=== PATIENT | male | born 1965 | race Caucasian/White ===

== ENCOUNTER → 2022-10-01 11:33 | Outpatient (CLI) | payer MEDICARE, MEDICAID, SELFPAY ==
[2022-10-01 19:18] LABS: Add Manual Diff / Slide Review NO; Basophils Absolute Auto 100 /uL (0-100); Basophils Percent Auto 0.7 % (0-2); Eosinophils Absolute Auto 400 /uL (0-450); Eosinophils Percent Auto 3.6 % (2-4); Hematocrit 48.3 % (41-53); Hemoglobin 16.7 g/dL (13.5-17.5); Lymphocytes Absolute Auto 1800 /uL (1100-4500); Lymphocytes Percent Auto 18.1 % (25-40); Mean Corpuscular HGB Conc 34.6 % (30-36); Mean Corpuscular Volume 86.5 fL (80-100); Monocytes Absolute Auto 600 /uL (0-900); Monocytes Percent Auto 6.5 % (3-14); Neutrophils Absolute Auto 6900 /uL (1500-7000); Neutrophils Percent Auto 71.1 % (50-75); Platelet Count 334 X10^3/uL (150-400); Red Blood Cell Count 5.58 X10^6/uL (4.5-5.9); Red Cell Distribution Width 14.3 % (11.6-14.8); White Blood Cell Count 9.7 X10^3/uL (4.5-11.0)
[2022-10-01 19:40] LABS: Alanine Aminotransferase 31 IU/L (<50); Albumin 4.5 g/dL (3.5-5.0); Albumin Globulin Ratio 1.5 (1.0-2.8); Alkaline Phosphatase 99 U/L (38-126); Aspartate Aminotransferase 31 IU/L (17-59); Bilirubin Total 0.8 mg/dL (0.2-1.3); Blood Urea Nitrogen 17 mg/dL (9-20); C-Reactive Protein Quant 0.6 mg/dL (<1.0); Calcium 9.3 mg/dL (8.4-10.2); Carbon Dioxide 30 mmol/L (22-32); Chloride 101 mmol/L (98-107); Cholesterol 180 mg/dL (140-199); Estimated Glomerular Filt Rate > 60 mL/min (>60); Globulin 3.1 g/dL (1.7-4.1); Glucose 106 mg/dL (70-100); HDL Cholesterol 34 mg/dL (40-60); HEMOLYSIS 16 (0-50); LDL Cholesterol Calculated 120 mg/dL (<100); Potassium 4.5 mmol/L (3.4-5.1); Sodium 138 mmol/L (137-145); Total Protein 7.6 g/dL (6.3-8.2); Triglycerides 130 mg/dL (35-150)
[2022-10-01 19:45] LABS: NT-proBNP (BNP-Adult 18+) 511 pg/mL (<125)
[2022-10-01 20:02] LABS: Erythrocyte Sedimentation Rate 4 MM/HR (0-15)
[2022-10-01 20:06] LABS: TSH w/ Reflex to FT4 1.66 uIU/mL (0.47-4.68)
[2022-10-02 23:36] LABS: x Labcorp Estim. Avg Glu (eAG) 123 mg/dL (.); x Labcorp Hemoglobin A1c 5.9 % (4.8-5.6)
== END ==
PROVIDERS: PCP Family Medicine; Visit Provider Family Medicine
DX: L03.90 Cellulitis, unspecified (principal); I10 Essential (primary) hypertension; R06.00 Dyspnea, unspecified; I89.0 Lymphedema, not elsewhere classified; M17.9 Osteoarthritis of knee, unspecified
CPT/HCPCS: 80053; 80061; 83036; 83880; 84443; 85025; 85651; 86140

== ENCOUNTER 2023-12-02 18:51 | Inpatient (IN) | payer MEDICARE, MEDICAID, SELFPAY ==
[2023-12-02] VITALS (11 sets, daily range): BP systolic 170–216; BP diastolic 97–119; PULSE 89–119; RESP 18–37; TEMP 37.2; O2SAT 92–96; BMI 53.4
--- NOTE | 2023-12-02 19:31 | DI.RAD.S_ITS ---
PROCEDURE: XR CHEST 1V INDICATIONS: suspected sepsis TECHNIQUE: One view of the chest was acquired. COMPARISON: None. FINDINGS: Surgical changes and devices: None. Lungs and pleura: Questionable mildly prominent interstitial markings. No pleural effusions or pneumothorax. Mediastinum: Mediastinal contours appear normal. Heart size is significantly enlarged. Bones and chest wall: No suspicious bony lesions. Overlying soft tissues appear unremarkable. IMPRESSION: The heart is significantly enlarged. Questionable mild prominence of the interstitial markings, correlate for signs of pulmonary edema. Dictated by: Prakash Alexander M.D. on 12/02/2023 at 20:01 Approved by: Prakash Alexander M.D. on 12/02/2023 at 20:02
--- NOTE | 2023-12-02 19:52 | PC.NURSE ---
TROUBLE CLERK note: Gave patient a complete bed bath, changed linens under him, cleaned panus folds and placed barrier cream with folded pillow cases to prevent skin breakdown. Elevated legs at knees.
[2023-12-02 20:07] LABS: Add Manual Diff / Slide Review NO; Basophils Absolute Auto 0 /uL (0-100); Basophils Percent Auto 0.4 % (0-2); Eosinophils Absolute Auto 200 /uL (0-450); Eosinophils Percent Auto 2.5 % (2-4); Hemoglobin 14.4 g/dL (13.5-17.5); Lymphocytes Absolute Auto 1100 /uL (1100-4500); Lymphocytes Percent Auto 11.1 % (25-40); Mean Corpuscular HGB Conc 32.8 % (30-36); Mean Corpuscular Hemoglobin 27.3 PG (26-34); Mean Corpuscular Volume 83.4 fL (80-100); Monocytes Absolute Auto 500 /uL (0-900); Monocytes Percent Auto 5.5 % (3-14); Neutrophils Absolute Auto 7700 /uL (1500-7000); Neutrophils Percent Auto 80.5 % (50-75); Platelet Count 455 X10^3/uL (150-400); Red Blood Cell Count 5.28 X10^6/uL (4.5-5.9); Red Cell Distribution Width 15.7 % (11.6-14.8); White Blood Cell Count 9.5 X10^3/uL (4.5-11.0)
--- NOTE | 2023-12-02 20:07 | PC.NURSE ---
Pt reports that he fell and hit his head. Pt denies C spine pain. Dr Shankar notified and asked if he wanted C collar placed. did not want C collar placed.
[2023-12-02 20:22] LABS: INR 1.1 (0.9-1.3); Prothrombin Time 12.9 SECONDS (9.4-12.5)
[2023-12-02 20:25] LABS: PTT Partial Thromboplastin Tim 38 SECONDS (25.1-36.5)
[2023-12-02 20:31] LABS: Alanine Aminotransferase 17 IU/L (<50); Albumin 3.6 g/dL (3.5-5.0); Alkaline Phosphatase 104 U/L (38-126); Aspartate Aminotransferase 18 IU/L (17-59); Bilirubin Total 0.4 mg/dL (0.2-1.3); Blood Urea Nitrogen 16 mg/dL (9-20); Calcium 8.5 mg/dL (8.4-10.2); Carbon Dioxide 31 mmol/L (22-32); Chloride 99 mmol/L (98-107); Estimated Glomerular Filt Rate > 60 mL/min (>60); Globulin 3.5 g/dL (1.7-4.1); Glucose 97 mg/dL (70-100); HEMOLYSIS < 15 (0-50); Lipase 62 U/L (23-300); Potassium 4.1 mmol/L (3.4-5.1); Sodium 137 mmol/L (137-145); Total Protein 7.1 g/dL (6.3-8.2)
[2023-12-02 20:33] LABS: Lactate (Lactic Acid) 1.3 mmol/L (0.7-2.1)
[2023-12-02] MEDS: SODIUM CHLORIDE 0.9% 1,000 ML 1000 ML IV (20:39)
[2023-12-02 20:59] LABS: Bacteria Urine None Seen; Culture Indicated Urine Cult Not Indicated; RBC Urine None Seen (0-5/HPF); Squamous Epithelial Cell Urine None Seen (0-5/HPF); Urine Volume 10mL (spun); WBC Urine None Seen (0-5/HPF)
--- NOTE | 2023-12-02 21:34 | ED_ITS ---
HPI - Fall General Chief Complaint: Fall Stated Complaint: Found Down x4 Days Time Seen by Provider: 12/02/23 19:26 Source: patient and EMS Mode of arrival: EMS History of Present Illness HPI Narrative: Patient is a 58-year-old male who arrives in the emergency department by EMS after they were called by the patient's family member who found him on the floor of his house. Patient states he has had quite a bit of mobility issues secondary to back pain and knee discomfort. He also has lower extremity swelling. He states he was difficulty with mobility at baseline. Several days ago he was sitting on a chair in his house. He states the chair broke and he fell backwards. He did hit his head. No loss of consciousness. He states he was unable to get up off of the floor secondary to weakness. He has been lying on the floor for the past 4 days. Has not had much to eat or drink at this time. He stated that he was near the refrigerator and was able to get some small things out of the refrigerator but has been unable to stand and get up. He was a family member who came over to check on him found him sitting on the floor. He reports no chest pain or shortness of breath. No extremity injuries. He does have some bruising to his right shoulder but is able to move 4 extremities. Related Data Home Medications Medication Instructions Recorded Confirmed furosemide 20 mg tablet 20 mg PO DAILY 12/03/23 12/03/23 spironolactone 25 mg tablet 25 mg PO DAILY 12/03/23 12/03/23 Previous Rx's Medication Instructions Recorded citalopram 20 mg tablet 20 mg PO DAILY #30 tabs 09/18/22 gabapentin 100 mg capsule 100 mg PO TID #60 caps 09/18/22 furosemide 20 mg tablet 20 mg PO QAM to decrease swelling. 07/20/23 take every morning #30 tabs spironolactone 25 mg tablet 25 mg PO DAILY #30 tabs 07/20/23 Allergies Allergy/AdvReac Type Severity Reaction Status Date / Time No Known Drug Allergies Allergy Verified 07/20/23 15:40 Review of Systems Review of Systems ROS Unobtainable: All systems reviewed & are unremarkable except as noted in HPI and below Patient History Medical History Opioid dependence in remission Morbid obesity with BMI of 45.0-49.9, adult Hypertension Lymphedema Cellulitis Social History household members: none Smoking Status: Current every day smoker alcohol intake: former additional social history: On disability No current insurance divorce, loss of dog, deaths, depressed tobacco: wants to quit food: tries to eat healthy -- but likes burgers -- eats veggies, quit etoh -- a long time ago -- recently increased- 2-3 /week HISTORY OF OPIOID addiction for PAIN -- off now sig trouble with mobility and car is not working pt has had sig problems with blood pressure in the past -- stops medication 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 [facility] 09/2022 Smoking Status: Current every day smoker Exam Initial Vital Signs Initial Vital Signs: Vital Signs Pulse Rate 103 H 12/02/23 19:06 Blood Pressure 216/116 H 12/02/23 19:06 Pulse Oximetry 93 12/02/23 19:06 Const General: disheveled and No ill appearing Nutritional Appearance: overweight HENVT Head: normal to inspection and normocephalic Mouth: moist mucous membranes (Dry mucous membranes) Resp Effort & Inspection: normal respiratory effort Auscultation: clear to auscultation bilaterally Cardio Rate: regular rate Rhythm: regular rhythm Back/Spine/Pelvis Cervical Spine: No cervical spinal tenderness Skin Other: Contusion to right shoulder Neuro General: patient alert, patient awake, patient oriented x3 and moves all extremities Extrem General: edema Course Orders Ordered: ED Orders 12/02/23 19:19 CK [Creatine Kinase] Stat Comprehensive Metabolic Panel Stat Lactate (Lactic Acid) Stat Lipase Stat Procalcitonin Stat 12/02/23 19:30 Consult to [employer] - Property Technician Stat 12/02/23 19:31 XR chest 1V Stat EKG-12 Lead Stat RT Consult Eval and Treat NOW 12/02/23 19:55 Complete Blood Count AUTO DIFF Stat PTT Partial Thromboplastin [place] Stat Prothrombin Time INR Stat 12/02/23 20:14 Blood Culture Stat 12/02/23 20:39 Urine Microscopic Stat 12/02/23 22:43 Education, smoking cessation ONGOING 12/02/23 22:46 Consult to Occupational Therapy Evaluate & Treat 12/02/23 22:47 Consult to Physical Therapy Evaluate & Treat Acetaminophen (Acetaminophen 325 Mg Tablet) 650 mg PO Q6H PRN PRN Reason: Fever/Mild Pain (1-3) Hydrocodone Bitart/Acetaminophen (Hydrocodone/Acet 5/325 Tablet) 1 tab PO Q4H PRN PRN Reason: Pain, Moderate (4-6) Last Admin: 12/03/23 01:38 Dose: 1 tab Documented By: Heparin Sodium (Porcine) (Heparin 5,000 Unit/Ml Vial) 5,000 unit SUBCUT BID [facility] Last Admin: 12/03/23 01:38 Dose: 5,000 unit Documented By: Sodium Chloride (Normal Saline 0.9%) 1,000 mls @ 100 mls/hr IV CONT [facility] Last Admin: 12/03/23 01:10 Dose: 100 mls/hr Documented By: Naloxone HCl (Naloxone 0.4 Mg/Ml Vial) 0.2 mg IV Q2MIN PRN PRN Reason: Opiate Reversal Ondansetron HCl (Ondansetron 4 Mg/2 Ml Inj) 4 mg IV NOW PRN PRN Reason: Nausea And Vomiting Ondansetron HCl (Ondansetron 4 Mg Odt) 4 mg SL NOW PRN PRN Reason: Nausea And Vomiting Ondansetron HCl (Ondansetron 4 Mg/2 Ml Inj) 4 mg IV Q8HR PRN PRN Reason: Nausea And Vomiting Oxycodone/Acetaminophen (Oxycodone/Acetaminophen 5/325 Tablet) 1 tab PO Q6HR PRN PRN Reason: Pain, Moderate (4-6) Sodium Chloride (Sodium Chloride 0.9% Flush) 10 ml IV PRN PRN PRN Reason: Flush Sodium Chloride (Sodium Chloride 0.9% Flush) 10 ml IV BID [facility] Zolpidem Tartrate (Zolpidem 5 Mg Tablet) 5 mg PO BEDTIME PRN PRN Reason: Sleep Last Admin: 12/03/23 01:38 Dose: 5 mg Documented By: Discontinued Medications Sodium Chloride (Normal Saline 0.9%) 1,000 mls @ 1,000 mls/hr IV BOLUS ONE Stop: 12/02/23 20:30 Last Infusion: 12/02/23 22:14 Dose: Infused Documented By: Admin: 12/02/23 20:39 Dose: 1,000 mls/hr Documented By: Vital Signs Vital signs: Vital Signs - 8 hr 12/02/23 19:06 12/02/23 19:06 12/02/23 19:18 Temperature 98.9 F Pulse Rate 103 H 119 H Pulse Rate [Bilateral Dorsalis Pedis] Respiratory Rate 24 Blood Pressure 216/116 H 216/116 H Pulse Oximetry 93 92 Oxygen Delivery Method Room Air 12/02/23 19:37 12/02/23 19:41 12/02/23 19:59 Temperature Pulse Rate 95 H Pulse Rate [Bilateral Dorsalis Pedis] 100 H Respiratory Rate Blood Pressure 208/119 H Pulse Oximetry Oxygen Delivery Method 12/02/23 19:59 12/02/23 20:00 12/02/23 20:30 Temperature Pulse Rate 92 H 89 93 H Pulse Rate [Bilateral Dorsalis Pedis] Respiratory Rate 24 30 H 37 H Blood Pressure Pulse Oximetry 96 Oxygen Delivery Method 12/02/23 20:34 12/02/23 20:34 12/02/23 21:00 Temperature Pulse Rate 93 H Pulse Rate [Bilateral Dorsalis Pedis] Respiratory Rate 25 H Blood Pressure 193/108 H 197/98 H Pulse Oximetry 93 Oxygen Delivery Method 12/02/23 21:00 12/02/23 21:30 12/02/23 21:30 Temperature Pulse Rate 91 H 93 H Pulse Rate [Bilateral Dorsalis Pedis] Respiratory Rate 20 18 Blood Pressure 170/97 H Pulse Oximetry 95 95 Oxygen Delivery Method MDM - Fall Lab Data Attestation: I reviewed the patient's lab results. 12/02/23 19:55 12/02/23 19:19 Labs: Lab Results 12/02/23 12/02/23 12/02/23 Range/Units 19:19 19:55 20:39 WBC 9.5 (4.5-11.0) X10^3/uL RBC 5.28 (4.5-5.9) X10^6/uL Hgb 14.4 (13.5-17.5) g/dL Hct 44.0 (41-53) % MCV 83.4 (80-100) fL MCH 27.3 (26-34) PG MCHC 32.8 (30-36) % RDW 15.7 H (11.6-14.8) % Plt Count 455 H (150-400) X10^3/uL Neut % (Auto) 80.5 H (50-75) % Lymph % (Auto) 11.1 L (25-40) % Rich % (Auto) 5.5 (3-14) % Eos % (Auto) 2.5 (2-4) % Baso % (Auto) 0.4 (0-2) % Neut # (Auto) 7700 H (9611-5659) /uL Lymph # (Auto) 1100 (3414-1088) /uL Rich # (Auto) 500 (0-900) /uL Eos # (Auto) 200 (0-450) /uL Baso # (Auto) 0 (0-100) /uL PT 12.9 H (9.4-12.5) SECONDS INR 1.1 (0.9-1.3) APTT 38 H (25.1-36.5) SECONDS Sodium 137 (137-145) mmol/L Potassium 4.1 (3.4-5.1) mmol/L Chloride 99 (98-107) mmol/L Carbon Dioxide 31 (22-32) mmol/L BUN 16 (9-20) mg/dL Creatinine 1.14 (0.66-1.25) mg/dL Estimated GFR > 60 (>60) mL/min BUN/Creatinine Ratio 14.0 (6-22) Glucose 97 (70-100) mg/dL Lactate 1.3 (0.7-2.1) mmol/L Calcium 8.5 (8.4-10.2) mg/dL Total Bilirubin 0.4 (0.2-1.3) mg/dL AST 18 (17-59) IU/L ALT 17 (<50) IU/L Alkaline Phosphatase 104 (38-126) U/L Total Creatine Kinase 34 L (55-170) U/L Total Protein 7.1 (6.3-8.2) g/dL Albumin 3.6 (3.5-5.0) g/dL Globulin 3.5 (1.7-4.1) g/dL Albumin/Globulin Ratio 1.0 (1.0-2.8) Lipase 62 (23-300) U/L Procalcitonin 0.050 (<0.5) ng/mL Urine RBC None seen (0-5/HPF) Urine WBC None seen (0-5/HPF) Ur Squamous Epith Cells None seen (0-5/HPF) Urine Bacteria None seen (None) Ur Culture Indicated? Cult not indicated Vol Urine Centrifuged 10ml (spun) Point of Care Testing Glucose POC 88 Urine Dip Bedside Urine Glucose Negative Bedside Urine Bilirubin - Negative Bedside Urine Ketone - Negative Urine Specific [place] 1.010 Bedside Urine Occult Blood - Negative Bedside Urine pH 7.0 Bedside Urine Protein +/- 15 Bedside Urine Urobilinogen - Negative Bedside Urine Nitrite - Negative Bedside Urine Leukocytes - Negative Esterase Imaging Data Chest x-ray: Radiologist's Impression: PROCEDURE: XR CHEST 1V INDICATIONS: suspected sepsis TECHNIQUE: One view of the chest was acquired. COMPARISON: None. FINDINGS: Surgical changes and devices: None. Lungs and pleura: Questionable mildly prominent interstitial markings. No pleural effusions or pneumothorax. Mediastinum: Mediastinal contours appear normal. Heart size is significantly enlarged. Bones and chest wall: No suspicious bony lesions. Overlying soft tissues appear unremarkable. IMPRESSION: The heart is significantly enlarged. Questionable mild prominence of the interstitial markings, correlate for signs of pulmonary edema. MDM Narrative Medical decision making narrative: Patient was clinically dehydrated as he does have dry mucous membranes poor skin turgor. I suspect that this is because he has had little to drink over the past couple days because of lying on the ground. He does have contusion to his right shoulder but has full range of motion of the right shoulder. No lower extremity tenderness. Neck is cleared by nexus criteria. He did hit his head but that was 4 days ago and he was alert and oriented with a GCS of 15 in his not on anticoagulation. He was not in rhabdo. Given his presentation today in his dehydration in his lack of mobility recommended admission to the hospital. Discussed the case with Dr. Hooks hospitalist on-call who will admit. Discussed the need for admission with the patient who expressed understanding and agreement as well. Discharge Plan Departure Patient Disposition: Admitted as Observation Clinical Impression: Dehydration, Contusion of right shoulder Admit Date/Time: 12/02/23 23:18 Admit Provider: Jorge Hooks
[2023-12-02 21:53] LABS: Creatine Kinase 34 U/L (55-170)
[2023-12-03] VITALS (7 sets, daily range): BP systolic 160–182; BP diastolic 78–118; PULSE 85–94; RESP 16–18; TEMP 36.8–37.5; O2SAT 94–98
[2023-12-03] MEDS: SODIUM CHLORIDE 0.9% 1,000 ML 100 ML IV (01:10)
[2023-12-03] MEDS: ZOLPIDEM 5 MG TABLET PO (01:38)
[2023-12-03] MEDS: HYDROCODONE/ACET 5/325 TABLET 1 TAB PO ×2 (01:38→06:06)
[2023-12-03] MEDS: HEPARIN 5,000 UNIT/ML VIAL 5000 UNIT SUBCUT ×3 (01:38→22:34)
[2023-12-03 06:00] LABS: Add Manual Diff / Slide Review NO; Basophils Absolute Auto 200 /uL (0-100); Basophils Percent Auto 3.2 % (0-2); Eosinophils Absolute Auto 200 /uL (0-450); Eosinophils Percent Auto 3.6 % (2-4); Hematocrit 38.8 % (41-53); Hemoglobin 12.9 g/dL (13.5-17.5); Lymphocytes Absolute Auto 1200 /uL (1100-4500); Lymphocytes Percent Auto 18.9 % (25-40); Mean Corpuscular HGB Conc 33.3 % (30-36); Mean Corpuscular Hemoglobin 27.5 PG (26-34); Mean Corpuscular Volume 82.6 fL (80-100); Monocytes Absolute Auto 500 /uL (0-900); Monocytes Percent Auto 7.1 % (3-14); Neutrophils Absolute Auto 4300 /uL (1500-7000); Neutrophils Percent Auto 67.2 % (50-75); Platelet Count 457 X10^3/uL (150-400); Red Blood Cell Count 4.69 X10^6/uL (4.5-5.9); White Blood Cell Count 6.5 X10^3/uL (4.5-11.0)
--- NOTE | 2023-12-03 06:07 | PM.HP.1 ---
History of Present Illness History of Present Illness Chief complaint: Found Down x4 Days Narrative: 58-year-old with past medical history of hypertension, morbid obesity, chronic lower extremities lymphedema, opioid dependence in remission, presents with a fall and was found down for four days. Per the patient report, the patient was sitting in his recliner when it collapsed and he fell to the floor. The patient had contusion of his right shoulder. The patient was too weak to get up and was down on the ground for three almost 4 days. Patient denies any lost of consciousness, but admit to hit his head lightly. Patient denies any headache. In our ER, the patient was hemodynamically stable without any signs of infection. Chest x-ray shows now clear sign of pneumonia. The patient, however, saturating well. Due to , patient shoulder pain as well as difficulty functioning at home, our ER physician would like to admit the patient for IV fluid hydration as well as for physical therapy. [facility] Medical History Opioid dependence in remission Morbid obesity with BMI of 45.0-49.9, adult Hypertension Lymphedema Cellulitis Social History household members: none Smoking Status: Current every day smoker alcohol intake: former additional social history: On disability No current insurance divorce, loss of dog, deaths, depressed tobacco: wants to quit food: tries to eat healthy -- but likes burgers -- eats veggies, quit etoh -- a long time ago -- recently increased- 2-3 /week HISTORY OF OPIOID addiction for PAIN -- off now sig trouble with mobility and car is not working pt has had sig problems with blood pressure in the past -- stops medication 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 [facility] 09/2022 Meds Home Medications and Allergies Home Medications Medication Instructions Recorded Confirmed Type citalopram 20 mg tablet 20 mg PO DAILY #30 tabs 09/18/22 07/20/23 Rx gabapentin 100 mg capsule 100 mg PO TID #60 caps 09/18/22 07/20/23 Rx furosemide 20 mg tablet 20 mg PO QAM to decrease swelling. 07/20/23 07/20/23 Rx take every morning #30 tabs spironolactone 25 mg tablet 25 mg PO DAILY #30 tabs 07/20/23 07/20/23 Rx furosemide 20 mg tablet 20 mg PO DAILY 12/03/23 12/03/23 History spironolactone 25 mg tablet 25 mg PO DAILY 12/03/23 12/03/23 History Allergies Allergy/AdvReac Type Severity Reaction Status Date / Time No Known Drug Allergies Allergy Verified 07/20/23 15:40 Review of Systems Review of Systems ROS: Yes All systems reviewed with the patient and are negative except as otherwise documented Exam Vital Signs (past 8 hours): - 12/03/23 00:10 12/03/23 00:27 12/03/23 05:00 Temperature 98.9 F 98.4 F 98.8 F Pulse Rate 93 H 85 86 Respiratory Rate 18 16 18 Blood Pressure 176/118 H 165/78 H 160/102 H Pulse Oximetry 94 94 96 Oxygen Delivery Method Room Air Oxygen Flow Rate 0 0 Oxygen Delivery Method Room Air Oxygen Flow Rate 0 Narrative Exam Narrative: GENERAL: Morbid obese male. The patient is not in any acute distressed. Awake and alert. HEENT: Nonicteric sclerae, PERRLA, EOMI. Oropharynx clear. Moist mucous membranes. Conjunctivae appear well perfused. HEART: Regular rate and rhythm without murmurs. No lower extremities edema. LUNGS: Clear to auscultation bilaterally. No wheezing, crackles or rhonchi ABDOMEN: Soft, positive bowel sounds, nontender. SKIN: Bilateral LEs lymphadema with R>L No rash, no excessive bruising, petechiae, or purpura. NEUROLOGIC: AxO x 3. Cranial nerves II-XII intact without motor/sensory deficit. Objective Labs 12/03/23 05:30 12/02/23 19:19 Labs: Laboratory Results - last 24 hr 12/02/23 12/02/23 12/02/23 19:19 19:55 20:39 WBC 9.5 RBC 5.28 Hgb 14.4 Hct 44.0 MCV 83.4 MCH 27.3 MCHC 32.8 RDW 15.7 H Plt Count 455 H Neut % (Auto) 80.5 H Lymph % (Auto) 11.1 L [place] % (Auto) 5.5 Eos % (Auto) 2.5 Baso % (Auto) 0.4 Neut # (Auto) 7700 H Lymph # (Auto) 1100 [place] # (Auto) 500 Eos # (Auto) 200 Baso # (Auto) 0 PT 12.9 H INR 1.1 APTT 38 H Sodium 137 Potassium 4.1 Chloride 99 Carbon Dioxide 31 BUN 16 Creatinine 1.14 Estimated GFR > 60 BUN/Creatinine Ratio 14.0 Glucose 97 Lactate 1.3 Calcium 8.5 Total Bilirubin 0.4 AST 18 ALT 17 Alkaline Phosphatase 104 Total Creatine Kinase 34 L Total Protein 7.1 Albumin 3.6 Globulin 3.5 Albumin/Globulin Ratio 1.0 Lipase 62 Procalcitonin 0.050 Urine RBC None seen Urine WBC None seen Ur Squamous Epith Cells None seen Urine Bacteria None seen Ur Culture Indicated? Cult not indicated Vol Urine Centrifuged 10ml (spun) 12/03/23 05:30 WBC 6.5 RBC 4.69 Hgb 12.9 L Hct 38.8 L MCV 82.6 MCH 27.5 MCHC 33.3 RDW 16.0 H Plt Count 457 H Neut % (Auto) 67.2 Lymph % (Auto) 18.9 L [place] % (Auto) 7.1 Eos % (Auto) 3.6 Baso % (Auto) 3.2 H Neut # (Auto) 4300 Lymph # (Auto) 1200 [place] # (Auto) 500 Eos # (Auto) 200 Baso # (Auto) 200 H PT INR APTT Sodium Potassium Chloride Carbon Dioxide BUN Creatinine Estimated GFR BUN/Creatinine Ratio Glucose Lactate Calcium Total Bilirubin AST ALT Alkaline Phosphatase Total Creatine Kinase Total Protein Albumin Globulin Albumin/Globulin Ratio Lipase Procalcitonin Urine RBC Urine WBC Ur Squamous Epith Cells Urine Bacteria Ur Culture Indicated? Vol Urine Centrifuged Assessment & Plan Assessment & Plan narrative: Mechanical Fall with right shoulder contusion. Admit the patient to medical floor under observation. Note CK levels is not elevated. Patient is morbidly obese with chronic lowwer extremities lymphedema. Will need PTOT in the morning. We need reassessment for any home Health need at home. Dehydration. Patient states that he was down for at least three days. IV fluid and monitor renal function and electrolyte. Hypertension. Monitor blood pressure medication accordingly. DVT prophylaxis heparin Q. Code status full code. Disposition likely to home with home health in 1 to 2 days. Time-Based Coding :: [TOTAL MINUTES] spent with patient and on the chart (including review of chart, obtaining history, exam, reviewing outside data, placing orders, documenting exam and treatment plan, and counseling patient) on [DATE].
[2023-12-03 06:16] LABS: Alanine Aminotransferase 14 IU/L (<50); Albumin 3.4 g/dL (3.5-5.0); Alkaline Phosphatase 91 U/L (38-126); Aspartate Aminotransferase 17 IU/L (17-59); BUN Creatinine Ratio 13.7 (6-22); Bilirubin Total 0.5 mg/dL (0.2-1.3); Blood Urea Nitrogen 13 mg/dL (9-20); Calcium 8.3 mg/dL (8.4-10.2); Carbon Dioxide 30 mmol/L (22-32); Chloride 100 mmol/L (98-107); Estimated Glomerular Filt Rate > 60 mL/min (>60); Globulin 3.3 g/dL (1.7-4.1); Glucose 99 mg/dL (70-100); HEMOLYSIS < 15 (0-50); Potassium 3.9 mmol/L (3.4-5.1); Sodium 136 mmol/L (137-145); Total Protein 6.7 g/dL (6.3-8.2)
[2023-12-03] MEDS: SPIRONOLACTONE 25 MG TABLET PO (08:53)
[2023-12-03] MEDS: OXYCODONE/ACETAMINOPHEN 5/325 TABLET 1 TAB PO (08:53)
[2023-12-03] MEDS: GABAPENTIN 100 MG CAPSULE PO ×3 (08:53→22:34)
[2023-12-03] MEDS: SODIUM CHLORIDE 0.9% FLUSH 10 ML IV ×2 (08:54→22:34)
[2023-12-03 11:09] LABS: C-Reactive Protein Quant 5.6 mg/dL (<1.0)
[2023-12-03 11:23] LABS: Procalcitonin 0.059 ng/mL (<0.5)
[2023-12-03 11:33] LABS: Erythrocyte Sedimentation Rate 1 MM/HR (0-15)
[2023-12-03] MEDS: cefTRIAXone 1,000 MG in SODIUM CHLORIDE 0.9% 100 ML 200 MG IV (11:35)
--- NOTE | 2023-12-03 12:21 | PT-IP ANOTE ---
PT consult received. PT reviewed chart and checked in on pt. Pt states that he has just started eating lunch. Will con't PT efforts at a later time.
[2023-12-03] MEDS: VANCOMYCIN 2,500 MG in SODIUM CHLORIDE 0.9% 500 ML 250 MG IV (12:22)
--- NOTE | 2023-12-03 14:24 | PC.NURSE ---
Panfilo from: [employer] called in to inform us that the patient has no safe environment to go back to. He made a statement to the medics that he was just going to wait on the floor to . Child Welfare Assistant will be consulted.
--- NOTE | 2023-12-03 14:26 | P.PN_ITS ---
Subjective Subjective Date Patient Seen: 12/03/23 Time Patient Seen: 09:40 Interval history: 58-year-old with past medical history of hypertension, morbid obesity, chronic lower extremities lymphedema, opioid dependence in remission, presents with a fall and was found down for four days. Per the patient report, the patient was sitting in his recliner when it collapsed and he fell to the floor. The patient had contusion of his right shoulder. The patient was too weak to get up and was down on the ground for three almost 4 days. Patient denies any lost of consciousness, but admit to hit his head lightly. Patient denies any headache. In our ER, the patient was hemodynamically stable without any signs of infection. Chest x-ray shows now clear sign of pneumonia. The patient, however, saturating well. Due to , patient shoulder pain as well as difficulty functioning at home, our ER physician would like to admit the patient for IV fluid hydration as well as for physical therapy. Interval history: Patient notes that he has been weak due to chronic right lower extremity cellulitis, recurrent over the past few days, with foul-smelling discharge. Exam Vital Signs (past 8 hours): - 12/03/23 09:00 12/03/23 12:00 Temperature 98.3 F Pulse Rate 94 H Respiratory Rate 16 Blood Pressure 182/103 H 174/115 H Pulse Oximetry 98 Oxygen Flow Rate 0 Oxygen Delivery Method Room Air Oxygen Flow Rate 0 Narrative Exam Narrative: GENERAL: This is a well-nourished, well-developed patient, in no apparent distress. EYES: Pupils equal round and reactive. Extraocular motions intact. No scleral icterus. No injection or drainage. ENT: Mucous membranes pink and moist. NECK: Supple, nontender, no meningeal signs. CARDIOVASCULAR: Regular rate and rhythm without murmurs, gallops, or rubs. RESPIRATORY: Clear to auscultation. GASTROINTESTINAL: Abdomen soft, non-tender, nondistended. EXTREMITIES: 1+ right ankle edema. NEUROLOGIC: Alert, oriented, speech fluent, full upper and lower motor strength, no focal deficits evident. DERMATOLOGIC: Extensive cellulitic change from right posterior ankle ankle to proximal posterior and lateral calf just behind the knee, with purulent foul- smelling discharge. Objective Labs 12/03/23 05:30 12/03/23 05:30 Labs: Laboratory Results - last 24 hr 12/02/23 12/02/23 12/02/23 19:19 19:55 20:39 WBC 9.5 RBC 5.28 Hgb 14.4 Hct 44.0 MCV 83.4 MCH 27.3 MCHC 32.8 RDW 15.7 H Plt Count 455 H Neut % (Auto) 80.5 H Lymph % (Auto) 11.1 L [place] % (Auto) 5.5 Eos % (Auto) 2.5 Baso % (Auto) 0.4 Neut # (Auto) 7700 H Lymph # (Auto) 1100 [place] # (Auto) 500 Eos # (Auto) 200 Baso # (Auto) 0 ESR PT 12.9 H INR 1.1 APTT 38 H Sodium 137 Potassium 4.1 Chloride 99 Carbon Dioxide 31 BUN 16 Creatinine 1.14 Estimated GFR > 60 BUN/Creatinine Ratio 14.0 Glucose 97 Lactate 1.3 Calcium 8.5 Total Bilirubin 0.4 AST 18 ALT 17 Alkaline Phosphatase 104 Total Creatine Kinase 34 L C-Reactive Protein Total Protein 7.1 Albumin 3.6 Globulin 3.5 Albumin/Globulin Ratio 1.0 Lipase 62 Procalcitonin 0.050 Urine RBC None seen Urine WBC None seen Ur Squamous Epith Cells None seen Urine Bacteria None seen Ur Culture Indicated? Cult not indicated Vol Urine Centrifuged 10ml (spun) 12/03/23 05:30 WBC 6.5 RBC 4.69 Hgb 12.9 L Hct 38.8 L MCV 82.6 MCH 27.5 MCHC 33.3 RDW 16.0 H Plt Count 457 H Neut % (Auto) 67.2 Lymph % (Auto) 18.9 L [place] % (Auto) 7.1 Eos % (Auto) 3.6 Baso % (Auto) 3.2 H Neut # (Auto) 4300 Lymph # (Auto) 1200 [place] # (Auto) 500 Eos # (Auto) 200 Baso # (Auto) 200 H ESR 1 PT INR APTT Sodium 136 L Potassium 3.9 Chloride 100 Carbon Dioxide 30 BUN 13 Creatinine 0.95 Estimated GFR > 60 BUN/Creatinine Ratio 13.7 Glucose 99 Lactate Calcium 8.3 L Total Bilirubin 0.5 AST 17 ALT 14 Alkaline Phosphatase 91 Total Creatine Kinase C-Reactive Protein 5.6 H Total Protein 6.7 Albumin 3.4 L Globulin 3.3 Albumin/Globulin Ratio 1.0 Lipase Procalcitonin 0.059 Urine RBC Urine WBC Ur Squamous Epith Cells Urine Bacteria Ur Culture Indicated? Vol Urine Centrifuged [facility] Medical History Opioid dependence in remission Morbid obesity with BMI of 45.0-49.9, adult Hypertension Lymphedema Cellulitis Social History household members: none Smoking Status: Current every day smoker alcohol intake: former additional social history: On disability No current insurance divorce, loss of dog, deaths, depressed tobacco: wants to quit food: tries to eat healthy -- but likes burgers -- eats veggies, quit etoh -- a long time ago -- recently increased- 2-3 /week HISTORY OF OPIOID addiction for PAIN -- off now sig trouble with mobility and car is not working pt has had sig problems with blood pressure in the past -- stops medication 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 [facility] 09/2022 Assessment & Plan Assessment & Plan narrative: 1. Right lower extremity cellulitis, severe. Start ceftriaxone and vancomycin. Obtain blood and wound cultures. Admit to inpatient status. 2. Dehydration. Improved with overnight IV hydration. Stop and encourage oral intake. 3. Weakness and ground level fall due to 1. 4. Hypertension. Monitor blood pressure medication accordingly. 5. Severe obesity. 6. DVT prophylaxis: Subcutaneous heparin Code status full code. The patient is admitted inpatient status as he will require at least 2 midnights of inpatient level care. Plan: -inpatient status -IV antibiotics -follow cultures -PT/OT consultation Time-Based Coding :: [TOTAL MINUTES] spent with patient and on the chart (including review of chart, obtaining history, exam, reviewing outside data, placing orders, documenting exam and treatment plan, and counseling patient) on [DATE]. PROFEE Charge codes Subsequent inpatient/observation care: 32659
--- NOTE | 2023-12-03 14:26 | PC.NURSE ---
ELECTRICAL LINESWORKER consult ordered.
--- NOTE | 2023-12-03 14:47 | PC.NURSE ---
A call was made to the RN in care of Mr. Sparrow. Jorge WILEY room 209, was made aware of what Britney rice stated @ time of note.
--- NOTE | 2023-12-03 16:07 | PT-IP ANOTE ---
PT checks on pt a second time today and he is getting a bed bath. Will con't PT efforts next date.
--- NOTE | 2023-12-03 16:10 | OT.IPNOTE ---
Getting a bed bath to check on pt tomorrow for OT eval.
--- NOTE | 2023-12-03 16:29 | DIET.CONS ---
Dietary Consultation Note Admission Date: 12/02/2023 23:18 Assessment: 58 y M admitted after being found down on floor for 4 days and with lower extremity cellulitis . RD screened for low MNA score. Met w/ pt at bedside. Reports was able to eat items such as a sandwich the first day, a few various leftover items, veggie chips, and fluids during the 4 days he was down from his fridge. Before had normal intakes, but pt does note he's been trying to lose weight and will go 2-3 days without eating and has been trying to choose healthy foods - wraps and more fruits. Discouraged him from fasting for 2-3 days and provided educ on importance of multiple meals daily. Discussed importance of getting adequate energy-protein while recovering in hospital. He notes his appetite is lower than normal. Encouraged intake as tolerate. Open to try Vj to support healing. Ht: 175.26 cm Wt: 164.2 kg BMI: 53.4 UBW: 187.901 kg on 07/20/23 (-12.6% loss in 4 months, severe) Last BM: 12/02/23 (12/02/23 23:19) MNA: 8 Ranulfo Score: 16 Diet: 12/02/23 Breakfast Heart Healthy Diet Diet Modifications: 12/02/23 19:31 NPO Diet Diet Modifications: NPO Type: NPO except for Meds Labs: RBC 4.69 X10^6/uL (4.5-5.9) 12/03/23 05:30 Hgb 12.9 g/dL (13.5-17.5) L 12/03/23 05:30 Hct 38.8 % (41-53) L 12/03/23 05:30 Creatinine 0.95 mg/dL (0.66-1.25) 12/03/23 05:30 Lactate 1.3 mmol/L (0.7-2.1) 12/02/23 19:19 Nutrition Diagnosis: Inadequate oral intake r/t reduced access to food after fall on ground aeb <75% of estimated energy needs for 4 days Increased nutrient needs (protein) r/t healing aeb severe lower extremity cellulitis Interventions: 1. Vj trial 2. Monitor po intakes and supplement if intakes are less than 75% Monitoring/Evaluations: po intakes, vj tolerance Electronically Signed by: Ayaka Conti 12/03/23 16:29 Clinical Dietitian [address] [address]
[2023-12-04] VITALS (7 sets, daily range): BP systolic 130–211; BP diastolic 49–141; PULSE 74–92; RESP 16–18; TEMP 37–37.6; O2SAT 91–98
[2023-12-04] MEDS: VANCOMYCIN 1,250 MG/250 ML PIGGYBACK 250 MG IV ×3 (00:55→18:43)
--- NOTE | 2023-12-04 07:39 | PM.PN.1 ---
Subjective Subjective Date Patient Seen: 12/04/23 Time Patient Seen: 13:30 Interval history: 58-year-old with past medical history of hypertension, morbid obesity, chronic lower extremities lymphedema, opioid dependence in remission, presents with a fall and was found down for four days. Per the patient report, the patient was sitting in his recliner when it collapsed and he fell to the floor. The patient had contusion of his right shoulder. The patient was too weak to get up and was down on the ground for three almost 4 days. Patient denies any lost of consciousness, but admit to hit his head lightly. Patient denies any headache. In our ER, the patient was hemodynamically stable without any signs of infection. Chest x-ray shows now clear sign of pneumonia. The patient, however, saturating well. Due to , patient shoulder pain as well as difficulty functioning at home, our ER physician would like to admit the patient for IV fluid hydration as well as for physical therapy. Interval history: Patient reports that his right leg is less tender and swollen. He notes a longstanding history of hypertension. Exam Vital Signs (past 8 hours): - 12/04/23 00:00 Temperature 98.6 F Pulse Rate 74 Respiratory Rate 18 Blood Pressure 155/86 H Pulse Oximetry 96 Oxygen Flow Rate 0 Oxygen Delivery Method Room Air Oxygen Flow Rate 0 Narrative Exam Narrative: GENERAL: This is a well-nourished, well-developed patient, in no apparent distress. EYES: Pupils equal round and reactive. Extraocular motions intact. No scleral icterus. No injection or drainage. ENT: Mucous membranes pink and moist. NECK: Supple, nontender, no meningeal signs. CARDIOVASCULAR: Regular rate and rhythm without murmurs, gallops, or rubs. RESPIRATORY: Clear to auscultation. GASTROINTESTINAL: Abdomen soft, non-tender, nondistended. EXTREMITIES: 1+ right ankle edema. NEUROLOGIC: Alert, oriented, speech fluent, full upper and lower motor strength, no focal deficits evident. DERMATOLOGIC: Extensive but improved cellulitic change from right posterior ankle ankle to proximal posterior and lateral calf just behind the knee. Objective Labs 12/03/23 05:30 12/03/23 05:30 Labs: Laboratory Results - last 24 hr 12/03/23 05:30 ESR 1 C-Reactive Protein 5.6 H Procalcitonin 0.059 PFSH Medical History Opioid dependence in remission Morbid obesity with BMI of 45.0-49.9, adult Hypertension Lymphedema Cellulitis Social History household members: none Smoking Status: Current every day smoker alcohol intake: former additional social history: On disability No current insurance divorce, loss of dog, deaths, depressed tobacco: wants to quit food: tries to eat healthy -- but likes burgers -- eats veggies, quit etoh -- a long time ago -- recently increased- 2-3 /week HISTORY OF OPIOID addiction for PAIN -- off now sig trouble with mobility and car is not working pt has had sig problems with blood pressure in the past -- stops medication 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 [facility] 09/2022 Assessment & Plan Assessment & Plan narrative: 1. Right lower extremity cellulitis, severe. Continue ceftriaxone and vancomycin. Follow blood and wound cultures. Continue inpatient status. 2. Dehydration. Improved with overnight IV hydration. Stop and encourage oral intake. 3. Weakness and ground level fall due to 1. 4. Venous insufficiency. Start furosemide 40 mg IV every 8 hours. 5. Hypertension. Start amlodipine 5 mg daily on 12/04/2023. 6. Severe obesity. 7. DVT prophylaxis: Subcutaneous heparin Code status full code. The patient is admitted inpatient status as he will require at least 2 midnights of inpatient level care. Plan: -inpatient status -IV antibiotics -follow cultures -PT/OT consultation [facility] PROFEE Charge codes Subsequent inpatient/observation care: 82622 Lab Results Common Lab Results- Last: White Blood Count 6.5 X10^3/uL (4.5-11.0) 12/03/23 Red Blood Count 4.69 X10^6/uL (4.5-5.9) 12/03/23 Hemoglobin 12.9 g/dL (13.5-17.5) L 12/03/23 Hematocrit 38.8 % (41-53) L 12/03/23 Mean Corpuscular Volume 82.6 fL (80-100) 12/03/23 Mean Corpuscular Hemoglobin 27.5 PG (26-34) 12/03/23 Mean Corpuscular Hemoglobin Concent 33.3 % (30-36) 12/03/23 Red Cell Distribution Width 16.0 % (11.6-14.8) H 12/03/23 Platelet Count 457 X10^3/uL (150-400) H 12/03/23 Neutrophils (%) (Auto) 67.2 % (50-75) 12/03/23 Lymphocytes (%) (Auto) 18.9 % (25-40) L 12/03/23 Monocytes (%) (Auto) 7.1 % (3-14) 12/03/23 Eosinophils (%) (Auto) 3.6 % (2-4) 12/03/23 Basophils (%) (Auto) 3.2 % (0-2) H 12/03/23 Neutrophils # (Auto) 4300 /uL (8106-4473) 12/03/23 Sodium Level 136 mmol/L (137-145) L 12/03/23 Potassium Level 3.9 mmol/L (3.4-5.1) 12/03/23 Chloride Level 100 mmol/L (98-107) 12/03/23 Carbon Dioxide Level 30 mmol/L (22-32) 12/03/23 Blood Urea Nitrogen 13 mg/dL (9-20) 12/03/23 Creatinine 0.95 mg/dL (0.66-1.25) 12/03/23 Estimat Glomerular Filtration Rate > 60 mL/min (>60) 12/03/23 BUN/Creatinine Ratio 13.7 (6-22) 12/03/23 Glucose Level 99 mg/dL (70-100) 12/03/23 Calcium Level 8.3 mg/dL (8.4-10.2) L 12/03/23 Total Bilirubin 0.5 mg/dL (0.2-1.3) 12/03/23 Aspartate Amino Transf (AST/SGOT) 17 IU/L (17-59) 12/03/23 Alanine Aminotransferase (ALT/SGPT) 14 IU/L (<50) 12/03/23 Alkaline Phosphatase 91 U/L (38-126) 12/03/23 Total Protein 6.7 g/dL (6.3-8.2) 12/03/23 Albumin 3.4 g/dL (3.5-5.0) L 12/03/23 Globulin 3.3 g/dL (1.7-4.1) 12/03/23 Albumin/Globulin Ratio 1.0 (1.0-2.8) 12/03/23 Triglycerides Level 130 mg/dL (35-150) 10/01/22 Cholesterol Level 180 mg/dL (140-199) 10/01/22 HDL Cholesterol 34 mg/dL (40-60) L 10/01/22 LDL Cholesterol, Calculated 120 mg/dL (<100) H 10/01/22 Thyroid Stimulating Hormone (TSH) 1.66 uIU/mL (0.47-4.68) 10/01/22 Alanine Aminotransferase (ALT/SGPT) 14 IU/L (<50) 12/03/23 C-Reactive Protein 5.6 mg/dL (<1.0) H 12/03/23 Erythrocyte Sedimentation Rate 1 MM/HR (0-15) 12/03/23 Aspartate Amino Transf (AST/SGOT) 17 IU/L (17-59) 12/03/23 Blood Urea Nitrogen 13 mg/dL (9-20) 12/03/23 Creatinine 0.95 mg/dL (0.66-1.25) 12/03/23 Estimat Glomerular Filtration Rate > 60 mL/min (>60) 12/03/23 BUN/Creatinine Ratio 13.7 (6-22) 12/03/23 Cholesterol Level 180 mg/dL (140-199) 10/01/22 Hemoglobin 12.9 g/dL (13.5-17.5) L 12/03/23 Red Blood Count 4.69 X10^6/uL (4.5-5.9) 12/03/23 Hematocrit 38.8 % (41-53) L 12/03/23 Lipase 62 U/L (23-300) 12/02/23 Platelet Count 457 X10^3/uL (150-400) H 12/03/23 Prothrombin Time 12.9 SECONDS (9.4-12.5) H 12/02/23 Prothromb Time International Ratio 1.1 (0.9-1.3) 12/02/23
--- NOTE | 2023-12-04 09:30 | PT.IPTN ---
Current Diagnoses Contusion of right shoulder, initial encounter (12/02/23) Physical Therapy Treatment Note M3 PT-IP Subjective Start: 12/03/23 12:07 Freq: NEEDED Status: Active Protocol: Document 12/04/23 09:30 AB (Rec: 12/04/23 12:25 AB [id number]) Subjective Physical Therapy Visit Type Type Administrative Note Visit Start Time 09:30 Visit Stop Time 09:45 Notes checked on pt and obtained PLOF. Checked pt's BP prior to mobility: 211/141. nurse in room. will hold PT eval at this time due to high BP. will f/u.
[2023-12-04] MEDS: ACETAMINOPHEN 325 MG TABLET 650 MG PO (09:47)
[2023-12-04] MEDS: HEPARIN 5,000 UNIT/ML VIAL 5000 UNIT SUBCUT (09:47)
[2023-12-04] MEDS: SPIRONOLACTONE 25 MG TABLET PO (09:48)
[2023-12-04] MEDS: GABAPENTIN 100 MG CAPSULE PO ×3 (09:48→20:32)
[2023-12-04] MEDS: OXYCODONE/ACETAMINOPHEN 5/325 TABLET 1 TAB PO ×2 (09:48→20:32)
[2023-12-04] MEDS: SODIUM CHLORIDE 0.9% FLUSH 10 ML IV ×3 (09:49→23:13)
[2023-12-04] MEDS: NICOTINE 21 MG PATCH TOP (10:24)
--- NOTE | 2023-12-04 11:05 | OT.IPNOTE ---
HOLD tonia as pt having high bp 211/141.
[2023-12-04] MEDS: cefTRIAXone 1,000 MG in SODIUM CHLORIDE 0.9% 100 ML 200 MG IV (11:37)
[2023-12-04] MEDS: AMLODIPINE 5 MG TABLET PO (11:46)
[2023-12-04] MEDS: FUROSEMIDE 40 MG/4 ML VIAL IV ×2 (15:13→23:12)
--- NOTE | 2023-12-04 15:34 | CM.DANOTE ---
Initial DCP Assessment Visit Note Late Entry for 12/03/23 Reviewed EMR and team rounds for status updates. Met with pt at bedside to introduce self and role, pt was found to be alert/oriented, resting in bed, and able to briefly meet with this STUCCO PLASTERER to discuss d/c needs, which are still not quite clarified at this time. Pt resides in a trailor on his brother's property on [address]. He had been living independently, although it's not clear how much assistance he was receiving from his brother. Transport will depend on whether he returns home initially or is eligible for SNF rehab. More assessment needed. Payor: Medicare, Medicaid PCP: Neelam Doss Pt is a 58 year-old M who presented to the ED via EMS from [place] after his brother found him in his house on the floor. Pt has mobility issues at baseline, presents with significant, chronic appearing wounds on his lower extremities, and significant lower extremity lyphadema. He shared that he was sitting in his recliner when it broke, causing him to fall to the floor, and hit his head. He was reportedly on the floor for 4-days before his brother found him, although he did not have rhabdo, and was able to scoot around on the floor and get things out of the refrigerator. In the ED, he was found to be clinically dehydrated, and had cellulitis of his lower extremities. He was started on IV fluids and antibiotics, and admitted to the floor for continued tx and evaluation. Pt would benefit from a referral/consultation from the wound care clinic prior to d/c home for recommendations on further OP tx. Pt would be able to access free [employer] passes for this through his Medicaid Transportation, however he is already very limited in resources and likely would not be able to have the transportation to the [employer] from his home. Second possible option is to do a Home Health referral for wound care. DCP will continue to monitor and assist with final recs and assistance needs.
--- NOTE | 2023-12-04 16:38 | PT-IP ANOTE ---
checked on pt this afternoon and pt continues to have high BP: 176/118. will hold PT eval. will f/u tomorrow.
[2023-12-04] MEDS: VANCOMYCIN TROUGH 1 REQUEST MISC (18:00)
[2023-12-04 18:48] LABS: Vancomycin Trough 15.4 ug/mL (10-20)
[2023-12-04] MEDS: ENOXAPARIN 40 MG/0.4 ML SYRINGE SUBCUT (20:33)
[2023-12-05 01:00] VITALS: BP 160/78; PULSE 94; RESP 18; TEMP 36.6; O2SAT 99
[2023-12-05] MEDS: VANCOMYCIN 1,250 MG/250 ML PIGGYBACK 250 MG IV ×3 (02:02→18:21)
[2023-12-05] MEDS: SODIUM CHLORIDE 0.9% FLUSH 10 ML IV ×3 (02:02→08:31)
[2023-12-05] MEDS: ZOLPIDEM 5 MG TABLET PO ×2 (03:37→21:47)
[2023-12-05 05:00] VITALS: BP 156/88; PULSE 89; RESP 18; TEMP 37; O2SAT 96
[2023-12-05] MEDS: FUROSEMIDE 40 MG/4 ML VIAL IV ×2 (06:35→14:55)
[2023-12-05 06:45] LABS: BUN Creatinine Ratio 16.3 (6-22); Blood Urea Nitrogen 17 mg/dL (9-20); Calcium 8.9 mg/dL (8.4-10.2); Carbon Dioxide 35 mmol/L (22-32); Chloride 94 mmol/L (98-107); Estimated Glomerular Filt Rate > 60 mL/min (>60); Glucose 102 mg/dL (70-100); HEMOLYSIS < 15 (0-50); Magnesium 1.7 mg/dL (1.6-2.3); Potassium 3.8 mmol/L (3.4-5.1); Sodium 135 mmol/L (137-145)
[2023-12-05 08:00] VITALS: BP 156/102; PULSE 85; RESP 18; TEMP 36.5
--- NOTE | 2023-12-05 08:22 | PC.NURSE ---
Addendum entered by Neha Chauhan R.N. 12/05/23 11:08: Patient had a 6 beat run of [facility] labs at 1104. Notified. Original Note: Patient is sitting up in his chair eating his breakfast. He is pleasant and cooperative with care. He voided 600cc of light yellow urine in the urinal. Patient has cellulitis to his r.burch, area is wheepy and red. He also has flaky, dry skin to his shins and a macerated are on his bottom. He denies discomfort at this time, will ask him his pain level.
[2023-12-05] MEDS: GABAPENTIN 100 MG CAPSULE PO ×3 (08:30→21:33)
[2023-12-05] MEDS: AMLODIPINE 5 MG TABLET PO (08:30)
[2023-12-05] MEDS: NICOTINE 21 MG PATCH TOP (08:30)
[2023-12-05] MEDS: SPIRONOLACTONE 25 MG TABLET PO (08:30)
[2023-12-05] MEDS: ENOXAPARIN 40 MG/0.4 ML SYRINGE SUBCUT ×2 (08:31→21:33)
[2023-12-05] MEDS: OXYCODONE/ACETAMINOPHEN 5/325 TABLET 1 TAB PO ×2 (10:55→18:20)
[2023-12-05] MEDS: CITALOPRAM 10 MG TABLET 20 MG PO (10:55)
[2023-12-05 12:00] VITALS: BP 180/123; PULSE 83; RESP 18; TEMP 36.7; O2SAT 91
[2023-12-05] MEDS: cefTRIAXone 1,000 MG in SODIUM CHLORIDE 0.9% 100 ML 200 MG IV (12:04)
--- NOTE | 2023-12-05 12:39 | PT-IP ANOTE ---
checked on pt. pt with BP of 175/118. talked with nurse and informed regarding high BP. nurse stated that pt already got all his medications. will hold PT this morning and recheck this afternoon.
--- NOTE | 2023-12-05 13:47 | P.PN_ITS ---
Subjective Subjective Date Patient Seen: 12/05/23 Time Patient Seen: 10:50 Interval history: 58-year-old with past medical history of hypertension, morbid obesity, chronic lower extremities lymphedema, opioid dependence in remission, presents with a fall and was found down for four days. Per the patient report, the patient was sitting in his recliner when it collapsed and he fell to the floor. The patient had contusion of his right shoulder. The patient was too weak to get up and was down on the ground for three almost 4 days. Patient denies any lost of consciousness, but admit to hit his head lightly. Patient denies any headache. In our ER, the patient was hemodynamically stable without any signs of infection. Chest x-ray shows now clear sign of pneumonia. The patient, however, saturating well. Due to , patient shoulder pain as well as difficulty functioning at home, our ER physician would like to admit the patient for IV fluid hydration as well as for physical therapy. Interval history: The patient states his right leg is improving significantly with much improved edema. He has had a net 5 L diuresis since yesterday. He admits to progressive and recurrent depression and wishes to restart citalopram which she had been on in the past. Exam Vital Signs (past 8 hours): - 12/05/23 08:00 12/05/23 12:00 Temperature 97.7 F 98.1 F Pulse Rate 85 83 Respiratory Rate 18 18 Blood Pressure 156/102 H 180/123 H Pulse Oximetry 91 Oxygen Flow Rate 0 Oxygen Delivery Method Room Air Oxygen Flow Rate 0 Narrative Exam Narrative: GENERAL: This is a well-nourished, well-developed patient, in no apparent distress. EYES: Pupils equal round and reactive. Extraocular motions intact. No scleral icterus. No injection or drainage. ENT: Mucous membranes pink and moist. NECK: Supple, nontender, no meningeal signs. CARDIOVASCULAR: Regular rate and rhythm without murmurs, gallops, or rubs. RESPIRATORY: Clear to auscultation. GASTROINTESTINAL: Abdomen soft, non-tender, nondistended. EXTREMITIES: 1+ right ankle edema. NEUROLOGIC: Alert, oriented, speech fluent, full upper and lower motor strength, no focal deficits evident. DERMATOLOGIC: Extensive improved cellulitic change from right posterior ankle ankle to proximal posterior and lateral calf just behind the knee, with large area of denuded skin posterolaterally on the calf with granulation tissue around the borders. Objective Labs 12/03/23 05:30 12/05/23 06:08 Labs: Laboratory Results - last 24 hr 12/04/23 12/05/23 17:52 06:08 Sodium 135 L Potassium 3.8 Chloride 94 L Carbon Dioxide 35 H BUN 17 Creatinine 1.04 Estimated GFR > 60 BUN/Creatinine Ratio 16.3 Glucose 102 H Calcium 8.9 Magnesium 1.7 Vancomycin Trough 15.4 PFSH Medical History Opioid dependence in remission Morbid obesity with BMI of 45.0-49.9, adult Hypertension Lymphedema Cellulitis Social History household members: none Smoking Status: Current every day smoker alcohol intake: former additional social history: On disability No current insurance divorce, loss of dog, deaths, depressed tobacco: wants to quit food: tries to eat healthy -- but likes burgers -- eats veggies, quit etoh -- a long time ago -- recently increased- 2-3 /week HISTORY OF OPIOID addiction for PAIN -- off now sig trouble with mobility and car is not working pt has had sig problems with blood pressure in the past -- stops medication 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 [facility] 09/2022 Assessment & Plan Assessment & Plan narrative: 1. Right lower extremity cellulitis, severe. Continue ceftriaxone and vancomycin. Follow blood and wound cultures, currently showing gram-negative bacilli in the wound with negative blood cultures so far. Continue inpatient status. 2. Dehydration. Resolved. 3. Weakness and ground level fall due to 1. 4. Venous insufficiency. Continue furosemide 40 mg IV every 8 hours. 5. Hypertension. Continue amlodipine 5 mg daily started on 12/04/2023, home spironolactone 25 mg daily, along with IV diuresis. 6. Depression. Restart citalopram 20 mg daily on 12/05/2023. 7. Severe obesity. 8. DVT prophylaxis: Subcutaneous heparin Code status full code. The patient is admitted inpatient status as he will require at least 2 midnights of inpatient level care. Plan: -inpatient status -IV antibiotics -follow cultures -IV diuresis -restart citalopram -PT/OT consultation Time-Based Coding :: [TOTAL MINUTES] spent with patient and on the chart (including review of chart, obtaining history, exam, reviewing outside data, placing orders, documenting exam and treatment plan, and counseling patient) on [DATE]. PROFEE Charge codes Subsequent inpatient/observation care: 79942
--- NOTE | 2023-12-05 13:50 | PT.IIE ---
Current Diagnoses Contusion of right shoulder, initial encounter (12/02/23) Medical History (Last Reviewed 12/05/23 @ 13:49 by Ric Woodson MD) Cellulitis Hypertension Lymphedema Morbid obesity with BMI of 45.0-49.9, adult Opioid dependence in remission Physical Therapy Inpatient Evaluation/Re-Eval M1 PT/OT-IP Prior Functional Status Start: 12/03/23 12:07 Freq: NEEDED Status: Active Protocol: Document 12/05/23 13:50 AB (Rec: 12/05/23 15:52 AB [id number]) Medical Review Prior Functional Status Medical History Reviewed Yes Communication able to make needs known Mobility and Gait pt stated that he has not been up to walk for ~ 6 months and usually just sits on his recliner. stated that he uses a bedpan and urinal for toileting needs and uses wipes for sponge bathing. pt stated that he was not able to move much ever since he gained his weight back. prior to that, he was able to walk using a 4WW Social History Household Members none Living Arrangements Mobile home Number of Floors (Floors) One Floor Number of Stairs To Enter/Railing? 3 steps L handle bar on edge of door Home Environment Standard Height Toilet,Tub/ Shower Home Equipment Four Wheel Walker,Hand Held Shower,Grab Bars In Shower Additional Social History Comment stated that his family lives around the same property where he is pt sleeps on a recliner M2 PT-IP Current Condition Start: 12/03/23 12:07 Freq: NEEDED Status: Active Protocol: Document 12/05/23 13:50 AB (Rec: 12/05/23 15:52 AB [id number]) Physical Therapy Current Condition Current Condition Evaluation Date 12/05/23 Treatment Diagnosis dehydration; R shoulder contusion; difficulty in walking Onset Date 12/02/23 M3 PT-IP Subjective Start: 12/03/23 12:07 Freq: NEEDED Status: Active Protocol: Document 12/05/23 13:50 AB (Rec: 12/05/23 15:52 AB [id number]) Subjective Physical Therapy Visit Type Type Initial Evaluation Visit Start Time 13:50 Visit Stop Time 14:20 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 of 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 0 Physical Therapy Visit Comments Patient Comments agreeable to do PT Therapy Pain Assessment Pain When Pain Assessed During Mobility Pain Present Pain Present Pain Reported Location Bilateral Knee Scale Used pain scale not stated Pain Management Techniques Distraction,Modification of Treatment,Re-positioning M4 PT-IP Mobility and Gait Start: 12/03/23 12:07 Freq: NEEDED Status: Active Protocol: Document 12/05/23 13:50 AB (Rec: 12/05/23 15:52 AB [id number]) PT-Bed Mobility Assessment Sit to Supine Sit to Supine Standby Assistance PT-Transfer Assessment Sit to and From Stand Sit to and from Stand Moderate Assistance,1 Person Assistance,Use of Upper Extremities Equipment Transfer Assistive Device Gait Belt,Front Wheeled Walker Orthotic/Prosthetic Devices or Brace: No Transfers Transfer Destination Bed Transfer Technique ambulated Transfer Ability Level of Assist Moderate Assistance,1 Person Assistance,Use of Upper Extremities Comments Mobility Comments pt sitting on the chair. BP checked 150/94. agreed to do PT. completed sit to stand from the chair mod A and cues. ambulated ~ 4 ft using FWW mod A and cues and stated that he needs to sit down. pt sat on EOB. pt just wants to get up in bed. sit to stand from EOB mod A and pt took side steps using FWW mod A to position towards HOB. pt completed sit to supine SBA. positioned pt in bed. call light and table placed within reach. Gait Assessment Gait Gait Assistance Required: Moderate Assistance Distance (Feet) 4 Able to Maintain Weight Bearing Status Yes During Gait Assistive Devices Assistive Device Gait Belt,Front Wheeled Walker Orthotic/Prosthetic Devices or Brace: No Gait Deviations General Gait Pattern Decreased Stride Length, Decreased Feet Clearance,Step- to Gait,Wide Based Gait Factors Limiting Gait Function Factors Limiting Gait Function Decreased Activity Tolerance, Decreased Strength,Difficulty Following Directions,Limited Range of Motion,Pain,Poor Balance,Poor Safety Awareness PT-Balance Assessment Sitting Balance and Reactions Static Sitting Balance Ability Normal Dynamic Sitting Balance Ability Good Standing Balance and Reactions Static Standing Balance Ability Poor Dynamic Standing Balance Ability Poor Device Used FWW M5 PT-IP Objective Assessments Start: 12/03/23 12:07 Freq: NEEDED Status: Active Protocol: Document 12/05/23 13:50 AB (Rec: 12/05/23 15:52 AB [id number]) Orientation Orientation/Cognition Level of Alertness Alert Orientation Name,Place,Situation Language Function Ability No Deficits Noted Safety Awareness Decreased Safety Awareness Memory Description No Deficits Noted Strength Lower Extremity Strength Assessment Within Functional Limits Muscle Tone Muscle Tone WNL Yes M6 PT-IP Treatment Start: 12/03/23 12:07 Freq: NEEDED Status: Active Protocol: Document 12/05/23 13:50 AB (Rec: 12/05/23 15:52 AB [id number]) Physical Therapy Treatment Education Education Provided Safety M7 PT-IP Assessment and Plan Start: 12/03/23 12:07 Freq: NEEDED Status: Active Protocol: Document 12/05/23 13:50 AB (Rec: 12/05/23 15:52 AB [id number]) PT Summary Assessment and Plan Potential Rehabilitation Potential Fair Status of Condition at Evaluation Evolving Summary Impairments Pain,ROM,Strength,Balance, Coordination,Sensation,Tone, Cognition,Bed Mobility, Transfers,Gait,Activity Tolerance Assessment Summary pt is a 58 y/o M who is admitted for dehydration and R shoulder contusion. pt stated that he sleeps on his recliner at home and it broke and he fell backwards with the chair thus the shoulder contusion but stated that he had chronic rotator cuff issues. pt requiring mod A with mobility using FWW for transfers/ambulation but unable to tolerate much activity with c/o fatigue and B knee pain. stated that he knees surgery on B knee but unable due to his medical condition. pt will benefit from SNF rehab to improve overall strength and mobility independence. Goals Bed Mobility Goal Independent Transfer Goal Standby Assistance,Front Wheeled Walker Gait Goal Standby Assistance,Front Wheel Walker Gait Distance 50 Other Goals improve transfers and ambulation using FWW ~ 100 ft mod I up/down 3 steps L side bar SBA Days to Meet Goals 10 Frequency of Treatment Frequency Of Treatment Once a Day Treatment Plan Physical Therapy Treatment Plan Bed Mobility Training,Transfer Training,Gait Training, Therapeutic Exercise,Balance Retraining,Discharge Planning, Hot or Cold Pack,Neuromuscular Re-ed,Coordination Retraining ,Manual Therapy Precautions Other Precautions falls Recommendations To Nursing Amount of Assist Needed 2 Person Assist Discharge Recommendations PT Discharge Recommendations SNF Rehab Transportation Needs at Discharge Wheelchair/Cabulance
[2023-12-05 16:00] VITALS: BP 167/110; PULSE 83; RESP 19; TEMP 36.9; O2SAT 92
[2023-12-05 20:00] VITALS: BP 168/112; PULSE 110; RESP 22; TEMP 37; O2SAT 97
[2023-12-06] VITALS (8 sets, daily range): BP systolic 130–169; BP diastolic 90–124; PULSE 81–90; RESP 16–27; TEMP 36.4–37.3; O2SAT 90–94
[2023-12-06] MEDS: FUROSEMIDE 40 MG/4 ML VIAL IV ×4 (00:07→23:28)
[2023-12-06] MEDS: SODIUM CHLORIDE 0.9% FLUSH 10 ML IV ×3 (00:07→21:23)
[2023-12-06] MEDS: VANCOMYCIN 1,250 MG/250 ML PIGGYBACK 250 MG IV (02:41)
[2023-12-06] MEDS: OXYCODONE/ACETAMINOPHEN 5/325 TABLET 1 TAB PO ×3 (06:15→21:22)
[2023-12-06] MEDS: ENOXAPARIN 40 MG/0.4 ML SYRINGE SUBCUT ×2 (08:59→21:23)
[2023-12-06] MEDS: NICOTINE 21 MG PATCH TOP (09:00)
[2023-12-06] MEDS: AMLODIPINE 5 MG TABLET PO (09:01)
[2023-12-06] MEDS: CITALOPRAM 10 MG TABLET 20 MG PO (09:01)
[2023-12-06] MEDS: SPIRONOLACTONE 25 MG TABLET PO (09:01)
[2023-12-06] MEDS: GABAPENTIN 100 MG CAPSULE PO ×3 (09:01→21:23)
[2023-12-06] MEDS: cefTRIAXone 1,000 MG in SODIUM CHLORIDE 0.9% 100 ML 100 MG IV (09:02)
--- NOTE | 2023-12-06 11:18 | PT.IPTN ---
Current Diagnoses Contusion of right shoulder, initial encounter (12/02/23) Physical Therapy Treatment Note M2 PT-IP Current Condition Start: 12/03/23 12:07 Freq: NEEDED Status: Active Protocol: Document 12/05/23 13:50 AB (Rec: 12/05/23 15:52 AB [id number]) Physical Therapy Current Condition Current Condition Evaluation Date 12/05/23 Treatment Diagnosis dehydration; R shoulder contusion; difficulty in walking Onset Date 12/02/23 M3 PT-IP Subjective Start: 12/03/23 12:07 Freq: NEEDED Status: Active Protocol: Document 12/06/23 10:45 MB (Rec: 12/06/23 11:18 MB [id number]) Subjective Physical Therapy Visit Type Type Treatment Note Visit Start Time 10:45 Visit Stop Time 11:00 Number of DISPATCHER TUGBOAT Visits 0 Physical Therapy Visit Comments Patient Comments Pt reports concern about going home and not having help, recalls the experience with his right leg, pain, previous infection with maggots and relief when he got care. He reports history of B LE pain. Therapy Pain Assessment Pain When Pain Assessed During Mobility Pain Present Pain Present Pain Reported Location Right knee Intensity 10 M4 PT-IP Mobility and Gait Start: 12/03/23 12:07 Freq: NEEDED Status: Active Protocol: Document 12/06/23 10:45 MB (Rec: 12/06/23 11:18 MB [id number]) PT-Bed Mobility Assessment Rolling Type of Rolling Roll to Right,Roll to Left Level of Assist Standby Assistance,1 Person Assistance Supine to Sit Supine to Sit Standby Assistance,1 Person Assistance,Head of Bed Elevated,Bedrails Sit to Supine Sit to Supine Standby Assistance,1 Person Assistance,Head of Bed Elevated,Bedrails Scooting Scooting to Edge of Bed Standby Assistance PT-Transfer Assessment Sit to and From Stand Sit to and from Stand Minimal Assistance,1 Person Assistance,Use of Upper Extremities Equipment Transfer Assistive Device Gait Belt,Front Wheeled Walker Orthotic/Prosthetic Devices or Brace: No Transfer Ability Level of Assist Minimal Assistance,1 Person Assistance,Use of Upper Extremities Comments Mobility Comments Cues to push up from the bed and PT raises bottom of bed rail to help him reach back and push up from it for transfers Gait Assessment Gait Gait Assistance Required: Minimum Assistance,1 Person Assist Distance (Feet) 4 Able to Maintain Weight Bearing Status Yes During Gait Assistive Devices Assistive Device Gait Belt,Front Wheeled Walker Orthotic/Prosthetic Devices or Brace: No Gait Deviations General Gait Pattern Antalgic,Decreased Stride Length,Decreased Feet Clearance,Step-to Gait,Wide Based Gait Factors Limiting Gait Function Factors Limiting Gait Function Decreased Activity Tolerance, Decreased Strength,Difficulty Following Directions,Limited Range of Motion,Pain,Poor Balance,Poor Safety Awareness Comments Gait Comments Pt reports pain with every step and favors his right leg. Right leg becomes more purplish with the longer time it is in dependent position. Pt reports pain is in the knee and he has antalgic steps. PT-Balance Assessment Sitting Balance and Reactions Static Sitting Balance Ability Normal Dynamic Sitting Balance Ability Good Standing Balance and Reactions Static Standing Balance Ability Fair Dynamic Standing Balance Ability Fair Device Used FWW M5 PT-IP Objective Assessments Start: 12/03/23 12:07 Freq: NEEDED Status: Active Protocol: Document 12/05/23 13:50 AB (Rec: 12/05/23 15:52 AB [id number]) Orientation Orientation/Cognition Level of Alertness Alert Orientation Name,Place,Situation Language Function Ability No Deficits Noted Safety Awareness Decreased Safety Awareness Memory Description No Deficits Noted Strength Lower Extremity Strength Assessment Within Functional Limits Muscle Tone Muscle Tone WNL Yes M6 PT-IP Treatment Start: 12/03/23 12:07 Freq: NEEDED Status: Active Protocol: Document 12/05/23 13:50 AB (Rec: 12/05/23 15:52 AB [id number]) Physical Therapy Treatment Education Education Provided Safety M7 PT-IP Assessment and Plan Start: 12/03/23 12:07 Freq: NEEDED Status: Active Protocol: Document 12/06/23 10:45 MB (Rec: 12/06/23 11:18 MB [id number]) PT Summary Assessment and Plan Potential Rehabilitation Potential Fair Status of Condition at Evaluation Evolving Summary Impairments Pain,ROM,Strength,Balance, Coordination,Bed Mobility, Transfers,Gait,Activity Tolerance Progress Towards Goals Slow Progress due to Pain Assessment Summary Pt progresses with transfers today. Gait distance is limited by pain, right greater than left LE and mostly in his knee d/t arthritis/bone on bone per patient. Goals Bed Mobility Goal Independent Transfer Goal Standby Assistance,Front Wheeled Walker Gait Goal Standby Assistance,Front Wheel Walker Gait Distance 50 Other Goals improve transfers and ambulation using FWW ~ 100 ft mod I up/down 3 steps L side bar SBA Days to Meet Goals 10 Frequency of Treatment Frequency Of Treatment Once a Day Treatment Plan Physical Therapy Treatment Plan Bed Mobility Training,Transfer Training,Gait Training, Therapeutic Exercise,Balance Retraining,Discharge Planning, Hot or Cold Pack,Neuromuscular Re-ed,Coordination Retraining ,Manual Therapy Precautions Other Precautions falls Recommendations To Nursing Amount of Assist Needed 1 Person Assist Discharge Recommendations PT Discharge Recommendations SNF Rehab Transportation Needs at Discharge Wheelchair/Cabulance
--- NOTE | 2023-12-06 11:49 | P.PN_ITS ---
Subjective Subjective Date Patient Seen: 12/06/23 Time Patient Seen: 11:00 Interval history: 58-year-old with past medical history of hypertension, morbid obesity, chronic lower extremities lymphedema, opioid dependence in remission, presents with a fall and was found down for four days. Per the patient report, the patient was sitting in his recliner when it collapsed and he fell to the floor. The patient had contusion of his right shoulder. The patient was too weak to get up and was down on the ground for three almost 4 days. Patient denies any lost of consciousness, but admit to hit his head lightly. Patient denies any headache. In our ER, the patient was hemodynamically stable without any signs of infection. Chest x-ray shows now clear sign of pneumonia. The patient, however, saturating well. Due to , patient shoulder pain as well as difficulty functioning at home, our ER physician would like to admit the patient for IV fluid hydration as well as for physical therapy. Interval history: The patient states his right leg is improving significantly with much improved edema. He has had a net 9.5 L diuresis since admission with weight down 24 lb. He admits to progressive and recurrent depression and was restarted on citalopram yesterday. He feels very weak after working with physical therapy and feels he will need longterm facility placement. Exam Vital Signs (past 8 hours): - 12/06/23 04:00 12/06/23 06:00 12/06/23 06:51 Temperature 97.8 F Pulse Rate 82 Respiratory Rate 18 Blood Pressure 161/107 H 160/108 H 130/90 Pulse Oximetry 94 Oxygen Flow Rate 0 12/06/23 08:00 Temperature 97.6 F Pulse Rate 87 Respiratory Rate 18 Blood Pressure 161/104 H Pulse Oximetry 90 L Oxygen Flow Rate 0 Oxygen Delivery Method Room Air Oxygen Flow Rate 0 Narrative Exam Narrative: GENERAL: This is a well-nourished, well-developed patient, in no apparent distress. EYES: Pupils equal round and reactive. Extraocular motions intact. No scleral icterus. No injection or drainage. ENT: Mucous membranes pink and moist. NECK: Supple, nontender, no meningeal signs. CARDIOVASCULAR: Regular rate and rhythm without murmurs, gallops, or rubs. RESPIRATORY: Clear to auscultation. GASTROINTESTINAL: Abdomen soft, non-tender, nondistended. EXTREMITIES: 1+ right ankle edema. NEUROLOGIC: Alert, oriented, speech fluent, full upper and lower motor strength, no focal deficits evident. DERMATOLOGIC: Extensive improved cellulitic change from right posterior ankle ankle to proximal posterior and lateral calf just behind the knee, with large area of denuded skin posterolaterally on the calf with granulation tissue around the borders. Objective Labs 12/03/23 05:30 12/05/23 06:08 [facility] Medical History Opioid dependence in remission Morbid obesity with BMI of 45.0-49.9, adult Hypertension Lymphedema Cellulitis Social History household members: none Smoking Status: Current every day smoker alcohol intake: former additional social history: On disability No current insurance divorce, loss of dog, deaths, depressed tobacco: wants to quit food: tries to eat healthy -- but likes burgers -- eats veggies, quit etoh -- a long time ago -- recently increased- 2-3 /week HISTORY OF OPIOID addiction for PAIN -- off now sig trouble with mobility and car is not working pt has had sig problems with blood pressure in the past -- stops medication 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 [facility] 09/2022 Assessment & Plan Assessment & Plan narrative: 1. Right lower extremity cellulitis, severe, culture positive for Proteus vulgaris. Continue ceftriaxone which will treat Proteus and other polymicrobial organisms. Discontinue Vancomycin 12/06/2023. Follow blood and wound cultures, currently showing gram-negative bacilli in the wound with negative blood cultures so far. Continue inpatient status. 2. Dehydration. Resolved. 3. Weakness and ground level fall due to 1. 4. Venous insufficiency. Continue furosemide 40 mg IV every 8 hours. 5. Hypertension. Improving. Continue to monitor. Continue amlodipine 5 mg daily started on 12/04/2023, home spironolactone 25 mg daily, along with IV diuresis. Consider additional antihypertensive therapy if needed, noting longstanding history of severe hypertension. 6. Depression. Restarted citalopram 20 mg daily on 12/05/2023. 7. Severe obesity. 8. DVT prophylaxis: Subcutaneous heparin Code status full code. The patient is admitted inpatient status as he will require at least 2 midnights of inpatient level care. Plan: -inpatient status -continue IV ceftriaxone, stop vancomycin -follow cultures -IV diuresis -continue citalopram -PT/OT consultation -longterm facility placement planning [facility] Charge codes Subsequent inpatient/observation care: [id number]
--- NOTE | 2023-12-06 14:38 | CM.DPC ---
Discussed patient with PT and Hospitalist in rounds, PT rec. SNF, patient agreeable. Spoke with patient at the bedside and he states he is agreeable to any SNF in the area that is willing to accept and has a bed. Possibly ready for d/c Thursday, [facility] will not have a male bed until mid to late week, did not send referral for this reason. Emailed referral to [facility], will need f/u and signed PASSR.
[2023-12-06] MEDS: ZOLPIDEM 5 MG TABLET PO (21:22)
[2023-12-07] VITALS (7 sets, daily range): BP systolic 134–189; BP diastolic 82–123; PULSE 82–95; RESP 12–20; TEMP 36.6–37.4; O2SAT 91–96
[2023-12-07 05:39] LABS: Add Manual Diff / Slide Review NO; Basophils Absolute Auto 100 /uL (0-100); Basophils Percent Auto 1.3 % (0-2); Eosinophils Absolute Auto 400 /uL (0-450); Eosinophils Percent Auto 6.1 % (2-4); Hematocrit 43.9 % (41-53); Hemoglobin 14.9 g/dL (13.5-17.5); Lymphocytes Absolute Auto 1600 /uL (1100-4500); Lymphocytes Percent Auto 23.4 % (25-40); Mean Corpuscular HGB Conc 33.9 % (30-36); Mean Corpuscular Volume 82.5 fL (80-100); Monocytes Absolute Auto 500 /uL (0-900); Monocytes Percent Auto 7.4 % (3-14); Neutrophils Absolute Auto 4300 /uL (1500-7000); Neutrophils Percent Auto 61.8 % (50-75); Platelet Count 467 X10^3/uL (150-400); Red Blood Cell Count 5.32 X10^6/uL (4.5-5.9); Red Cell Distribution Width 16.2 % (11.6-14.8); White Blood Cell Count 6.9 X10^3/uL (4.5-11.0)
[2023-12-07 05:52] LABS: Blood Urea Nitrogen 25 mg/dL (9-20); Calcium 8.9 mg/dL (8.4-10.2); Carbon Dioxide 38 mmol/L (22-32); Chloride 92 mmol/L (98-107); Estimated Glomerular Filt Rate > 60 mL/min (>60); Glucose 101 mg/dL (70-100); HEMOLYSIS < 15 (0-50); Potassium 3.7 mmol/L (3.4-5.1); Sodium 137 mmol/L (137-145)
[2023-12-07] MEDS: FUROSEMIDE 40 MG/4 ML VIAL IV ×3 (06:07→21:53)
--- NOTE | 2023-12-07 06:36 | PC.NURSE ---
NOC: 2330: Alerted via cont SpO2 monitoring to desaturation down to 88%, difficulty rousing patient. Applied 2L NC, SpO2 improved to 92% while sleeping. Care continues. 0530: Pt states discomfort d/t wound covering. Removed Kerlix wrap (loosened and sliding off ankle). Moistened the applied crumpled gauze pads and removed, dried wound, and replaced gauze pads with non-adherent Curad and wrapped in fresh Kerlix. Pt would benefit from wound care consult. Care continues.
--- NOTE | 2023-12-07 07:54 | PM.PN.1 ---
Subjective Subjective Interval history: Summary: 58-year-old with past medical history of hypertension, morbid obesity, chronic lower extremities lymphedema, opioid dependence in remission, presents with a fall and was found down for four days. Per the patient report, the patient was sitting in his recliner when it collapsed and he fell to the floor. The patient had contusion of his right shoulder. The patient was too weak to get up and was down on the ground for three almost 4 days. Patient denies any lost of consciousness, but admit to hit his head lightly. Patient denies any headache. In our ER, the patient was hemodynamically stable without any signs of infection. Chest x-ray shows now clear sign of pneumonia. The patient, however, saturating well. Due to , patient shoulder pain as well as difficulty functioning at home, our ER physician would like to admit the patient for IV fluid hydration as well as for physical therapy. Interval history: The patient states his right leg is improving significantly with much improved edema. He has had a net 9.5 L diuresis since admission with weight down 24 lb. He admits to progressive and recurrent depression and was restarted on citalopram yesterday. He feels very weak after working with physical therapy and feels he will need fdc facility placement. S: He is doing well today. His right leg continues to improve. He was no redness. An minimal discomfort is noted. She denies any dyspnea. He was not had a BM in about 6 days. Exam Vital Signs (past 8 hours): - 12/07/23 00:00 12/07/23 04:00 Temperature 98.6 F 98.2 F Pulse Rate 85 82 Respiratory Rate 20 Blood Pressure 161/116 H 166/123 H Pulse Oximetry 94 96 Oxygen Flow Rate 1 1 Oxygen Delivery Method Room Air Oxygen Flow Rate 1 Narrative Exam Narrative: NAD, alert and oriented. Fluent speech. Obese Lungs are clear, normal rate and effort. Heart is regular, no murmur gallop or rub. Abdomen is soft, non distended. Extremities right leg is more edematous than the left, it is dark purple but not red. The leg is also not warm. Objective Labs 12/07/23 05:13 12/07/23 05:13 Labs: Laboratory Results - last 24 hr 12/07/23 05:13 WBC 6.9 RBC 5.32 Hgb 14.9 Hct 43.9 MCV 82.5 MCH 28.0 MCHC 33.9 RDW 16.2 H Plt Count 467 H Neut % (Auto) 61.8 Lymph % (Auto) 23.4 L Saline % (Auto) 7.4 Eos % (Auto) 6.1 H Baso % (Auto) 1.3 Neut # (Auto) 4300 Lymph # (Auto) 1600 Saline # (Auto) 500 Eos # (Auto) 400 Baso # (Auto) 100 Sodium 137 Potassium 3.7 Chloride 92 L Carbon Dioxide 38 H BUN 25 H Creatinine 1.19 Estimated GFR > 60 BUN/Creatinine Ratio 21.0 Glucose 101 H Calcium 8.9 PFSH Medical History Opioid dependence in remission Morbid obesity with BMI of 45.0-49.9, adult Hypertension Lymphedema Cellulitis Social History household members: none Smoking Status: Current every day smoker alcohol intake: former additional social history: On disability No current insurance divorce, loss of dog, deaths, depressed tobacco: wants to quit food: tries to eat healthy -- but likes burgers -- eats veggies, quit etoh -- a long time ago -- recently increased- 2-3 /week HISTORY OF OPIOID addiction for PAIN -- off now sig trouble with mobility and car is not working pt has had sig problems with blood pressure in the past -- stops medication 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 [facility] 09/2022 Assessment & Plan Assessment & Plan narrative: 1. Right lower extremity cellulitis, severe, culture positive for Proteus vulgaris. Continue ceftriaxone which will treat Proteus and other polymicrobial organisms. Discontinue Vancomycin 12/06/2023. Follow blood and wound cultures, currently showing gram-negative bacilli in the wound with negative blood cultures so far. Continue inpatient status. 2. Dehydration. Resolved. 3. Weakness and ground level fall due to 1. 4. Venous insufficiency. Continue furosemide 40 mg IV every 8 hours. 5. Hypertension. Improving. Continue to monitor. Continue amlodipine 5 mg daily started on 12/04/2023, home spironolactone 25 mg daily, along with IV diuresis. Consider additional antihypertensive therapy if needed, noting longstanding history of severe hypertension. 6. Depression. Restarted citalopram 20 mg daily on 12/05/2023. 7. Severe obesity. 8. DVT prophylaxis: Subcutaneous heparin Code status full code. The patient is admitted inpatient status as he will require at least 2 midnights of inpatient level care. Plan: -inpatient status -continue IV ceftriaxone, stopped vancomycin -leg elevation -follow cultures -continue IV diuresis -continue citalopram -PT/OT consultation -fdc facility placement planning Inpatient status [facility]AN[facility] is 12/07 to 12/08. [facility] facility is being sought. Time-Based Coding :: [TOTAL MINUTES] spent with patient and on the chart (including review of chart, obtaining history, exam, reviewing outside data, placing orders, documenting exam and treatment plan, and counseling patient) on [DATE].
[2023-12-07] MEDS: OXYCODONE/ACETAMINOPHEN 5/325 TABLET 1 TAB PO ×2 (09:55→21:53)
[2023-12-07] MEDS: GABAPENTIN 100 MG CAPSULE PO ×3 (09:55→21:53)
[2023-12-07] MEDS: AMLODIPINE 5 MG TABLET PO (09:55)
[2023-12-07] MEDS: CITALOPRAM 10 MG TABLET 20 MG PO (09:55)
[2023-12-07] MEDS: SPIRONOLACTONE 25 MG TABLET PO (09:55)
[2023-12-07] MEDS: NICOTINE 21 MG PATCH TOP (09:55)
[2023-12-07] MEDS: SODIUM CHLORIDE 0.9% FLUSH 10 ML IV ×2 (09:56→21:54)
[2023-12-07] MEDS: ENOXAPARIN 40 MG/0.4 ML SYRINGE SUBCUT ×2 (09:56→21:53)
--- NOTE | 2023-12-07 10:36 | PC.NURSE ---
Patient states that he is feeling better this morning. She has a dressing to his r.lower leg with non stick dressing and kurlex. Patient has an order for a wound consult and we have called their office. BS are clear this morning. Patient put on oxygen last night as sats went down into the 80s. He is working with occupational therapy now. Patient does have a small wound on his coccyx and bottom that is macerated. Old dressing taken off and patient cleaned up and barrier cream applied to bottom. Given one percocet for discomfort and patient seems to be feeling better.
--- NOTE | 2023-12-07 10:50 | OT.IP.EVAL ---
Current Diagnoses Contusion of right shoulder, initial encounter (12/02/23) Past Medical History (Last Reviewed 12/07/23 @ 07:55 by Stefan Montalvo MD) Cellulitis Hypertension Lymphedema Morbid obesity with BMI of 45.0-49.9, adult Opioid dependence in remission Occupational Therapy Inpatient Evaluation/Re-Eval M1 PT/OT-IP Prior Functional Status Start: 12/03/23 12:07 Freq: NEEDED Status: Active Protocol: Document 12/07/23 16:04 CGR (Rec: 12/07/23 16:19 CGR [id number]) Medical Review Prior Functional Status Medical History Reviewed Yes Communication able to make needs known Mobility and Gait Pt states that he has been minimally mobile in the last 6 months but was able to care for himself. He states this past summer he would walk down his drive with his 4ww. Activities of Daily Living and IADL's Pt was IND for ADLS but with difficulty. He lives alone in a ~30 travel trailer on his brothers land on [address]. He manages his own finances, medications, cooking, and has his sister in law machine operator hop picker anything he needs. He says that he has mostly been eating small wraps to try to stay healthy but has not been cooking anything recently. Social History Household Members none Living Arrangements Mobile home Number of Floors (Floors) One Floor Number of Stairs To Enter/Railing? 3 steps L handle bar on edge of door Home Environment Standard Height Toilet,Tub/ Shower Home Equipment Four Wheel Walker,Hand Held Shower,Grab Bars In Shower Additional Social History Comment pt sleeps on a recliner M2 OT-IP Current Condition Start: 12/07/23 16:04 Freq: Status: Active Protocol: Document 12/07/23 16:04 CGR (Rec: 12/07/23 16:19 CGR [id number]) Occupational Therapy Current Condition Current Condition Evaluation Date 12/07/23 Treatment Diagnosis dehydration, found down after 4 days Diagnosis Onset Date 12/02/23 M3 OT- IP Subjective and Pain Start: 12/07/23 16:04 Freq: Status: Active Protocol: Document 12/07/23 16:04 CGR (Rec: 12/07/23 16:19 CGR [id number]) OT- Subjective Occupational Therapy Visit Type Type Initial Evaluation Visit Start Time 10:14 Visit Stop Time 10:50 OT Pain Assessment Pain When Pain Assessed At Rest Pain Present Pain Present Pain Reported Location Bilateral Knee Intensity 7 Scale Used Numeric (0 - 10) Management Techniques Modification of Treatment,Re- positioning,Timing of Activity with Medications M4 OT- IP ADL's Start: 12/07/23 16:04 Freq: Status: Active Protocol: Document 12/07/23 16:04 CGR (Rec: 12/07/23 16:19 CGR [id number]) OT [id number] Comments OT Self-Feeding Comments not meal time OT ADL-Grooming General Evaluation Grooming Ability Independent Areas Needing Assistance Retrieving/Set-up of Grooming Items,Face Washing Comments OT Grooming Comments seated in chair OT ADL-Oral Care General Eval Oral Care Ability Independent Areas of Assistance Brushing Teeth,Retrieving/Set- Up of Items Comments Oral Care Comments seated in chair OT ADL-Dressing General Eval Lower Body Dressing Ability Total Assistance Areas Needing Assistance Socks Comments OT Dressing Comments Pt states he does not don socks at baseline as he is unable. OT ADL-Toileting Comments OT Toileting Comments not performed OT ADL-Bathing Comments OT Bathing Comments not performed M5 OT- IP IADL's Start: 12/07/23 16:04 Freq: Status: Active Protocol: Document 12/07/23 16:04 CGR (Rec: 12/07/23 16:19 CGR [id number]) OT-Instrumental Activities of Daily Living Deficits IADL Deficits Identified No Deficits Home Safety Awareness Awareness of Need for Assistance at Home Good Awareness Ability to Problem Solve Emergency Able to Problem Solve Situations Medication Management Medication Management No Deficits Identified Money Management Money Management No Deficits Identified Meal Preparation Meal Preparation No Deficits Identified 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 M6 OT- IP Functional Cognition Start: 12/07/23 16:04 Freq: Status: Active Protocol: Document 12/07/23 16:04 CGR (Rec: 12/07/23 16:19 CGR [id number]) Cognitive Factors Limiting Selfcare Function Cognitive Ability Level of Alertness Alert Patient Orientation Name,Age,Birthday,Month,Date, Year,Day of Week,Place, Situation Attention Span Ability Capable of Focused Attention, Capable of Sustained Attention OT- Vision and Hearing OT- Hearing Assessment OT- Hearing Assessment WFL OT- Vision Assessment Visual Acuity Glasses For Reading Visual Attentiveness WFL Occular Pursuits WFL Visual Convergence WFL M7 OT- IP Mobility and Balance Start: 12/07/23 16:04 Freq: Status: Active Protocol: Document 12/07/23 16:04 CGR (Rec: 12/07/23 16:19 CGR [id number]) OT- Bed Mobility Assessment Rolling Type of Rolling Roll to Right Level of Assistance Standby Assistance Supine to Sit Supine to Sit Assist Standby Assistance Scooting Scooting to Edge of Bed Standby Assistance OT-Transfer Assessment Sit to and From Stand Sit to and from Stand Minimal Assistance Transfers Transfer Ability Minimal Assistance Technique Transfer Destination Bed,Chair Transfer Technique Stand Step Pivot Devices Transfer Assistive Devices Gait Belt,Front Wheeled Walker Comments Mobility Comments Pt with limitations on distance based on knee pain. OT- Balance Assessment Sitting Balance and Reactions Static Sitting Balance Ability Normal Dynamic Sitting Balance Ability Normal M8 OT- IP Objective Assessments Start: 12/07/23 16:04 Freq: Status: Active Protocol: Document 12/07/23 16:04 CGR (Rec: 12/07/23 16:19 CGR [id number]) OT Gross Range of Motion Upper Extremity Range of Motion Assessment Within Functional Limits OT Strength Upper Extremity Strength Assessment Within Functional Limits Comments Strength Comments L hand 5/5 R hand 4+/5 B arms 5/5 B shlds 3/5 OT- Coordination Assessment Upper Extremity Finger to Nose Test Within Functional Limits Finger Tapping Test Within Functional Limits OT-Muscle Tone Assessment Muscle Tone WNL Yes OT Sensation Assessment Edema Edema Absent M9 OT- IP Assessment and Plan Start: 12/07/23 16:04 Freq: Status: Active Protocol: Document 12/07/23 16:04 CGR (Rec: 12/07/23 16:19 CGR [id number]) OT Summary Assessment and Plan Potential Rehabilitation Potential Good Analytic Complexity at Evaluation Moderate Summary OT Impairments Pain,Strength,Balance, Functional Mobility,Grooming, Dressing,Toileting,Bathing, Toilet Transfers,Shower Transfers,Activity Tolerance Progress Towards Goals Slow Progress due to Pain Assessment Summary Pt presents as a moderate complexity evaluation s/p admit for found down after 4 days after his recliner broke. Pt participates well with excellent effort but is limit by his knee pain. Pt will continue to benefit from therapies and recommend SNF at discharge. Goals Grooming Goal Independent Dressing Goal Independent Toileting Goal Independent Bathing Goal Independent Toilet Transfer Goal Independent Shower Transfer Goal Independent Days to Meet Goals 30 Frequency of Treatment Other frequency 5x week Treatment Plan OT Treatment Plan ADL Training,Functional Mobility,Patient/Family Education,Discharge Planning Other Treatment Recommendations and Next LB dressing with DME, ADLs Treatment Focus standing, shower Discharge Recommendations OT Discharge Recommendations SNF Rehab Transportation Needs at Discharge Wheelchair/Cabulance
--- NOTE | 2023-12-07 10:57 | DIET.PN1 ---
Dietary Progress Note Assessment: Pt w/ 100% po intakes. DFM reviewed for nutrition and protein composition. No further nutrition interventions needed. Ht: 175.26 cm Wt: 153 kg BMI: 53.4 UBW: Last BM: 12/02/23 (12/02/23 23:19) MNA: 8 Ranulfo Score: 15 Diet: 12/02/23 Breakfast Heart Healthy Diet Diet Modifications: Nutrition Percent Meal Consumed 100% 12/07/23 09:00 Percent Meal Consumed 100% 12/06/23 09:00 Labs: RBC 5.32 X10^6/uL (4.5-5.9) 12/07/23 05:13 Hgb 14.9 g/dL (13.5-17.5) 12/07/23 05:13 Hct 43.9 % (41-53) 12/07/23 05:13 Creatinine 1.19 mg/dL (0.66-1.25) 12/07/23 05:13 Lactate 1.3 mmol/L (0.7-2.1) 12/02/23 19:19 Electronically Signed by: Ayaka Conti 12/07/23 10:57 Clinical Dietitian [address] [address]
[2023-12-07] MEDS: cefTRIAXone 1,000 MG in SODIUM CHLORIDE 0.9% 100 ML 100 MG IV (11:20)
[2023-12-07] MEDS: polyethylene glycoL 3350 17 GM POWD.PACK PO ×2 (13:55→21:53)
--- NOTE | 2023-12-07 14:06 | PT.IPTN ---
Current Diagnoses Contusion of right shoulder, initial encounter (12/02/23) Physical Therapy Treatment Note M2 PT-IP Current Condition Start: 12/03/23 12:07 Freq: NEEDED Status: Active Protocol: Document 12/05/23 13:50 AB (Rec: 12/05/23 15:52 AB [id number]) Physical Therapy Current Condition Current Condition Evaluation Date 12/05/23 Treatment Diagnosis dehydration; R shoulder contusion; difficulty in walking Onset Date 12/02/23 M3 PT-IP Subjective Start: 12/03/23 12:07 Freq: NEEDED Status: Active Protocol: Document 12/07/23 13:45 MB (Rec: 12/07/23 14:05 MB [id number]) Subjective Physical Therapy Visit Type Type Treatment Note Visit Start Time 13:45 Visit Stop Time 13:55 Number of COUNTY CORONER Visits 0 Physical Therapy Visit Comments Patient Comments Pt reclined in chair upon arrival and agreeable to PT to stand up and take a few steps . Therapy Pain Assessment Pain When Pain Assessed During Mobility Pain Present Pain Present Pain Reported Location Bilateral Knee Intensity 10 M4 PT-IP Mobility and Gait Start: 12/03/23 12:07 Freq: NEEDED Status: Active Protocol: Document 12/07/23 13:45 MB (Rec: 12/07/23 14:05 MB [id number]) PT-Transfer Assessment Sit to and From Stand Sit to and from Stand Minimal Assistance,1 Person Assistance,Use of Upper Extremities Equipment Transfer Assistive Device Gait Belt,Front Wheeled Walker Orthotic/Prosthetic Devices or Brace: No Transfers Transfer Destination Chair Transfer Technique Stepping Transfer Ability Level of Assist Minimal Assistance,1 Person Assistance,Use of Upper Extremities Comments Mobility Comments Cues to push up from the bed and to reach back for the chair before sitting Gait Assessment Gait Gait Assistance Required: Minimum Assistance,1 Person Assist Distance (Feet) 4 Able to Maintain Weight Bearing Status Yes During Gait Assistive Devices Assistive Device Gait Belt,Front Wheeled Walker Orthotic/Prosthetic Devices or Brace: No Gait Deviations General Gait Pattern Antalgic,Decreased Stride Length,Decreased Feet Clearance,Step-to Gait,Wide Based Gait Factors Limiting Gait Function Factors Limiting Gait Function Decreased Activity Tolerance, Decreased Strength,Difficulty Following Directions,Limited Range of Motion,Pain,Poor Balance,Poor Safety Awareness Comments Gait Comments Severely antalgic steps and pt can only take a large step forward with each foot and a large step back with each leg today. Heavy UE support and severe pain in legs. PT-Balance Assessment Sitting Balance and Reactions Static Sitting Balance Ability Normal Dynamic Sitting Balance Ability Good Standing Balance and Reactions Static Standing Balance Ability Fair Dynamic Standing Balance Ability Fair Device Used FWW M5 PT-IP Objective Assessments Start: 12/03/23 12:07 Freq: NEEDED Status: Active Protocol: Document 12/05/23 13:50 AB (Rec: 12/05/23 15:52 AB [id number]) Orientation Orientation/Cognition Level of Alertness Alert Orientation Name,Place,Situation Language Function Ability No Deficits Noted Safety Awareness Decreased Safety Awareness Memory Description No Deficits Noted Strength Lower Extremity Strength Assessment Within Functional Limits Muscle Tone Muscle Tone WNL Yes M6 PT-IP Treatment Start: 12/03/23 12:07 Freq: NEEDED Status: Active Protocol: Document 12/05/23 13:50 AB (Rec: 12/05/23 15:52 AB [id number]) Physical Therapy Treatment Education Education Provided Safety M7 PT-IP Assessment and Plan Start: 12/03/23 12:07 Freq: NEEDED Status: Active Protocol: Document 12/07/23 13:45 MB (Rec: 12/07/23 14:05 MB [id number]) PT Summary Assessment and Plan Potential Rehabilitation Potential Fair Status of Condition at Evaluation Evolving Summary Impairments Pain,ROM,Strength,Balance, Coordination,Bed Mobility, Transfers,Gait,Activity Tolerance Progress Towards Goals Slow Progress due to Pain Assessment Summary Pt con't with severe pain that he reports is from severe degenerative changes in knees with WB and stepping today. This limits gait progression. Goals Bed Mobility Goal Independent Transfer Goal Standby Assistance,Front Wheeled Walker Gait Goal Standby Assistance,Front Wheel Walker Gait Distance 50 Other Goals up/down 3 steps L side bar SBA Days to Meet Goals 5 Frequency of Treatment Frequency Of Treatment Once a Day Treatment Plan Physical Therapy Treatment Plan Bed Mobility Training,Transfer Training,Gait Training, Therapeutic Exercise,Balance Retraining,Discharge Planning, Hot or Cold Pack,Neuromuscular Re-ed,Coordination Retraining ,Manual Therapy Precautions Other Precautions falls Recommendations To Nursing Amount of Assist Needed 1 Person Assist Discharge Recommendations PT Discharge Recommendations SNF Rehab Transportation Needs at Discharge Wheelchair/Cabulance
--- NOTE | 2023-12-07 14:47 | CM.DPC ---
DCP SNF Cont: Per MD, pt remains on IV-Abx and improving and likely stable for d/c to SNF by tomorrow . SW made following SNF referrals: [facility]- received referral but have not reviewed yet, unsure they will have a bed. [facility]- full on male beds but will review today. [facility]- faxed referral and left msg to review. [facility]- reviewing, considering as long as pt is in agreement not to smoke and they want to call pt's brother to confirm he has an ok discharge plan from their facility. [facility] completed but needs MD signature for exempted hospital discharge due to pt's depression at baseline. Plan: SW to follow closely with [facility] in the AM to confirm if they can accept pt vs maybe [facility]. Anabel Beth, HELPER TEACHER
--- NOTE | 2023-12-07 16:27 | PM.CN ---
History of Present Illness Consult details Date Patient Seen: 12/07/23 Time Patient Seen: 15:45 Chief complaint: Found Down x4 Days Narrative: The patient is a 58-year-old male with morbid obesity and lower extremity lymphedema who was admitted to the hospital December 02 after he fell and was reportedly on the ground for 4 days. Upon admission he was noted to have cellulitis of the right lower extremity with an open ulcer. Patient reports that the ulcer had been present for approximately 5 days prior to admission. The patient has a long history of severe lymphedema involving the right lower extremity with multiple recurrent ulcers that at times have profuse drainage. The current ulcer has had only minimal drainage. The wound was not cultured but blood cultures did grew Proteus vulgaris. The patient has been treated with bedrest, elevation, and IV antibiotic therapy and reports significant improvement. He reports that the ulcer is painful but it has been improving since admission. He has had significant diuresis and the lower extremity swelling is much improved. He has never been seen at the wound center in the past for his recurring ulcers. Meds Home Medications and Allergies Home Medications Medication Instructions Recorded Confirmed Type citalopram 20 mg tablet 20 mg PO DAILY #30 tabs 09/18/22 12/04/23 Rx gabapentin 100 mg capsule 100 mg PO TID #60 caps 09/18/22 12/04/23 Rx furosemide 20 mg tablet 20 mg PO DAILY 12/03/23 12/03/23 History spironolactone 25 mg tablet 25 mg PO DAILY 12/03/23 12/03/23 History Allergies Allergy/AdvReac Type Severity Reaction Status Date / Time No Known Drug Allergies Allergy Verified 07/20/23 15:40 Review of Systems Constitutional Comments: Generalized weakness Cardiovascular Comments: No chest pain Respiratory Comments: Shortness of breath Musculoskeletal Comments: Chronic lower extremity swelling, right greater than left Integumentary/Breasts Comments: Recurrent ulcers right lower extremity Exam Vital Signs (past 8 hours): - 12/07/23 12:00 12/07/23 16:00 Temperature 98.3 F 97.8 F Pulse Rate 87 93 H Respiratory Rate 12 16 Blood Pressure 167/116 H 134/82 Pulse Oximetry 95 93 Oxygen Flow Rate 2 1 Oxygen Delivery Method Room Air Oxygen Flow Rate 1 Const Other: Generally the patient is an obese male who is alert and oriented and in no apparent distress Resp Other: Unlabored respirations Skin Other: Ulcers lateral right lower extremity with good granulation tissue Extrem Other: Bilateral lower extremity lymphedema, right greater than left Objective Labs 12/07/23 05:13 12/07/23 05:13 Labs: Laboratory Results - last 24 hr 12/07/23 05:13 WBC 6.9 RBC 5.32 Hgb 14.9 Hct 43.9 MCV 82.5 MCH 28.0 MCHC 33.9 RDW 16.2 H Plt Count 467 H Neut % (Auto) 61.8 Lymph % (Auto) 23.4 L [place] % (Auto) 7.4 Eos % (Auto) 6.1 H Baso % (Auto) 1.3 Neut # (Auto) 4300 Lymph # (Auto) 1600 [place] # (Auto) 500 Eos # (Auto) 400 Baso # (Auto) 100 Sodium 137 Potassium 3.7 Chloride 92 L Carbon Dioxide 38 H BUN 25 H Creatinine 1.19 Estimated GFR > 60 BUN/Creatinine Ratio 21.0 Glucose 101 H Calcium 8.9 PFSH Medical History Opioid dependence in remission Morbid obesity with BMI of 45.0-49.9, adult Hypertension Lymphedema Cellulitis Social History household members: none Tobacco & Substance Use Smoking Status: Current every day smoker alcohol intake: former Additional Social History additional social history: On disability No current insurance divorce, loss of dog, deaths, depressed tobacco: wants to quit food: tries to eat healthy -- but likes burgers -- eats veggies, quit etoh -- a long time ago -- recently increased- 2-3 /week HISTORY OF OPIOID addiction for PAIN -- off now sig trouble with mobility and car is not working pt has had sig problems with blood pressure in the past -- stops medication 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 [facility] 09/2022 Assessment & Plan Assessment and plan (1) Lymphedema: Status: Acute (2) Non-pressure chronic ulcer of other part of right lower leg with fat layer exposed: Status: Acute Assessment & Plan narrative: The patient with recurring ulcers right lower extremity associated with severe lymphedema. Plan to start dressing changes with Xeroform gauze, leg elevation, compression with Tubigrip, follow up at wound center after discharge. We will need an arterial Doppler before more aggressive compression therapy can be initiated. We will make arrangements for referral for outpatient lymphedema therapy. Time-Based Coding :: [50 MINUTES] spent with patient and on the chart (including review of chart, obtaining history, exam, reviewing outside data, placing orders, documenting exam and treatment plan, and counseling patient) on [12/07/23].
[2023-12-08 01:00] VITALS: BP 155/101; PULSE 78; TEMP 36.9; O2SAT 94
[2023-12-08 04:00] VITALS: BP 150/102; PULSE 84; RESP 20; TEMP 36.9; O2SAT 94
[2023-12-08] MEDS: OXYCODONE/ACETAMINOPHEN 5/325 TABLET 1 TAB PO ×4 (04:05→21:08)
--- NOTE | 2023-12-08 06:00 | DI.US.S_ITS ---
PROCEDURE: US ARTERIAL DUPLEX LE BI INDICATIONS: Lymphedema, needs compression therapy TECHNIQUE: Color and pulse Doppler interrogation was performed of both lower extremity arterial systems, with image documentation. COMPARISON: None. FINDINGS: Right lower extremity: Common femoral artery: 91 cm/sec, with triphasic flow. Deep femoral artery: 45 cm/sec, with biphasic flow. Proximal superficial femoral artery: 110 cm/sec, with triphasic flow. Mid superficial femoral artery: 58 cm/sec, with triphasic flow. Distal superficial femoral artery: 48 cm/sec, with triphasic flow. Popliteal artery: 63 cm/sec, with triphasic flow. Posterior tibial artery: 79 cm/sec, with triphasic flow. Anterior tibial artery/dorsalis pedis: 34 cm/sec, with biphasic flow. Dalton-scale imaging description: Unremarkable Left lower extremity: Common femoral artery: 103 cm/sec, with atrophy is flow. Deep femoral artery: 34 cm/sec, with triphasic flow. Proximal superficial femoral artery: 73 cm/sec, with triphasic flow. Mid superficial femoral artery: 69 cm/sec, with triphasic flow. Distal superficial femoral artery: 57 cm/sec, with triphasic flow. Popliteal artery: 76 cm/sec, with triphasic flow. Posterior tibial artery: 79 cm/sec, with triphasic flow. Anterior tibial artery/dorsalis pedis: 43 cm/sec, with monophasic flow. Dalton-scale imaging description: Unremarkable IMPRESSION: Unremarkable duplex arterial ultrasound without evidence significant peripheral vascular disease Approved by: Sony Barrera M.D. on 12/08/2023 at 9:01
[2023-12-08] MEDS: FUROSEMIDE 40 MG/4 ML VIAL IV ×2 (06:07→15:29)
[2023-12-08 06:15] LABS: Hematocrit 44.6 % (41-53); Hemoglobin 14.9 g/dL (13.5-17.5); Mean Corpuscular HGB Conc 33.3 % (30-36); Mean Corpuscular Hemoglobin 27.8 PG (26-34); Mean Corpuscular Volume 83.5 fL (80-100); Platelet Count 430 X10^3/uL (150-400); Red Blood Cell Count 5.34 X10^6/uL (4.5-5.9); Red Cell Distribution Width 15.8 % (11.6-14.8); White Blood Cell Count 7.1 X10^3/uL (4.5-11.0)
[2023-12-08 06:44] LABS: BUN Creatinine Ratio 26.5 (6-22); Blood Urea Nitrogen 30 mg/dL (9-20); Calcium 8.9 mg/dL (8.4-10.2); Carbon Dioxide 38 mmol/L (22-32); Chloride 91 mmol/L (98-107); Estimated Glomerular Filt Rate > 60 mL/min (>60); Glucose 102 mg/dL (70-100); HEMOLYSIS < 15 (0-50); Potassium 3.5 mmol/L (3.4-5.1); Sodium 136 mmol/L (137-145)
[2023-12-08 08:00] VITALS: BP 127/92; PULSE 87; RESP 20; TEMP 36.8; O2SAT 93
[2023-12-08 09:03] VITALS: O2SAT 93
[2023-12-08] MEDS: GABAPENTIN 100 MG CAPSULE PO ×3 (09:35→21:08)
[2023-12-08] MEDS: CITALOPRAM 10 MG TABLET 20 MG PO (09:35)
[2023-12-08] MEDS: polyethylene glycoL 3350 17 GM POWD.PACK PO ×2 (09:36→21:08)
[2023-12-08] MEDS: AMLODIPINE 5 MG TABLET PO ×2 (09:36→19:03)
[2023-12-08] MEDS: ENOXAPARIN 40 MG/0.4 ML SYRINGE SUBCUT ×2 (09:36→21:08)
[2023-12-08] MEDS: SPIRONOLACTONE 25 MG TABLET PO (09:36)
[2023-12-08] MEDS: SODIUM CHLORIDE 0.9% FLUSH 10 ML IV (09:37)
[2023-12-08] MEDS: POTASSIUM CHLORIDE 20 MEQ TAB 40 MEQ PO (09:38)
[2023-12-08] MEDS: cefTRIAXone 1,000 MG in SODIUM CHLORIDE 0.9% 100 ML 100 MG IV (11:11)
--- NOTE | 2023-12-08 12:08 | OT.IP.TRT ---
Current Diagnoses Lymphedema, not elsewhere classified (12/02/23) Non-pressure chronic ulcer of other part of right lower leg with fat layer exposed (12/02/23) Contusion of right shoulder, initial encounter (12/02/23) Occupational Therapy Treatment Note M2 OT-IP Current Condition Start: 12/07/23 16:04 Freq: Status: Active Protocol: Document 12/07/23 16:04 CGR (Rec: 12/07/23 16:19 CGR [id number]) Occupational Therapy Current Condition Current Condition Evaluation Date 12/07/23 Treatment Diagnosis dehydration, found down after 4 days Diagnosis Onset Date 12/02/23 M3 OT- IP Subjective and Pain Start: 12/07/23 16:04 Freq: Status: Active Protocol: Document 12/08/23 12:09 [facility] (Rec: 12/08/23 12:20 CCC [id number]) OT- Subjective Occupational Therapy Visit Type Type Treatment Note Visit Start Time 11:30 Visit Stop Time 12:09 Occupational Therapy Visit Comments Patient Comments Pt agreed to get up to brush his teeth and go over LB dressing equipment. Patient/Caregiver Goals To get better. OT Pain Assessment Pain When Pain Assessed During Mobility Pain Present Pain Present Pain Reported Location Bilateral Knee Intensity 8 Scale Used Numeric (0 - 10) M4 OT- IP ADL's Start: 12/07/23 16:04 Freq: Status: Active Protocol: Document 12/08/23 12:09 CCC (Rec: 12/08/23 12:20 [facility] [id number]) OT [id number] Comments OT Self-Feeding Comments not meal time OT ADL-Grooming General Evaluation Grooming Ability Independent Comments OT Grooming Comments Able to do while standing at the sink with FWW. OT ADL-Oral Care General Eval Oral Care Ability Independent Areas of Assistance Brushing Teeth,Retrieving/Set- Up of Items Comments Oral Care Comments ABle to do while standing. OT ADL-Dressing General Eval Lower Body Dressing Ability Total Assistance Areas Needing Assistance Socks Comments OT Dressing Comments Pt states just wears Crocs. Able to use LB dressing equipment for LLE as pt's skin intact to able to tammy/doff his socks. Educated that pt to be careful when using LB dressing equipment not to scratch his skin as it is very fragile. Therefore use of logging truck driver to help tammy clothing for his RLE first and take out last. OT ADL-Toileting Comments OT Toileting Comments not performed OT ADL-Bathing Comments OT Bathing Comments Pt states able to shower earlier with nursing staff. M5 OT- IP IADL's Start: 12/07/23 16:04 Freq: Status: Active Protocol: Document 12/07/23 16:04 CGR (Rec: 12/07/23 16:19 CGR [id number]) OT-Instrumental Activities of Daily Living Deficits IADL Deficits Identified No Deficits Home Safety Awareness Awareness of Need for Assistance at Home Good Awareness Ability to Problem Solve Emergency Able to Problem Solve Situations Medication Management Medication Management No Deficits Identified Money Management Money Management No Deficits Identified Meal Preparation Meal Preparation No Deficits Identified [place]angel[place] Management Specialist Rangeland Management Specialist No Deficits Identified Driving Driving Comments Pt does not drive. M6 OT- IP Functional Cognition Start: 12/07/23 16:04 Freq: Status: Active Protocol: Document 12/08/23 12:09 [facility] (Rec: 12/08/23 12:20 [facility] [id number]) Cognitive Factors Limiting Selfcare Function Cognitive Comments Cognitive Assessment Comments Able to talked about stress management of setting smaller goals for himself to meet instead of larger goals which may deter and overwhelm him. M7 OT- IP Mobility and Balance Start: 12/07/23 16:04 Freq: Status: Active Protocol: Document 12/08/23 12:09 [facility] (Rec: 12/08/23 12:20 [facility] [id number]) OT-Transfer Assessment Sit to and From Stand Sit to and from Stand Minimal Assistance,Moderate Assistance Transfers Transfer Ability Minimal Assistance Technique Transfer Destination Chair Transfer Technique Stand Step Pivot Devices Transfer Assistive Devices Gait Belt,Front Wheeled Walker Comments Mobility Comments MIN/MODA to stand vc to scoot forwards to the edge of the recliner before standing to the bariatric FWW. Pt heavy use of his hands on the FWW. Educated to push the FWW forwards and then step with his RLE first. OT- Balance Assessment Sitting Balance and Reactions Static Sitting Balance Ability Normal Dynamic Sitting Balance Ability Normal Standing Balance and Reactions Static Standing Balance Ability Fair Dynamic Standing Balance Ability Fair M8 OT- IP Objective Assessments Start: 12/07/23 16:04 Freq: Status: Active Protocol: Document 12/07/23 16:04 CGR (Rec: 12/07/23 16:19 R [id number]) OT Gross Range of Motion Upper Extremity Range of Motion Assessment Within Functional Limits OT Strength Upper Extremity Strength Assessment Within Functional Limits Comments Strength Comments L hand 5/5 R hand 4+/5 B arms 5/5 B shlds 3/5 OT- Coordination Assessment Upper Extremity Finger to Nose Test Within Functional Limits Finger Tapping Test Within Functional Limits OT-Muscle Tone Assessment Muscle Tone WNL Yes OT Sensation Assessment Edema Edema Absent M9 OT- IP Assessment and Plan Start: 12/07/23 16:04 Freq: Status: Active Protocol: Document 12/08/23 12:09 [facility] (Rec: 12/08/23 12:20 [facility] [id number]) OT Summary Assessment and Plan Potential Rehabilitation Potential Good Analytic Complexity at Evaluation Moderate Summary OT Impairments Pain,Strength,Balance, Functional Mobility,Grooming, Dressing,Toileting,Bathing, Toilet Transfers,Shower Transfers,Activity Tolerance Progress Towards Goals Slow Progress due to Pain Assessment Summary Pt able to go over and try LB dressing equipment, talk about stress management and able to walk to the sink and back with the fww with LEE ANN to brush his teeth. Pt to go to skilled rehab when medically stable. Goals Grooming Goal Independent Dressing Goal Independent Toileting Goal Independent Bathing Goal Independent Toilet Transfer Goal Independent Shower Transfer Goal Independent Days to Meet Goals 29 Frequency of Treatment Other frequency 5x week Treatment Plan OT Treatment Plan ADL Training,Functional Mobility,Patient/Family Education,Discharge Planning Discharge Recommendations OT Discharge Recommendations SNF Rehab Transportation Needs at Discharge Wheelchair/Cabulance
--- NOTE | 2023-12-08 12:40 | PT.IPTN ---
Current Diagnoses Lymphedema, not elsewhere classified (12/02/23) Non-pressure chronic ulcer of other part of right lower leg with fat layer exposed (12/02/23) Contusion of right shoulder, initial encounter (12/02/23) Physical Therapy Treatment Note M2 PT-IP Current Condition Start: 12/03/23 12:07 Freq: NEEDED Status: Active Protocol: Document 12/05/23 13:50 AB (Rec: 12/05/23 15:52 AB [id number]) Physical Therapy Current Condition Current Condition Evaluation Date 12/05/23 Treatment Diagnosis dehydration; R shoulder contusion; difficulty in walking Onset Date 12/02/23 M3 PT-IP Subjective Start: 12/03/23 12:07 Freq: NEEDED Status: Active Protocol: Document 12/08/23 13:12 TS (Rec: 12/08/23 13:21 TS [id number]) Subjective Physical Therapy Visit Type Type Treatment Note Visit Start Time 12:40 Visit Stop Time 13:10 Number of ENTRY MANAGER Visits 1 Physical Therapy Visit Comments Patient Comments Pt found sitting in the chair, he is agreeable to PT. Therapy Pain Assessment Pain When Pain Assessed During Mobility Pain Present Pain Present Pain Reported M4 PT-IP Mobility and Gait Start: 12/03/23 12:07 Freq: NEEDED Status: Active Protocol: Document 12/08/23 13:12 TS (Rec: 12/08/23 13:21 TS [id number]) PT-Transfer Assessment Sit to and From Stand Sit to and from Stand Minimal Assistance,1 Person Assistance,Use of Upper Extremities Equipment Transfer Assistive Device Gait Belt,Front Wheeled Walker Orthotic/Prosthetic Devices or Brace: No Gait Assessment Gait Gait Assistance Required: Minimum Assistance,1 Person Assist Distance (Feet) 8 Able to Maintain Weight Bearing Status Yes During Gait Assistive Devices Assistive Device Gait Belt,Front Wheeled Walker Orthotic/Prosthetic Devices or Brace: No Gait Deviations General Gait Pattern Antalgic,Decreased Stride Length,Decreased Feet Clearance,Step-to Gait,Wide Based Gait Factors Limiting Gait Function Factors Limiting Gait Function Decreased Activity Tolerance, Decreased Strength,Difficulty Following Directions,Limited Range of Motion,Pain,Poor Balance,Poor Safety Awareness Comments Gait Comments Pt performs knee ext/flex sitting in the chair with BUE support. STS with FWW x4 Mau, pt provided cues for pushing form arms of chair. He ambulates ~8'Mau with FWW. Pt uses heavy UE support on FWW and has diffiuclty taking steps. Pt was left back in the chair, all needs met. PT-Balance Assessment Sitting Balance and Reactions Static Sitting Balance Ability Normal Dynamic Sitting Balance Ability Normal Standing Balance and Reactions Static Standing Balance Ability Fair Dynamic Standing Balance Ability Fair Device Used FWW M5 PT-IP Objective Assessments Start: 12/03/23 12:07 Freq: NEEDED Status: Active Protocol: Document 12/05/23 13:50 AB (Rec: 12/05/23 15:52 AB [id number]) Orientation Orientation/Cognition Level of Alertness Alert Orientation Name,Place,Situation Language Function Ability No Deficits Noted Safety Awareness Decreased Safety Awareness Memory Description No Deficits Noted Strength Lower Extremity Strength Assessment Within Functional Limits Muscle Tone Muscle Tone WNL Yes M6 PT-IP Treatment Start: 12/03/23 12:07 Freq: NEEDED Status: Active Protocol: Document 12/05/23 13:50 AB (Rec: 12/05/23 15:52 AB [id number]) Physical Therapy Treatment Education Education Provided Safety M7 PT-IP Assessment and Plan Start: 12/03/23 12:07 Freq: NEEDED Status: Active Protocol: Document 12/08/23 13:12 TS (Rec: 12/08/23 13:21 TS [id number]) PT Summary Assessment and Plan Potential Rehabilitation Potential Fair Summary Impairments Pain,ROM,Strength,Balance, Coordination,Bed Mobility, Transfers,Gait,Activity Tolerance Progress Towards Goals Slow Progress due to Pain Assessment Summary Jai is making slow progress with his mobility. He requires Mau for STS with use of FWW x4. He has poor tolerance to standing and gait . Pt ambulated ~8' Mau with FWW. He is unsteady with gait and has some buckling of knees . PT is recommending SNF at this time. Goals Bed Mobility Goal Independent Transfer Goal Standby Assistance,Front Wheeled Walker Gait Goal Standby Assistance,Front Wheel Walker Gait Distance 50 Other Goals up/down 3 steps L side bar SBA Days to Meet Goals 5 Frequency of Treatment Frequency Of Treatment Once a Day Treatment Plan Physical Therapy Treatment Plan Bed Mobility Training,Transfer Training,Gait Training, Therapeutic Exercise,Balance Retraining,Discharge Planning, Hot or Cold Pack,Neuromuscular Re-ed,Coordination Retraining ,Manual Therapy Precautions Other Precautions falls Recommendations To Nursing Amount of Assist Needed 1 Person Assist Discharge Recommendations PT Discharge Recommendations SNF Rehab Transportation Needs at Discharge Wheelchair/Cabulance
--- NOTE | 2023-12-08 12:57 | CM.DPC ---
Addendum entered and electronically signed by KARMA Bridges 12/08/23 13:07: [facility] called back and due to pt's brother's inability to provide care at d/c from SNF, they are now declining him. [facility]iam Singh declines. Jason is now reviewing. Original Note: Addendum entered and electronically signed by KARMA Bridges 12/08/23 12:58: Dr. Montalvo still working on d/c plan for antibiotics. Original Note: DCP Cont. Reviewed EMR and team rounds for status updates. Called and emailed Caitlin at [facility], provided her the info she was needing to determine time/date for acceptance. Due to it now being late in the day, this STATE [employer] OFFICER is anticipating d/c to their facility on Thu. Will monitor closely. Hospitalist updated.
--- NOTE | 2023-12-08 13:33 | PM.PN.1 ---
Subjective Subjective Interval history: We are waiting for nursing home facility acceptance. Subjective: His leg is improving. He was less edema and pain. There is less redness. He has been receiving ceftriaxone for Proteus cellulitis. Exam Vital Signs (past 8 hours): - 12/08/23 08:00 12/08/23 09:03 Temperature 98.2 F Pulse Rate 87 Respiratory Rate 20 Blood Pressure 127/92 H Pulse Oximetry 93 93 Oxygen Delivery Method Nasal Cannula Oxygen Flow Rate 2.5 2.5 Fraction of Inspired Oxygen 30 Fraction of Inspired Oxygen 30 SaO2/FiO2 Ratio 310 Oxygen Delivery Method Nasal Cannula Oxygen Flow Rate 2.5 Narrative Exam Narrative: NAD, alert and oriented. Fluent speech. Lungs are clear, normal rate and effort. Heart is regular, no murmur gallop or rub. Abdomen is soft, non distended. Extremities: Right leg is less swollen but still more edematous in the left. It was improved compared to yesterday. There is less pitting. The wound is wrapped. There is no warmth or redness above or below the dressing. Objective Labs 12/08/23 05:46 12/08/23 05:46 Labs: Laboratory Results - last 24 hr 12/08/23 05:46 WBC 7.1 RBC 5.34 Hgb 14.9 Hct 44.6 MCV 83.5 MCH 27.8 MCHC 33.3 RDW 15.8 H Plt Count 430 H Sodium 136 L Potassium 3.5 Chloride 91 L Carbon Dioxide 38 H BUN 30 H Creatinine 1.13 Estimated GFR > 60 BUN/Creatinine Ratio 26.5 H Glucose 102 H Calcium 8.9 Magnesium 2.0 PFSH Medical History Opioid dependence in remission Morbid obesity with BMI of 45.0-49.9, adult Hypertension Lymphedema Cellulitis Social History household members: none Smoking Status: Current every day smoker alcohol intake: former additional social history: On disability No current insurance divorce, loss of dog, deaths, depressed tobacco: wants to quit food: tries to eat healthy -- but likes burgers -- eats veggies, quit etoh -- a long time ago -- recently increased- 2-3 /week HISTORY OF OPIOID addiction for PAIN -- off now sig trouble with mobility and car is not working pt has had sig problems with blood pressure in the past -- stops medication 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 [facility] 09/2022 Assessment & Plan Assessment & Plan narrative: 1. Right lower extremity cellulitis, severe, culture positive for Proteus vulgaris. Continue ceftriaxone (Discontinued Vancomycin 12/06/2023). 2. Dehydration. Resolved. 3. Weakness and ground level fall due to 1. 4. Venous insufficiency. Continue furosemide 40 mg IV every 8 hours. 5. Hypertension. Improving. Continue to monitor. Continue amlodipine 5 mg daily started on 12/04/2023, home spironolactone 25 mg daily, along with IV diuresis. Consider additional antihypertensive therapy if needed, noting longstanding history of severe hypertension. 6. Depression. Restarted citalopram 20 mg daily on 12/05/2023. 7. Severe obesity. 8. DVT prophylaxis: Subcutaneous heparin PLAN: -continue antibiotics, Ceftriaxone. -looking for nursing home facility. -continue blood pressure medications. BP is relatively stable at 127/92. -[facility] his reviewing him. THANIA: 12/08 Time-Based Coding :: [TOTAL MINUTES] spent with patient and on the chart (including review of chart, obtaining history, exam, reviewing outside data, placing orders, documenting exam and treatment plan, and counseling patient) on [DATE].
[2023-12-08 18:00] VITALS: BP 164/98; PULSE 77; RESP 18; TEMP 36.8; O2SAT 93
[2023-12-08] MEDS: METOPROLOL IR 25 MG TABLET PO (19:03)
[2023-12-08 20:00] VITALS: BP 139/52; PULSE 77; RESP 16; TEMP 36.7; O2SAT 93
[2023-12-08] MEDS: ZOLPIDEM 5 MG TABLET PO (22:19)
[2023-12-08] MEDS: FUROSEMIDE 40 MG TABLET PO (22:20)
[2023-12-09] VITALS (10 sets, daily range): BP systolic 99–164; BP diastolic 68–103; PULSE 55–76; RESP 16–18; TEMP 36.5–36.8; O2SAT 90–100
--- NOTE | 2023-12-09 02:50 | PC.NURSE ---
Addendum entered by Tea Vazquez R.N. 12/09/23 03:09: Dressing changed: Curlex + ABD + gauze wrap + Tubi Addendum entered by Tea Vazquez R.N. 12/09/23 02:54: Lung sounds regular/clear BL (consulted Tomasa RN for confirmation), no complaints of chest pain, no SOB or accessory muscle use, no dizziness. VSWNL. Will continue to monitor. Original Note: NOC: While sleeping, pt experienced significant SpO2 desaturation, occasionally down to 77%. Upon awakening the patient, sats consistently return to 93-95%. Consulted RT for CPAP, patient was amenable. However, patient was unable to tolerate CPAP d/t mouth drying out. Repositioned more upright, increased O2 to 3L NC, however pt continued to desat after falling asleep. Consulted coordinator; changed NC to oxymask, pt SpO2 now holding at 94% on 2.5L. Care continues.
--- NOTE | 2023-12-09 03:18 | RT ---
0037 - pt removed CPAP mask stating mouth is drying out. He was placed on Oxymask. CPAP was used for a total of about 15 minutes.
[2023-12-09] MEDS: FUROSEMIDE 40 MG TABLET PO ×3 (05:32→21:51)
[2023-12-09 06:13] LABS: Hematocrit 45.6 % (41-53); Hemoglobin 15.1 g/dL (13.5-17.5); Mean Corpuscular Hemoglobin 27.8 PG (26-34); Platelet Count 431 X10^3/uL (150-400); Red Blood Cell Count 5.43 X10^6/uL (4.5-5.9); Red Cell Distribution Width 15.7 % (11.6-14.8); White Blood Cell Count 7.6 X10^3/uL (4.5-11.0)
[2023-12-09 06:42] LABS: BUN Creatinine Ratio 27.8 (6-22); Blood Urea Nitrogen 37 mg/dL (9-20); Calcium 9.2 mg/dL (8.4-10.2); Carbon Dioxide 36 mmol/L (22-32); Chloride 91 mmol/L (98-107); Estimated Glomerular Filt Rate > 60 mL/min (>60); Glucose 100 mg/dL (70-100); HEMOLYSIS < 15 (0-50); Potassium 3.8 mmol/L (3.4-5.1); Sodium 134 mmol/L (137-145)
--- NOTE | 2023-12-09 08:22 | CM.DPC ---
DCP Cont. Reviewed EMR and team rounds for status updates. [facility] has now declined as well. Sent a referral and clinicals to the [facility] for review. Pt will need 6-8 weeks of woundvac and possibly IV antibiotics, the ABO plan is pending. Will continue to follow closely.
[2023-12-09] MEDS: CITALOPRAM 10 MG TABLET 20 MG PO (09:58)
[2023-12-09] MEDS: SPIRONOLACTONE 25 MG TABLET PO (09:58)
[2023-12-09] MEDS: ENOXAPARIN 40 MG/0.4 ML SYRINGE SUBCUT ×2 (09:58→21:51)
[2023-12-09] MEDS: GABAPENTIN 100 MG CAPSULE PO ×3 (09:58→21:53)
[2023-12-09] MEDS: polyethylene glycoL 3350 17 GM POWD.PACK PO ×2 (09:58→21:52)
[2023-12-09] MEDS: NICOTINE 21 MG PATCH TOP (09:58)
[2023-12-09] MEDS: AMLODIPINE 5 MG TABLET PO (09:58)
[2023-12-09] MEDS: METOPROLOL IR 25 MG TABLET PO ×2 (09:58→21:53)
[2023-12-09] MEDS: OXYCODONE/ACETAMINOPHEN 5/325 TABLET 1 TAB PO ×2 (10:11→15:43)
--- NOTE | 2023-12-09 10:18 | PT.IPTN ---
Current Diagnoses Lymphedema, not elsewhere classified (12/02/23) Non-pressure chronic ulcer of other part of right lower leg with fat layer exposed (12/02/23) Contusion of right shoulder, initial encounter (12/02/23) Physical Therapy Treatment Note M2 PT-IP Current Condition Start: 12/03/23 12:07 Freq: NEEDED Status: Active Protocol: Document 12/05/23 13:50 AB (Rec: 12/05/23 15:52 AB [id number]) Physical Therapy Current Condition Current Condition Evaluation Date 12/05/23 Treatment Diagnosis dehydration; R shoulder contusion; difficulty in walking Onset Date 12/02/23 M3 PT-IP Subjective Start: 12/03/23 12:07 Freq: NEEDED Status: Active Protocol: Document 12/09/23 10:45 TS (Rec: 12/09/23 10:53 TS [id number]) Subjective Physical Therapy Visit Type Type Treatment Note Visit Start Time 10:18 Visit Stop Time 10:45 Number of PRECISION DYER Visits 2 Physical Therapy Visit Comments Patient Comments Pt found resting in bed, he is agreeable to PT. Therapy Pain Assessment Pain When Pain Assessed During Mobility Pain Present Pain Present Pain Reported M4 PT-IP Mobility and Gait Start: 12/03/23 12:07 Freq: NEEDED Status: Active Protocol: Document 12/09/23 10:45 TS (Rec: 12/09/23 10:53 TS [id number]) PT-Bed Mobility Assessment Supine to Sit Supine to Sit Standby Assistance,1 Person Assistance,Head of Bed Elevated,Bedrails Scooting Scooting to Edge of Bed Standby Assistance PT-Transfer Assessment Sit to and From Stand Sit to and from Stand Minimal Assistance,1 Person Assistance,Use of Upper Extremities Equipment Transfer Assistive Device Gait Belt,Front Wheeled Walker Comments Mobility Comments Supine to sit SBA with HOB elevated 60D. STS with FWW Sky, pt requires momentum to stand. He ambulates ~5 then sits in chair. He agreed to ambulate more. STS Sky with FWw. pt ambulates another 5' with heavy UE assist and slow step to gait. Pt was left in the chair, all needs met. Gait Assessment Gait Gait Assistance Required: Minimum Assistance,1 Person Assist Distance (Feet) 10 Able to Maintain Weight Bearing Status Yes During Gait Assistive Devices Assistive Device Gait Belt,Front Wheeled Walker Orthotic/Prosthetic Devices or Brace: No Gait Deviations General Gait Pattern Antalgic,Decreased Stride Length,Decreased Feet Clearance,Step-to Gait,Wide Based Gait Factors Limiting Gait Function Factors Limiting Gait Function Decreased Activity Tolerance, Decreased Strength,Difficulty Following Directions,Limited Range of Motion,Pain,Poor Balance,Poor Safety Awareness PT-Balance Assessment Sitting Balance and Reactions Static Sitting Balance Ability Normal Dynamic Sitting Balance Ability Normal Standing Balance and Reactions Static Standing Balance Ability Fair Dynamic Standing Balance Ability Fair Device Used FWW M5 PT-IP Objective Assessments Start: 12/03/23 12:07 Freq: NEEDED Status: Active Protocol: Document 12/05/23 13:50 AB (Rec: 12/05/23 15:52 AB [id number]) Orientation Orientation/Cognition Level of Alertness Alert Orientation Name,Place,Situation Language Function Ability No Deficits Noted Safety Awareness Decreased Safety Awareness Memory Description No Deficits Noted Strength Lower Extremity Strength Assessment Within Functional Limits Muscle Tone Muscle Tone WNL Yes M6 PT-IP Treatment Start: 12/03/23 12:07 Freq: NEEDED Status: Active Protocol: Document 12/05/23 13:50 AB (Rec: 12/05/23 15:52 AB [id number]) Physical Therapy Treatment Education Education Provided Safety M7 PT-IP Assessment and Plan Start: 12/03/23 12:07 Freq: NEEDED Status: Active Protocol: Document 12/09/23 10:45 TS (Rec: 12/09/23 10:53 TS [id number]) PT Summary Assessment and Plan Potential Rehabilitation Potential Fair Summary Progress Towards Goals Slow Progress due to Pain Assessment Summary Jai continues to make slow progress with his mobility. He continues to hav elow tolerance to gait and uses heavy UE assist. He requires resting breaks after ~5' of ambulation. PT continues to recommend SNF at this time. Goals Bed Mobility Goal Independent Transfer Goal Standby Assistance,Front Wheeled Walker Gait Goal Standby Assistance,Front Wheel Walker Gait Distance 50 Other Goals up/down 3 steps L side bar SBA Days to Meet Goals 5 Frequency of Treatment Frequency Of Treatment Once a Day Treatment Plan Physical Therapy Treatment Plan Bed Mobility Training,Transfer Training,Gait Training, Therapeutic Exercise,Balance Retraining,Discharge Planning, Hot or Cold Pack,Neuromuscular Re-ed,Coordination Retraining ,Manual Therapy Precautions Other Precautions falls Recommendations To Nursing Amount of Assist Needed 1 Person Assist Discharge Recommendations PT Discharge Recommendations SNF Rehab Transportation Needs at Discharge Wheelchair/Cabulance
--- NOTE | 2023-12-09 14:07 | OT.IPNOTE ---
Pt states just had a bowel movement and nursing was able to assist him and now too tired to do therapy.
--- NOTE | 2023-12-09 14:14 | CM.DPC ---
DCP Cont. Reviewed EMR and team rounds for status updates. FLOWER ARRANGER requested for [facility] to re-review for placement, since he does not need a bariatric bed. Pending response.
--- NOTE | 2023-12-09 14:24 | PM.PN.1 ---
Subjective Subjective Interval history: S: He was doing well today. He had a bowel movement. His leg is less edematous and painful. The redness has improved substantially. He denies any nausea, or dyspnea. Exam Vital Signs (past 8 hours): - 12/09/23 08:28 12/09/23 09:45 12/09/23 10:09 Temperature 97.9 F Pulse Rate 72 76 Respiratory Rate 18 Blood Pressure 164/103 H 159/85 H Pulse Oximetry 96 Oxygen Delivery Method Room Air 12/09/23 12:00 Temperature 98.1 F Pulse Rate 62 Respiratory Rate 18 Blood Pressure 123/98 H Pulse Oximetry 94 Oxygen Delivery Method Fraction of Inspired Oxygen 30 SaO2/FiO2 Ratio 310 Oxygen Delivery Method Room Air Oxygen Flow Rate 3.5 Narrative Exam Narrative: NAD, fluent speech. Lungs are clear with normal effort. Heart is regular, no murmur. Abdomen is non distended and non tender. Legs are less edematous. The right leg is wrapped in the erythema is mostly resolved. Objective Labs 12/09/23 05:41 12/09/23 05:41 Labs: Laboratory Results - last 24 hr 12/09/23 05:41 WBC 7.6 RBC 5.43 Hgb 15.1 Hct 45.6 MCV 84.0 MCH 27.8 MCHC 33.0 RDW 15.7 H Plt Count 431 H Sodium 134 L Potassium 3.8 Chloride 91 L Carbon Dioxide 36 H BUN 37 H Creatinine 1.33 H Estimated GFR > 60 BUN/Creatinine Ratio 27.8 H Glucose 100 Calcium 9.2 PFSH Medical History Opioid dependence in remission Morbid obesity with BMI of 45.0-49.9, adult Hypertension Lymphedema Cellulitis Social History household members: none Smoking Status: Current every day smoker alcohol intake: former additional social history: On disability No current insurance divorce, loss of dog, deaths, depressed tobacco: wants to quit food: tries to eat healthy -- but likes burgers -- eats veggies, quit etoh -- a long time ago -- recently increased- 2-3 /week HISTORY OF OPIOID addiction for PAIN -- off now sig trouble with mobility and car is not working pt has had sig problems with blood pressure in the past -- stops medication 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 [facility] 09/2022 Assessment & Plan Assessment & Plan narrative: 1. Right lower extremity cellulitis, severe, culture positive for Proteus vulgaris. Continue ceftriaxone (Discontinued Vancomycin 12/06/2023). 2. Dehydration. Resolved. 3. Weakness and ground level fall due to 1. 4. Venous insufficiency. Continue furosemide 40 mg IV every 8 hours. 5. Hypertension. Improving. Continue to monitor. Continue amlodipine 5 mg daily started on 12/04/2023, home spironolactone 25 mg daily, along with IV diuresis. Consider additional antihypertensive therapy if needed, noting longstanding history of severe hypertension. 6. Depression. Restarted citalopram 20 mg daily on 12/05/2023. 7. Severe obesity. 8. DVT prophylaxis: Subcutaneous heparin PLAN: -continue antibiotics, Ceftriaxone. Will convert to PO 12/09. -looking for senior living facility. [facility] reviewing. -continue blood pressure medications. -OOB, leg elevation. THANIA: 12/09 if we find an accepting senior living facility. He was medically stable for discharge. Time-Based Coding :: [TOTAL MINUTES] spent with patient and on the chart (including review of chart, obtaining history, exam, reviewing outside data, placing orders, documenting exam and treatment plan, and counseling patient) on [DATE].
[2023-12-09] MEDS: ZOLPIDEM 5 MG TABLET PO (21:51)
[2023-12-09] MEDS: ACETAMINOPHEN 325 MG TABLET 650 MG PO (21:51)
[2023-12-10] MEDS: HYDROCODONE/ACET 5/325 TABLET 1 TAB PO ×3 (01:29→14:39)
[2023-12-10 01:34] VITALS: BP 145/88; PULSE 73; RESP 19; TEMP 36.6; O2SAT 95
[2023-12-10] MEDS: FUROSEMIDE 40 MG TABLET PO (06:42)
--- NOTE | 2023-12-10 07:18 | PM.PN.1 ---
Subjective Subjective Interval history: S: He was doing well. His right leg feels better. It was less swollen and painful. IV antibiotics were stopped yesterday. Exam Vital Signs (past 8 hours): - 12/10/23 01:34 12/10/23 03:00 Temperature 97.9 F Pulse Rate 73 Respiratory Rate 19 Blood Pressure 145/88 H Pulse Oximetry 95 Oxygen Delivery Method Oximask Oxygen Flow Rate 2 Fraction of Inspired Oxygen 30 SaO2/FiO2 Ratio 310 Oxygen Delivery Method Oximask Oxygen Flow Rate 2 Narrative Exam Narrative: NAD, alert and oriented. Fluent speech. Lungs are clear, normal rate and effort. Heart is regular, no murmur gallop or rub. Abdomen is soft, non distended. Extremities: Right leg is less swollen and red, there is still a large ulceration which is oozing. Objective Labs 12/09/23 05:41 12/09/23 05:41 [facility] Medical History Opioid dependence in remission Morbid obesity with BMI of 45.0-49.9, adult Hypertension Lymphedema Cellulitis Social History household members: none Smoking Status: Current every day smoker alcohol intake: former additional social history: On disability No current insurance divorce, loss of dog, deaths, depressed tobacco: wants to quit food: tries to eat healthy -- but likes burgers -- eats veggies, quit etoh -- a long time ago -- recently increased- 2-3 /week HISTORY OF OPIOID addiction for PAIN -- off now sig trouble with mobility and car is not working pt has had sig problems with blood pressure in the past -- stops medication 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 [facility] 09/2022 Assessment & Plan Assessment & Plan narrative: 1. Right lower extremity cellulitis, severe, culture positive for Proteus vulgaris. We will start oral antibiotics as of December 09 and monitor. Continue right leg elevation. 2. Dehydration. Resolved. 3. Weakness and ground level fall due to 1. 4. Venous insufficiency. Continue furosemide 40 mg IV every 8 hours. 5. Hypertension. Improving. Continue to monitor. Continue amlodipine 5 mg daily started on 12/04/2023, home spironolactone 25 mg daily, along with IV diuresis. Consider additional antihypertensive therapy if needed, noting longstanding history of severe hypertension. 6. Depression. Restarted citalopram 20 mg daily on 12/05/2023. 7. Severe obesity. 8. DVT prophylaxis: Subcutaneous heparin PLAN: -Ceftriaxone finished 12/08. We will start oral antibiotics as of December 09 and monitor. Continue right leg elevation. Levofloxacin. -looking for detention facility. -continue blood pressure medications. -OOB, leg elevation. -Wound care. If we can not find an accepting detention facility he may need to return home to [facility] with home health. THANIA: Unclear. He was medically stable for discharge as of December 08. Time-Based Coding :: [TOTAL MINUTES] spent with patient and on the chart (including review of chart, obtaining history, exam, reviewing outside data, placing orders, documenting exam and treatment plan, and counseling patient) on [DATE].
[2023-12-10 08:00] VITALS: BP 122/80; PULSE 66; RESP 18; TEMP 36.3; O2SAT 97
[2023-12-10] MEDS: METOPROLOL IR 25 MG TABLET PO ×2 (08:17→20:05)
[2023-12-10] MEDS: GABAPENTIN 100 MG CAPSULE PO ×3 (08:18→20:04)
[2023-12-10] MEDS: CITALOPRAM 10 MG TABLET 20 MG PO (08:18)
[2023-12-10] MEDS: SPIRONOLACTONE 25 MG TABLET PO (08:18)
[2023-12-10] MEDS: AMLODIPINE 5 MG TABLET PO (08:18)
[2023-12-10] MEDS: NICOTINE 21 MG PATCH TOP (08:20)
[2023-12-10] MEDS: ENOXAPARIN 40 MG/0.4 ML SYRINGE SUBCUT ×2 (08:31→20:06)
--- NOTE | 2023-12-10 09:09 | PT.IPTN ---
Current Diagnoses Lymphedema, not elsewhere classified (12/02/23) Non-pressure chronic ulcer of other part of right lower leg with fat layer exposed (12/02/23) Contusion of right shoulder, initial encounter (12/02/23) Physical Therapy Treatment Note M2 PT-IP Current Condition Start: 12/03/23 12:07 Freq: NEEDED Status: Active Protocol: Document 12/05/23 13:50 AB (Rec: 12/05/23 15:52 AB [id number]) Physical Therapy Current Condition Current Condition Evaluation Date 12/05/23 Treatment Diagnosis dehydration; R shoulder contusion; difficulty in walking Onset Date 12/02/23 M3 PT-IP Subjective Start: 12/03/23 12:07 Freq: NEEDED Status: Active Protocol: Document 12/10/23 10:33 TS (Rec: 12/10/23 10:51 TS [id number]) Subjective Physical Therapy Visit Type Type Treatment Note Visit Start Time 09:09 Visit Stop Time 09:44 Number of PACKAGER HAND Visits 3 Physical Therapy Visit Comments Patient Comments Pt found up in the chair, he is agreeable to PT. Therapy Pain Assessment Pain When Pain Assessed During Mobility Pain Present Pain Present Pain Reported M4 PT-IP Mobility and Gait Start: 12/03/23 12:07 Freq: NEEDED Status: Active Protocol: Document 12/10/23 10:33 TS (Rec: 12/10/23 10:51 TS [id number]) PT-Transfer Assessment Sit to and From Stand Sit to and from Stand Moderate Assistance,1 Person Assistance,Use of Upper Extremities Equipment Transfer Assistive Device Gait Belt,Front Wheeled Walker Orthotic/Prosthetic Devices or Brace: No Comments Mobility Comments STS from the chair ModA with use of FWW. Pt ambulates ~15' with slow step to gait and heavy UE assist on FWW, pt c/o increasing pain in B knees. Pt stood at sink Sky for brushing of teeth. He ambualtes back to the chair, all needs met. Gait Assessment Gait Gait Assistance Required: Minimum Assistance,1 Person Assist Distance (Feet) 15 Able to Maintain Weight Bearing Status Yes During Gait Assistive Devices Assistive Device Gait Belt,Front Wheeled Walker Orthotic/Prosthetic Devices or Brace: No Gait Deviations General Gait Pattern Antalgic,Decreased Stride Length,Decreased Feet Clearance,Step-to Gait,Wide Based Gait Factors Limiting Gait Function Factors Limiting Gait Function Decreased Activity Tolerance, Decreased Strength,Difficulty Following Directions,Limited Range of Motion,Pain,Poor Balance,Poor Safety Awareness Comments Gait Comments slow and difficult with ambulation due to pain in B knees. PT-Balance Assessment Sitting Balance and Reactions Static Sitting Balance Ability Normal Dynamic Sitting Balance Ability Normal Standing Balance and Reactions Static Standing Balance Ability Fair Dynamic Standing Balance Ability Fair Device Used FWW M5 PT-IP Objective Assessments Start: 12/03/23 12:07 Freq: NEEDED Status: Active Protocol: Document 12/05/23 13:50 AB (Rec: 12/05/23 15:52 AB [id number]) Orientation Orientation/Cognition Level of Alertness Alert Orientation Name,Place,Situation Language Function Ability No Deficits Noted Safety Awareness Decreased Safety Awareness Memory Description No Deficits Noted Strength Lower Extremity Strength Assessment Within Functional Limits Muscle Tone Muscle Tone WNL Yes M6 PT-IP Treatment Start: 12/03/23 12:07 Freq: NEEDED Status: Active Protocol: Document 12/05/23 13:50 AB (Rec: 12/05/23 15:52 AB [id number]) Physical Therapy Treatment Education Education Provided Safety M7 PT-IP Assessment and Plan Start: 12/03/23 12:07 Freq: NEEDED Status: Active Protocol: Document 12/10/23 10:33 TS (Rec: 12/10/23 10:51 TS [id number]) PT Summary Assessment and Plan Potential Rehabilitation Potential Fair Summary Progress Towards Goals Slow Progress due to Pain Assessment Summary Jose continues to have difficulty with his mobility. He is ModA for STS x2 with use of FWW. He ambulates short distances in the room with difficulty. PT will continue to recommend SNF at this time. Goals Bed Mobility Goal Independent Transfer Goal Standby Assistance,Front Wheeled Walker Gait Goal Standby Assistance,Front Wheel Walker Gait Distance 50 Other Goals up/down 3 steps L side bar SBA Days to Meet Goals 5 Frequency of Treatment Frequency Of Treatment Once a Day Treatment Plan Physical Therapy Treatment Plan Bed Mobility Training,Transfer Training,Gait Training, Therapeutic Exercise,Balance Retraining,Discharge Planning, Hot or Cold Pack,Neuromuscular Re-ed,Coordination Retraining ,Manual Therapy Precautions Other Precautions falls Recommendations To Nursing Amount of Assist Needed 1 Person Assist Discharge Recommendations PT Discharge Recommendations SNF Rehab Transportation Needs at Discharge Wheelchair/Cabulance
[2023-12-10 12:00] VITALS: BP 148/96; PULSE 63; RESP 18; TEMP 36.6; O2SAT 96
[2023-12-10] MEDS: LORazepam 0.5 MG TABLET PO (17:04)
[2023-12-10] MEDS: FUROSEMIDE 40 MG TABLET 60 MG PO (17:04)
[2023-12-10 18:00] VITALS: BP 169/98; PULSE 66; RESP 15; TEMP 36.4; O2SAT 99
[2023-12-10] MEDS: ZOLPIDEM 5 MG TABLET PO (20:04)
[2023-12-10] MEDS: CEFDINIR 300 MG CAPSULE PO (20:05)
[2023-12-10] MEDS: OXYCODONE/ACETAMINOPHEN 5/325 TABLET 1 TAB PO (20:05)
[2023-12-10] MEDS: polyethylene glycoL 3350 17 GM POWD.PACK PO (20:06)
[2023-12-10 20:53] VITALS: BP 118/82; PULSE 71; RESP 24; TEMP 36.6; O2SAT 89
[2023-12-10 22:53] VITALS: O2SAT 93
[2023-12-11] VITALS (8 sets, daily range): BP systolic 125–154; BP diastolic 78–108; PULSE 62–74; RESP 16–22; TEMP 36.6–37.7; O2SAT 89–96
[2023-12-11] MEDS: OXYCODONE/ACETAMINOPHEN 5/325 TABLET 1 TAB PO ×5 (03:26→22:35)
[2023-12-11] MEDS: LORazepam 0.5 MG TABLET PO (03:27)
[2023-12-11] MEDS: FUROSEMIDE 40 MG TABLET 60 MG PO ×2 (06:55→18:40)
[2023-12-11] MEDS: polyethylene glycoL 3350 17 GM POWD.PACK PO ×2 (08:17→21:12)
[2023-12-11] MEDS: CITALOPRAM 10 MG TABLET 40 MG PO (08:17)
[2023-12-11] MEDS: NICOTINE 21 MG PATCH TOP (08:18)
[2023-12-11] MEDS: GABAPENTIN 100 MG CAPSULE PO ×3 (08:19→21:12)
[2023-12-11] MEDS: ENOXAPARIN 40 MG/0.4 ML SYRINGE SUBCUT ×2 (08:19→21:12)
[2023-12-11] MEDS: CEFDINIR 300 MG CAPSULE PO ×2 (08:19→21:12)
[2023-12-11] MEDS: SPIRONOLACTONE 25 MG TABLET PO (08:19)
[2023-12-11] MEDS: AMLODIPINE 5 MG TABLET PO (08:20)
[2023-12-11] MEDS: METOPROLOL IR 25 MG TABLET PO ×2 (08:20→21:12)
--- NOTE | 2023-12-11 09:00 | PT.IPTN ---
Current Diagnoses Lymphedema, not elsewhere classified (12/02/23) Non-pressure chronic ulcer of other part of right lower leg with fat layer exposed (12/02/23) Contusion of right shoulder, initial encounter (12/02/23) Physical Therapy Treatment Note M2 PT-IP Current Condition Start: 12/03/23 12:07 Freq: NEEDED Status: Active Protocol: Document 12/05/23 13:50 AB (Rec: 12/05/23 15:52 AB [id number]) Physical Therapy Current Condition Current Condition Evaluation Date 12/05/23 Treatment Diagnosis dehydration; R shoulder contusion; difficulty in walking Onset Date 12/02/23 M3 PT-IP Subjective Start: 12/03/23 12:07 Freq: NEEDED Status: Active Protocol: Document 12/11/23 09:21 TS (Rec: 12/11/23 09:28 TS [id number]) Subjective Physical Therapy Visit Type Type Treatment Note Visit Start Time 09:00 Visit Stop Time 09:21 Number of DISTRICT WIRE CHIEF Visits 4 Physical Therapy Visit Comments Patient Comments Pt reports he has no where to go after hospital stay. His brother will not let him back on his property. Pt is agreeable to PT. Therapy Pain Assessment Pain When Pain Assessed During Mobility Pain Present Pain Present Pain Reported M4 PT-IP Mobility and Gait Start: 12/03/23 12:07 Freq: NEEDED Status: Active Protocol: Document 12/11/23 09:21 TS (Rec: 12/11/23 09:28 TS [id number]) PT-Transfer Assessment Sit to and From Stand Sit to and from Stand Minimal Assistance,Moderate Assistance,1 Person Assistance ,Use of Upper Extremities Equipment Transfer Assistive Device Gait Belt,Front Wheeled Walker Orthotic/Prosthetic Devices or Brace: No Comments Mobility Comments STS from the chair ModA with FWW, pt uses momentum to stand . He ambualtes ~10' before requiring to sit down on bed. STS with FWW from the bed Sky with FWW. He mabulates bakc ot the chair with a slow gait and heavy use of UE's on FWW. Pt was left in the chair, all needs met. Gait Assessment Gait Gait Assistance Required: Minimum Assistance,1 Person Assist Distance (Feet) 20 Assistive Devices Assistive Device Gait Belt,Front Wheeled Walker Orthotic/Prosthetic Devices or Brace: No Gait Deviations General Gait Pattern Antalgic,Decreased Stride Length,Decreased Feet Clearance,Step-to Gait,Wide Based Gait Factors Limiting Gait Function Factors Limiting Gait Function Decreased Activity Tolerance, Decreased Strength,Difficulty Following Directions,Limited Range of Motion,Pain,Poor Balance,Poor Safety Awareness Comments Gait Comments slow and difficult with ambulation due to pain in B knees. PT-Balance Assessment Sitting Balance and Reactions Static Sitting Balance Ability Normal Dynamic Sitting Balance Ability Good Standing Balance and Reactions Static Standing Balance Ability Fair Dynamic Standing Balance Ability Fair Device Used FWW M5 PT-IP Objective Assessments Start: 12/03/23 12:07 Freq: NEEDED Status: Active Protocol: Document 12/05/23 13:50 AB (Rec: 12/05/23 15:52 AB [id number]) Orientation Orientation/Cognition Level of Alertness Alert Orientation Name,Place,Situation Language Function Ability No Deficits Noted Safety Awareness Decreased Safety Awareness Memory Description No Deficits Noted Strength Lower Extremity Strength Assessment Within Functional Limits Muscle Tone Muscle Tone WNL Yes M6 PT-IP Treatment Start: 12/03/23 12:07 Freq: NEEDED Status: Active Protocol: Document 12/05/23 13:50 AB (Rec: 12/05/23 15:52 AB [id number]) Physical Therapy Treatment Education Education Provided Safety M7 PT-IP Assessment and Plan Start: 12/03/23 12:07 Freq: NEEDED Status: Active Protocol: Document 12/11/23 09:21 TS (Rec: 12/11/23 09:28 TS [id number]) PT Summary Assessment and Plan Potential Rehabilitation Potential Fair Summary Progress Towards Goals Slow Progress due to Pain Assessment Summary Jose continues to make slow progress with his mobility. He continues to ambulate short distances in the room with FWW. Pt c/o bilaterla knee pain being his biggest limiting factor. Goals Bed Mobility Goal Independent Transfer Goal Standby Assistance,Front Wheeled Walker Gait Goal Standby Assistance,Front Wheel Walker Gait Distance 50 Other Goals up/down 3 steps L side bar SBA Days to Meet Goals 5 Frequency of Treatment Frequency Of Treatment Once a Day Treatment Plan Physical Therapy Treatment Plan Bed Mobility Training,Transfer Training,Gait Training, Therapeutic Exercise,Balance Retraining,Discharge Planning, Hot or Cold Pack,Neuromuscular Re-ed,Coordination Retraining ,Manual Therapy Precautions Other Precautions falls Recommendations To Nursing Amount of Assist Needed 1 Person Assist Discharge Recommendations PT Discharge Recommendations SNF Rehab Transportation Needs at Discharge Wheelchair/Cabulance
--- NOTE | 2023-12-11 11:00 | PM.PN.1 ---
Subjective Subjective Interval history: The patient was admitted with a leg cellulitis and edema. He was living on a trailer at his brother's residence on [address]. His brother is declining to have him come back. Exhaustive search for [place] [facility] facility led to no acceptance. Social work is working on placement. Subjective: The right leg is much less swollen and painful. He was having wound care and was converted from IV to oral antibiotics on 12/09. No dyspnea. Exam Vital Signs (past 8 hours): - 12/11/23 06:00 12/11/23 07:27 12/11/23 07:52 Temperature 98 F 98.0 F Pulse Rate 70 63 Respiratory Rate 18 18 Blood Pressure 149/108 H 148/93 H Pulse Oximetry 96 96 94 Oxygen Delivery Method Oximask Oxygen Flow Rate 2.5 2.5 Fraction of Inspired Oxygen 30 SaO2/FiO2 Ratio 316 Oxygen Delivery Method Oximask Oxygen Flow Rate 2.5 Narrative Exam Narrative: NAD, alert and oriented. Fluent speech. Lungs are clear, normal rate and effort. Heart is regular, no murmur gallop or rub. Abdomen is soft, non distended. Extremities: Right leg is less swollen. It has chronic purplish discoloration. Objective Labs 12/09/23 05:41 12/09/23 05:41 ON LICENSE OF [facility] Medical History Opioid dependence in remission Morbid obesity with BMI of 45.0-49.9, adult Hypertension Lymphedema Cellulitis Social History household members: none Smoking Status: Current every day smoker alcohol intake: former additional social history: On disability No current insurance divorce, loss of dog, deaths, depressed tobacco: wants to quit food: tries to eat healthy -- but likes burgers -- eats veggies, quit etoh -- a long time ago -- recently increased- 2-3 /week HISTORY OF OPIOID addiction for PAIN -- off now sig trouble with mobility and car is not working pt has had sig problems with blood pressure in the past -- stops medication 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 Assessment & Plan Assessment & Plan narrative: 1. Right lower extremity cellulitis, severe, culture positive for Proteus vulgaris. We will start oral antibiotics as of December 09 and monitor. Continue right leg elevation. 2. Dehydration. Resolved. 3. Weakness and ground level fall due to 1. 4. Venous insufficiency. Continue furosemide 40 mg IV every 8 hours. 5. Hypertension. Improving. Continue to monitor. Continue amlodipine 5 mg daily started on 12/04/2023, home spironolactone 25 mg daily, along with IV diuresis. Consider additional antihypertensive therapy if needed, noting longstanding history of severe hypertension. 6. Depression. Restarted citalopram 20 mg daily on 12/05/2023. 7. Severe obesity. Work is working on placement. 8. DVT prophylaxis: Subcutaneous heparin PLAN -continue oral antibiotics for another 5 or 6 days. -leg elevation and wound care -social work is going to begin steps towards placement. -antidepressant dose was increased on 12/09. Full resuscitation Dispo: Placement pending. Likely long-term care. THANIA: Unclear Time-Based Coding :: [TOTAL MINUTES] spent with patient and on the chart (including review of chart, obtaining history, exam, reviewing outside data, placing orders, documenting exam and treatment plan, and counseling patient) on [DATE].
--- NOTE | 2023-12-11 12:03 | DIET.PN1 ---
Dietary Progress Note Assessment: Pt continues to consume 100% PO intakes. DFM reviewed for meal composition. Will continue to monitor and f/u in 5-7 days. Ht: 175.26 cm Wt: 155 kg BMI: 53.4 UBW: Last BM: 12/08/23 (12/08/23 14:59) MNA: 8 Ranulfo Score: 20 Diet: 12/02/23 Breakfast Heart Healthy Diet Diet Modifications: Nutrition Percent Meal Consumed 100% 12/09/23 18:00 Percent Meal Consumed 100% 12/09/23 13:02 Labs: RBC 5.43 X10^6/uL (4.5-5.9) 12/09/23 05:41 Hgb 15.1 g/dL (13.5-17.5) 12/09/23 05:41 Hct 45.6 % (41-53) 12/09/23 05:41 Creatinine 1.33 mg/dL (0.66-1.25) H 12/09/23 05:41 Lactate 1.3 mmol/L (0.7-2.1) 12/02/23 19:19 Electronically Signed by: Ayaka Conti 12/11/23 12:03 Clinical Dietitian [address] [address]
--- NOTE | 2023-12-11 12:58 | OT.IPNOTE ---
Per CM noted have exhausted SNF search and pt's brother declining to take pt back. Pt continues to need one person assist for needs, especially for completeness for toileting, assist for bathing needs and LB dressing needs. Nursing is able to assist pt for ADL needs and discharge pt from OT services. CM, hospitalist, and nursing notified.
--- NOTE | 2023-12-11 15:34 | CM.DANOTE ---
DCP Continued: DCP completed worklist CM Assessment to update pt's chart. Pt was admitted on 12/02/2023. Pt's Primary Care Provider is Dr. Neelam Doss and insurance is Medicare and Medicaid. Reviewed chart and discussed pt in team rounds. DCP sent [facility] referral due to previous CM plans but it was reported that pt is no longer welcomed at his brother's property on [address] and is currently houseless. DCP cancelled [facility] referral. DCP entered room, introduced self and role. DCP discussed new discharge plans of LTC Medicaid application, Home and Community Services assessment with hopes of correction care placement. Pt agreeable to plan, stated he did not have a preference for location. DCP completed LTC Medicaid application with pt, pt confirmed he has no property and only receives his $1500.00 check from [facility] every month. DCP discussed an advanced directive with patient, reviewed the [employer] pamphlet and advanced directive form with pt - pt requested to review independently and assistance with it from CM the following day. DCP left blank template for advanced directive and pen for pt to review and complete. DCP faxed LTC Medicaid application with Home and Community Services intake form. As a mandated entertainment reporter per [facility] [phone], I have given confidential information about the patient to Adult Protective Services intake team for self-neglect of a vulnerable adult. Intake #[id number]. Plan: LTC placement with HS to continue, CM team to connect with [facility] hospital assessment team when cyber crime investigator assigned. Patient to stay in hospital until safe placement identified. FARZANA Dooley Discharge Planning/Care Management CM Discharge Assessment Start: 12/11/23 15:32 Freq: Status: Active Protocol: Document 12/11/23 15:32 MW (Rec: 12/11/23 15:34 MW [id number]) Discharge Planning Assessment Assigned X Ray Technician KARMA Milner/Assigned Designee Name Brother Franco Contact Information [phone] Advance Directives? No History Provided By Patient,Medical Record Has Patient been admitted in last 30 No days? Prior Living Arrangements Mobile home Comment [facility] on brother's property Household Members family Is patient alert and oriented? Yes Caregiver for Another No Discharge Plan Adult Family Home Referrals Initiated Medicaid Application Whiteboard Updated in Patient Room with Yes name and ext. # of X Ray Technician Comment [phone] Review Status In Process Please Provide Date Initial DC 12/11/23 Assessment Was Performed Next Review Type Continued Stay Review
--- NOTE | 2023-12-11 18:53 | PC.NURSE ---
Rt leg wound dressing changed. Old dressing removed. Half saturated with yellow drainage. Area cleansed with saline. Has large open wound to the back of the calf. Non adherent foam applied and gauze. Wrapped with coban to keep in place. Pt reports it is not to tight. Wiggles toes and pedal pulse present. Pt reports decreased sensation to the leg but other spots he reports as being very sensative to touch. He has seen someone from the wound clinic. They report he is a candidate for care there. Pt was also reporting his pain medication wasn't lasting 6 hrs. increased it. He reports better pain control now.
[2023-12-11] MEDS: NYSTATIN POWDER 15GM 1 APPLIC TOP (22:33)
[2023-12-12] VITALS: BP 152/73; PULSE 71; RESP 14; TEMP 36.6; O2SAT 91
[2023-12-12] MEDS: OXYCODONE/ACETAMINOPHEN 5/325 TABLET 1 TAB PO ×4 (03:18→18:36)
[2023-12-12 06:09] VITALS: BP 167/97; PULSE 68; RESP 18; TEMP 36.4; O2SAT 92
[2023-12-12] MEDS: FUROSEMIDE 40 MG TABLET 60 MG PO ×2 (07:01→18:36)
[2023-12-12] MEDS: polyethylene glycoL 3350 17 GM POWD.PACK PO ×2 (08:45→20:54)
[2023-12-12] MEDS: NICOTINE 21 MG PATCH TOP (08:45)
[2023-12-12] MEDS: CITALOPRAM 10 MG TABLET 40 MG PO (08:45)
[2023-12-12] MEDS: ENOXAPARIN 40 MG/0.4 ML SYRINGE SUBCUT ×2 (08:46→20:54)
[2023-12-12] MEDS: GABAPENTIN 100 MG CAPSULE PO ×3 (08:47→20:55)
[2023-12-12] MEDS: AMLODIPINE 5 MG TABLET PO (08:47)
[2023-12-12] MEDS: SPIRONOLACTONE 25 MG TABLET PO (08:47)
[2023-12-12] MEDS: METOPROLOL IR 25 MG TABLET PO ×2 (08:47→20:55)
[2023-12-12] MEDS: CEFDINIR 300 MG CAPSULE PO ×2 (10:00→20:54)
[2023-12-12 13:10] VITALS: BP 137/82; PULSE 64; RESP 16; TEMP 36.4; O2SAT 97
--- NOTE | 2023-12-12 13:59 | P.PN_ITS ---
Subjective Subjective Interval history: The patient was admitted with a leg cellulitis and edema. He was living on a trailer at his brother's residence on [facility]. His brother is declining to have him come back. Exhaustive search for residential facility led to no acceptance. Social work is working on placement. Subjective: The right leg is much less swollen and painful. He was having wound care and was converted from IV to oral antibiotics on 12/09. No dyspnea. Exam Vital Signs (past 8 hours): - 12/12/23 06:09 12/12/23 07:30 12/12/23 13:10 Temperature 97.5 F L 97.5 F L Pulse Rate 68 64 Respiratory Rate 18 16 Blood Pressure 167/97 H 137/82 Pulse Oximetry 92 97 Oxygen Delivery Method Room Air Oxygen Flow Rate 0 Fraction of Inspired Oxygen 30 SaO2/FiO2 Ratio 316 Oxygen Delivery Method Room Air Oxygen Flow Rate 0 Narrative Exam Narrative: NAD, alert and oriented. Fluent speech. Lungs are clear, normal rate and effort. Heart is regular, no murmur gallop or rub. Abdomen is soft, non distended. Extremities: Right leg is less swollen. It has chronic purplish discoloration. Objective Labs 12/09/23 05:41 12/09/23 05:41 [facility] Medical History Opioid dependence in remission Morbid obesity with BMI of 45.0-49.9, adult Hypertension Lymphedema Cellulitis Social History household members: family Smoking Status: Current every day smoker alcohol intake: former additional social history: On disability No current insurance divorce, loss of dog, deaths, depressed tobacco: wants to quit food: tries to eat healthy -- but likes burgers -- eats veggies, quit etoh -- a long time ago -- recently increased- 2-3 /week HISTORY OF OPIOID addiction for PAIN -- off now sig trouble with mobility and car is not working pt has had sig problems with blood pressure in the past -- stops medication 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 [facility] 09/2022 Assessment & Plan Assessment & Plan narrative: 1. Right lower extremity cellulitis, severe, culture positive for Proteus vulgaris. We will start oral antibiotics as of December 09 and monitor. Continue right leg elevation. Will add stop date of 12/16 for antibiotics. 2. Dehydration. Resolved. 3. Weakness and ground level fall due to 1. 4. Venous insufficiency. Continue furosemide 40 mg IV every 8 hours. 5. Hypertension. Improving. Continue to monitor. Continue amlodipine 5 mg daily started on 12/04/2023, home spironolactone 25 mg daily, along with IV diuresis. Consider additional antihypertensive therapy if needed, noting longstanding history of severe hypertension. 6. Depression. Restarted citalopram 20 mg daily on 12/05/2023. 7. Severe obesity. Work is working on placement. 8. DVT prophylaxis: Subcutaneous heparin PLAN -continue oral antibiotics until 12/16 -leg elevation and wound care -social work is going to begin steps towards placement. -antidepressant dose was increased on 12/09. Full resuscitation Dispo: Placement pending. Likely long-term care. THANIA: Unclear Time-Based Coding :: [TOTAL MINUTES] spent with patient and on the chart (including review of chart, obtaining history, exam, reviewing outside data, placing orders, documenting exam and treatment plan, and counseling patient) on [DATE].
--- NOTE | 2023-12-12 14:10 | PT.IPTN ---
Current Diagnoses Lymphedema, not elsewhere classified (12/02/23) Non-pressure chronic ulcer of other part of right lower leg with fat layer exposed (12/02/23) Contusion of right shoulder, initial encounter (12/02/23) Physical Therapy Treatment Note M2 PT-IP Current Condition Start: 12/03/23 12:07 Freq: NEEDED Status: Active Protocol: Document 12/05/23 13:50 AB (Rec: 12/05/23 15:52 AB [id number]) Physical Therapy Current Condition Current Condition Evaluation Date 12/05/23 Treatment Diagnosis dehydration; R shoulder contusion; difficulty in walking Onset Date 12/02/23 M3 PT-IP Subjective Start: 12/03/23 12:07 Freq: NEEDED Status: Active Protocol: Document 12/12/23 14:10 AB (Rec: 12/12/23 17:38 AB [id number]) Subjective Physical Therapy Visit Type Type Treatment Note Visit Start Time 14:10 Visit Stop Time 14:31 Number of CELERY WRAPPER Visits 0 Physical Therapy Visit Comments Patient Comments agreeable to do PT Therapy Pain Assessment Pain When Pain Assessed During Mobility Location Bilateral Knee Scale Used pain scale not stated M4 PT-IP Mobility and Gait Start: 12/03/23 12:07 Freq: NEEDED Status: Active Protocol: Document 12/12/23 14:10 AB (Rec: 12/12/23 17:38 AB [id number]) PT-Transfer Assessment Sit to and From Stand Sit to and from Stand Minimal Assistance,1 Person Assistance,Use of Upper Extremities Equipment Transfer Assistive Device Gait Belt,Front Wheeled Walker Orthotic/Prosthetic Devices or Brace: No Transfers Transfer Destination Bed,Chair Transfer Technique ambulated Comments Mobility Comments pt sitting on the chair and agreeable to do PT. completed sit to stand min A and ambulated in room ~ 15 ft using fWW min A. pt sat on EOB . c/o B knee pain needing to sit down. pt rested. sit to stand from EOB min A and ambulated back to the chair using FWW min A and cues. pt sat back on chair. pt requested to just rest for now . positioned on the chair. call light and table placed within reach Gait Assessment Gait Gait Assistance Required: Minimum Assistance Distance (Feet) 15 Able to Maintain Weight Bearing Status Yes During Gait Assistive Devices Assistive Device Gait Belt,Front Wheeled Walker Orthotic/Prosthetic Devices or Brace: No Gait Deviations General Gait Pattern Decreased Stride Length, Decreased Feet Clearance,Wide Based Gait Factors Limiting Gait Function Factors Limiting Gait Function Decreased Activity Tolerance, Decreased Strength,Limited Range of Motion,Pain,Poor Balance,Respiratory Distress M5 PT-IP Objective Assessments Start: 12/03/23 12:07 Freq: NEEDED Status: Active Protocol: Document 12/05/23 13:50 AB (Rec: 12/05/23 15:52 AB [id number]) Orientation Orientation/Cognition Level of Alertness Alert Orientation Name,Place,Situation Language Function Ability No Deficits Noted Safety Awareness Decreased Safety Awareness Memory Description No Deficits Noted Strength Lower Extremity Strength Assessment Within Functional Limits Muscle Tone Muscle Tone WNL Yes M6 PT-IP Treatment Start: 12/03/23 12:07 Freq: NEEDED Status: Active Protocol: Document 12/12/23 14:10 AB (Rec: 12/12/23 17:38 AB [id number]) Physical Therapy Treatment Education Education Provided Safety M7 PT-IP Assessment and Plan Start: 12/03/23 12:07 Freq: NEEDED Status: Active Protocol: Document 12/12/23 14:10 AB (Rec: 12/12/23 17:38 AB [id number]) PT Summary Assessment and Plan Potential Rehabilitation Potential Fair Summary Impairments Pain,ROM,Strength,Balance, Coordination,Sensation,Tone, Cognition,Bed Mobility, Transfers,Gait,Activity Tolerance Progress Towards Goals Slow Progress due to Pain,Slow Progress due to Medical Issues,Slow Progress due to Activity Tolerance Assessment Summary pt improving slowly with mobility but continues to have decrease activity tolerance affecting mobility independence. pt will benefit from SNF to improve overall strength and function. will continue to assess progress. Goals Bed Mobility Goal Independent Transfer Goal Standby Assistance,Front Wheeled Walker Gait Goal Standby Assistance,Front Wheel Walker Gait Distance 50 Other Goals up/down 3 steps L side bar SBA Days to Meet Goals 5 Frequency of Treatment Frequency Of Treatment Once a Day Treatment Plan Physical Therapy Treatment Plan Bed Mobility Training,Transfer Training,Gait Training, Therapeutic Exercise,Balance Retraining,Discharge Planning, Hot or Cold Pack,Neuromuscular Re-ed,Coordination Retraining ,Manual Therapy Precautions Other Precautions falls Recommendations To Nursing Amount of Assist Needed 1 Person Assist Discharge Recommendations PT Discharge Recommendations SNF Rehab Transportation Needs at Discharge Wheelchair/Cabulance
[2023-12-12 17:21] VITALS: BP 102/66; PULSE 73; RESP 16; TEMP 36.6; O2SAT 97
[2023-12-12 20:20] VITALS: BP 138/93; PULSE 61; RESP 17; TEMP 36.2; O2SAT 93
[2023-12-13] VITALS: BP 145/105; PULSE 62; RESP 18; TEMP 36.4; O2SAT 92
[2023-12-13] MEDS: HYDROCODONE/ACET 5/325 TABLET 1 TAB PO ×4 (02:56→20:07)
[2023-12-13] MEDS: FUROSEMIDE 40 MG TABLET 60 MG PO ×2 (06:04→17:48)
[2023-12-13 08:00] VITALS: BP 147/93; PULSE 71; RESP 16; TEMP 36.7; O2SAT 91
[2023-12-13] MEDS: CEFDINIR 300 MG CAPSULE PO ×2 (08:12→20:07)
[2023-12-13] MEDS: CITALOPRAM 10 MG TABLET 40 MG PO (08:12)
[2023-12-13] MEDS: METOPROLOL IR 25 MG TABLET PO ×2 (08:12→20:07)
[2023-12-13] MEDS: GABAPENTIN 100 MG CAPSULE PO ×2 (08:12→20:07)
[2023-12-13] MEDS: AMLODIPINE 5 MG TABLET PO (08:12)
[2023-12-13] MEDS: ENOXAPARIN 40 MG/0.4 ML SYRINGE SUBCUT ×2 (08:12→20:06)
[2023-12-13] MEDS: NICOTINE 21 MG PATCH TOP (08:13)
[2023-12-13] MEDS: SPIRONOLACTONE 25 MG TABLET PO (08:13)
--- NOTE | 2023-12-13 12:40 | PT-IP ANOTE ---
Attempted to see pt at 12:38, pt reports having a busy morning, up to bathroom several times and showered. Reports knee pain and would like to wait for PT until tomorrow.
--- NOTE | 2023-12-13 14:22 | PM.PN.1 ---
Subjective Subjective Interval history: The patient was admitted with a leg cellulitis and edema. He was living on a trailer at his brother's residence on [facility]. His brother is declining to have him come back. Exhaustive search for custodial facility led to no acceptance. Social work is working on placement. Subjective: The right leg is much less swollen and painful. He was having wound care and was converted from IV to oral antibiotics on 12/09. No dyspnea. Exam Vital Signs (past 8 hours): - 12/13/23 08:00 Temperature 98.0 F Pulse Rate 71 Respiratory Rate 16 Blood Pressure 147/93 H Pulse Oximetry 91 Oxygen Flow Rate 0 Fraction of Inspired Oxygen 30 SaO2/FiO2 Ratio 316 Oxygen Delivery Method Room Air,Oximask Oxygen Flow Rate 0 Narrative Exam Narrative: NAD, alert and oriented. Fluent speech. Objective Labs 12/09/23 05:41 12/09/23 05:41 [facility] Medical History Opioid dependence in remission Morbid obesity with BMI of 45.0-49.9, adult Hypertension Lymphedema Cellulitis Social History household members: family Smoking Status: Current every day smoker alcohol intake: former additional social history: On disability No current insurance divorce, loss of dog, deaths, depressed tobacco: wants to quit food: tries to eat healthy -- but likes burgers -- eats veggies, quit etoh -- a long time ago -- recently increased- 2-3 /week HISTORY OF OPIOID addiction for PAIN -- off now sig trouble with mobility and car is not working pt has had sig problems with blood pressure in the past -- stops medication 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 [facility] 09/2022 Assessment & Plan Assessment & Plan narrative: 1. Right lower extremity cellulitis, severe, culture positive for Proteus vulgaris. We will start oral antibiotics as of December 09 and monitor. Continue right leg elevation. Will add stop date of 12/16 for antibiotics. 2. Dehydration. Resolved. 3. Weakness and ground level fall due to 1. 4. Venous insufficiency. Continue furosemide 40 mg IV every 8 hours. 5. Hypertension. Improving. Continue to monitor. Continue amlodipine 5 mg daily started on 12/04/2023, home spironolactone 25 mg daily, along with IV diuresis. Consider additional antihypertensive therapy if needed, noting longstanding history of severe hypertension. 6. Depression. Restarted citalopram 20 mg daily on 12/05/2023. 7. Severe obesity. Work is working on placement. 8. DVT prophylaxis: Subcutaneous heparin PLAN -continue oral antibiotics until 12/16 -leg elevation and wound care -social work is going to begin steps towards placement. -antidepressant dose was increased on 12/09. Full resuscitation Dispo: Placement pending. Likely long-term care. THANIA: Unclear Time-Based Coding :: [TOTAL MINUTES] spent with patient and on the chart (including review of chart, obtaining history, exam, reviewing outside data, placing orders, documenting exam and treatment plan, and counseling patient) on [DATE].
[2023-12-13 16:00] VITALS: BP 174/77; PULSE 66; RESP 16; TEMP 36.2; O2SAT 97
[2023-12-13 19:00] VITALS: BP 135/84; PULSE 64; RESP 18; TEMP 36.9; O2SAT 93
[2023-12-13] MEDS: polyethylene glycoL 3350 17 GM POWD.PACK PO (20:06)
[2023-12-14 01:00] VITALS: BP 142/86; PULSE 62; RESP 18; TEMP 36.9; O2SAT 93
[2023-12-14] MEDS: HYDROCODONE/ACET 5/325 TABLET 1 TAB PO ×2 (05:43→20:28)
--- NOTE | 2023-12-14 06:18 | PC.NURSE ---
rash to left arm
[2023-12-14] MEDS: FUROSEMIDE 40 MG TABLET 60 MG PO ×2 (06:41→17:09)
[2023-12-14 08:00] VITALS: BP 131/112; PULSE 67; RESP 16; TEMP 36.9; O2SAT 97
[2023-12-14] MEDS: AMLODIPINE 5 MG TABLET PO (08:19)
[2023-12-14] MEDS: CEFDINIR 300 MG CAPSULE PO ×2 (08:19→20:27)
[2023-12-14] MEDS: SPIRONOLACTONE 25 MG TABLET PO (08:20)
[2023-12-14] MEDS: ENOXAPARIN 40 MG/0.4 ML SYRINGE SUBCUT ×2 (08:20→20:29)
[2023-12-14] MEDS: METOPROLOL IR 25 MG TABLET PO ×2 (08:20→20:27)
[2023-12-14] MEDS: CITALOPRAM 10 MG TABLET 40 MG PO (08:20)
[2023-12-14] MEDS: NICOTINE 21 MG PATCH TOP (08:20)
[2023-12-14] MEDS: GABAPENTIN 100 MG CAPSULE PO ×2 (08:20→20:27)
[2023-12-14] MEDS: LORazepam 0.5 MG TABLET PO (08:35)
--- NOTE | 2023-12-14 13:02 | PM.PN.1 ---
Subjective Subjective Interval history: The patient was admitted with a leg cellulitis and edema. He was living on a trailer at his brother's residence on [facility]. His brother is declining to have him come back. Exhaustive search for correction facility led to no acceptance. Social work is working on placement. Subjective: The right leg is much less swollen and painful, does have pain moving with therapies. He was having wound care and was converted from IV to oral antibiotics on 12/09. No dyspnea. Exam Vital Signs (past 8 hours): - 12/14/23 08:00 Temperature 98.5 F Pulse Rate 67 Respiratory Rate 16 Blood Pressure 131/112 H Pulse Oximetry 97 Oxygen Flow Rate 0 Fraction of Inspired Oxygen 30 SaO2/FiO2 Ratio 316 Oxygen Delivery Method Room Air,Oximask Oxygen Flow Rate 0 Narrative Exam Narrative: NAD, alert and oriented. Fluent speech. Objective Labs 12/09/23 05:41 12/09/23 05:41 [facility] Medical History Opioid dependence in remission Morbid obesity with BMI of 45.0-49.9, adult Hypertension Lymphedema Cellulitis Social History household members: family Smoking Status: Current every day smoker alcohol intake: former additional social history: On disability No current insurance divorce, loss of dog, deaths, depressed tobacco: wants to quit food: tries to eat healthy -- but likes burgers -- eats veggies, quit etoh -- a long time ago -- recently increased- 2-3 /week HISTORY OF OPIOID addiction for PAIN -- off now sig trouble with mobility and car is not working pt has had sig problems with blood pressure in the past -- stops medication 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 [facility] 09/2022 Assessment & Plan Assessment & Plan narrative: 1. Right lower extremity cellulitis, severe, culture positive for Proteus vulgaris. We will start oral antibiotics as of December 09 and monitor. Continue right leg elevation. Will add stop date of 12/16 for antibiotics. 2. Dehydration. Resolved. 3. Weakness and ground level fall due to 1. 4. Venous insufficiency. Continue furosemide 40 mg IV every 8 hours. 5. Hypertension. Improving. Continue to monitor. Continue amlodipine 5 mg daily started on 12/04/2023, home spironolactone 25 mg daily, along with IV diuresis. Consider additional antihypertensive therapy if needed, noting longstanding history of severe hypertension. 6. Depression. Restarted citalopram 20 mg daily on 12/05/2023. 7. Severe obesity. Work is working on placement. 8. DVT prophylaxis: Subcutaneous heparin PLAN -continue oral antibiotics until 12/16 -leg elevation and wound care -social work is going to begin steps towards placement. -antidepressant dose was increased on 12/09. Full resuscitation Dispo: Placement pending. Likely long-term care. THANIA: Unclear Time-Based Coding :: [TOTAL MINUTES] spent with patient and on the chart (including review of chart, obtaining history, exam, reviewing outside data, placing orders, documenting exam and treatment plan, and counseling patient) on [DATE].
[2023-12-14] MEDS: OXYCODONE/ACETAMINOPHEN 5/325 TABLET 1 TAB PO ×2 (13:51→17:12)
--- NOTE | 2023-12-14 14:08 | PT.IPTN ---
Current Diagnoses Lymphedema, not elsewhere classified (12/02/23) Non-pressure chronic ulcer of other part of right lower leg with fat layer exposed (12/02/23) Contusion of right shoulder, initial encounter (12/02/23) Physical Therapy Treatment Note M2 PT-IP Current Condition Start: 12/03/23 12:07 Freq: NEEDED Status: Active Protocol: Document 12/05/23 13:50 AB (Rec: 12/05/23 15:52 AB [id number]) Physical Therapy Current Condition Current Condition Evaluation Date 12/05/23 Treatment Diagnosis dehydration; R shoulder contusion; difficulty in walking Onset Date 12/02/23 M3 PT-IP Subjective Start: 12/03/23 12:07 Freq: NEEDED Status: Active Protocol: Document 12/14/23 13:51 MB (Rec: 12/14/23 14:08 MB [id number]) Subjective Physical Therapy Visit Type Type Treatment Note Visit Start Time 13:51 Visit Stop Time 14:01 Number of PRETZEL TWISTING MACHINE OPERATOR Visits 0 Physical Therapy Visit Comments Patient Comments Pt is agreeable to PT. He states that his knee pain is a little better. Therapy Pain Assessment Pain When Pain Assessed During Mobility Pain Present Pain Present Pain Reported Location Bilateral Knee Intensity 7 Scale Used Numeric (0 - 10) M4 PT-IP Mobility and Gait Start: 12/03/23 12:07 Freq: NEEDED Status: Active Protocol: Document 12/14/23 13:51 MB (Rec: 12/14/23 14:08 MB [id number]) PT-Transfer Assessment Sit to and From Stand Sit to and from Stand Contact Guard Assistance,1 Person Assistance,Use of Upper Extremities Equipment Transfer Assistive Device Gait Belt,Front Wheeled Walker Orthotic/Prosthetic Devices or Brace: No Transfers Transfer Destination Chair Transfer Technique Ambulation Transfer Ability Level of Assist Contact Guard Assistance,1 Person Assistance,Use of Upper Extremities Gait Assessment Gait Gait Assistance Required: Contact Guard Assist,1 Person Assist Distance (Feet) 30 Able to Maintain Weight Bearing Status Yes During Gait Assistive Devices Assistive Device Gait Belt,Front Wheeled Walker Orthotic/Prosthetic Devices or Brace: No Gait Deviations General Gait Pattern Decreased Stride Length, Decreased Feet Clearance,Wide Based Gait Factors Limiting Gait Function Factors Limiting Gait Function Decreased Activity Tolerance, Decreased Strength,Limited Range of Motion,Pain,Poor Balance Comments Gait Comments Pt progresses with gait distance today PT-Balance Assessment Sitting Balance and Reactions Static Sitting Balance Ability Good Dynamic Sitting Balance Ability Good Standing Balance and Reactions Static Standing Balance Ability Fair Dynamic Standing Balance Ability Fair Device Used RW M5 PT-IP Objective Assessments Start: 12/03/23 12:07 Freq: NEEDED Status: Active Protocol: Document 12/05/23 13:50 AB (Rec: 12/05/23 15:52 AB [id number]) Orientation Orientation/Cognition Level of Alertness Alert Orientation Name,Place,Situation Language Function Ability No Deficits Noted Safety Awareness Decreased Safety Awareness Memory Description No Deficits Noted Strength Lower Extremity Strength Assessment Within Functional Limits Muscle Tone Muscle Tone WNL Yes M6 PT-IP Treatment Start: 12/03/23 12:07 Freq: NEEDED Status: Active Protocol: Document 12/14/23 13:51 MB (Rec: 12/14/23 14:08 MB [id number]) Physical Therapy Treatment Exercises Exercises Ankle Pumps Education Education Provided Safety M7 PT-IP Assessment and Plan Start: 12/03/23 12:07 Freq: NEEDED Status: Active Protocol: Document 12/14/23 13:51 MB (Rec: 12/14/23 14:08 MB [id number]) PT Summary Assessment and Plan Potential Rehabilitation Potential Fair Status of Condition at Evaluation Evolving Summary Impairments Pain,ROM,Strength,Balance, Coordination,Bed Mobility, Transfers,Gait,Activity Tolerance Progress Towards Goals Progressing Toward Goals,Slow Progress due to Pain Assessment Summary Pt is slowly progressing towards goals and he gait trains 30' with RW and CGA this afternoon. His pain is a little better on pain medication this afternoon. Goals Bed Mobility Goal Independent Transfer Goal Standby Assistance,Front Wheeled Walker Gait Goal Standby Assistance,Front Wheel Walker Gait Distance 50 Other Goals up/down 3 steps L side bar SBA Days to Meet Goals 5 Frequency of Treatment Frequency Of Treatment Once a Day Treatment Plan Physical Therapy Treatment Plan Bed Mobility Training,Transfer Training,Gait Training, Therapeutic Exercise,Balance Retraining,Discharge Planning, Hot or Cold Pack,Neuromuscular Re-ed,Coordination Retraining ,Manual Therapy Precautions Other Precautions falls Recommendations To Nursing Amount of Assist Needed 1 Person Assist Discharge Recommendations PT Discharge Recommendations SNF Rehab Transportation Needs at Discharge Wheelchair/Cabulance
--- NOTE | 2023-12-14 14:15 | CM.DPC ---
Addendum entered by Anabel Beth, KARMA 12/14/23 15:41: ADD: Return email from [facility] Vivien Chago: Horace Little, Once we receive the LTC application and get it processed, the intake team will work on the referral.? We don't have a system for expediting intakes, it is on a first come first served basis.? Once the case is assigned to an acute hospital worker, we will schedule an assessment.? This client is not in our system yet, but we will reach out when he is assigned. Please reach out to Danielle Shelby, ward service supervisor at [email or web address]? Thanks, Vivien Anders Addendum entered by Anabel Beth, TANK TERMINAL GAUGER 12/14/23 14:35: ADD: Call from Thao at [facility] stating they received the [facility] report that was filed on Thu12/11/23 since pt was not allowed to d/c back to [place] and they determined that pt currently does not meet their criteria for vulnerable adult or self neglect at this time. Report will be closed out and not opened for Investigation at this time. BF Original Note: DCP Ongoing SNF attempts: Per MD, pt medically stable to d/c once safe discharge plan secured. Pt still painful due to cellulitis and his bad knees and working on better pain management to increase his mobility. Per PT, pt making progress and now 1PA to CGA but very limited with mobility and endurance and feel pt very high risk for readmit if he cannot d/c to LTC or SNF. TERI met bedside with pt and explained role and he confirms that his brother still refusing for him to go back to his property on [address]. SW inquired about other family members for temporary stay while waiting for LTC placement and pt states any of his family (brother in [place] or sister in [place] etc) all have medical conditions/cancer at this time and not an option. SW discussed the process for LTC placement and need to attempt other SNFs in [place] as [facility] and [facility] SNFs declined pt due to poor d/c plan in place. Pt agreeable with [place] SNF referrals. SW discussed potential need if no SNFs can accept to have backup plan of d/c to the community while waiting for LTC process and pt confirms that he could likely stay at a local motel if absolutely needed. [facility] following to review closer to d/c if pt discharges to the community rather than SNF. Pt states he applied for Section 8 housing through [email or web address] and had been keeping in touch with them via email to remain on the list and was working with someone in [place] but pt's email is not currently accessible through his phone as it's locked out somehow and SW provided pt with the contact info to call [employer] and [facility] to continue his contacts and updates with them as well while waiting in the hospital. SW left for [facility] to determine if pt has been assigned to a LTC CM for Functional Assessment and also sent email to the [facility] LTC placement ward service supervisor Vivien Anders requesting assist with getting assigned [facility] CM. SW made [place] SNF referrals to the following facilities: [facility]: Viki willing to review and faxed to [phone] [facility]: have openings, willing to review, faxed referral [facility]: bed will be open on Thu this week, will review, faxed referral [facility]: no beds and no LTC beds at this time and not willing to review [facility]: have beds and willing to review and faxed referral [facility]: left msg, attempted to fax but might not have gone through [facility]: left msg requesting review and faxed referral [facility]: would not let me leave a msg but faxed referral Bet[facility] Souza: left msg requesting review and faxed referral [facility] done in anticipation of hopeful SNF placement in [place]. Plan: SW to follow closely with [facility] to confirm CM assigned for Functional Assessment and to follow up with above SNF referrals to attempt SNF at d/c for wound care and strengthening. SW to keep [facility] and [facility] updated if pt discharges to the community rather than SNF. KARMA De Souza
[2023-12-14 18:00] VITALS: BP 144/78; PULSE 65; RESP 16; TEMP 36.6; O2SAT 97
[2023-12-14 20:00] VITALS: BP 160/91; PULSE 64; RESP 20; TEMP 37; O2SAT 93
[2023-12-14] MEDS: polyethylene glycoL 3350 17 GM POWD.PACK PO (20:29)
[2023-12-14] MEDS: ZOLPIDEM 5 MG TABLET PO (23:52)
[2023-12-15] MEDS: HYDROCODONE/ACET 5/325 TABLET 1 TAB PO ×3 (05:06→23:59)
[2023-12-15] MEDS: FUROSEMIDE 40 MG TABLET 60 MG PO ×2 (06:18→16:21)
[2023-12-15] MEDS: polyethylene glycoL 3350 17 GM POWD.PACK PO ×2 (09:13→21:20)
[2023-12-15] MEDS: GABAPENTIN 100 MG CAPSULE PO ×3 (09:13→21:19)
[2023-12-15] MEDS: SPIRONOLACTONE 25 MG TABLET PO (09:13)
[2023-12-15] MEDS: AMLODIPINE 5 MG TABLET PO (09:13)
[2023-12-15] MEDS: CITALOPRAM 10 MG TABLET 40 MG PO (09:13)
[2023-12-15] MEDS: METOPROLOL IR 25 MG TABLET PO ×2 (09:13→21:19)
[2023-12-15] MEDS: ENOXAPARIN 40 MG/0.4 ML SYRINGE SUBCUT ×2 (09:13→21:19)
[2023-12-15] MEDS: NICOTINE 21 MG PATCH TOP (09:14)
--- NOTE | 2023-12-15 09:15 | PT.IPTN ---
Current Diagnoses Lymphedema, not elsewhere classified (12/02/23) Non-pressure chronic ulcer of other part of right lower leg with fat layer exposed (12/02/23) Contusion of right shoulder, initial encounter (12/02/23) Physical Therapy Treatment Note M2 PT-IP Current Condition Start: 12/03/23 12:07 Freq: NEEDED Status: Active Protocol: Document 12/05/23 13:50 AB (Rec: 12/05/23 15:52 AB [id number]) Physical Therapy Current Condition Current Condition Evaluation Date 12/05/23 Treatment Diagnosis dehydration; R shoulder contusion; difficulty in walking Onset Date 12/02/23 M3 PT-IP Subjective Start: 12/03/23 12:07 Freq: NEEDED Status: Active Protocol: Document 12/15/23 10:22 TS (Rec: 12/15/23 10:28 TS [id number]) Subjective Physical Therapy Visit Type Type Treatment Note Visit Start Time 09:15 Visit Stop Time 09:40 Number of AEROSPACE ENGINEER Visits 1 Physical Therapy Visit Comments Patient Comments Pt found resting in the chair, he is agreeable to PT. Therapy Pain Assessment Pain When Pain Assessed During Mobility Pain Present Pain Present Pain Reported M4 PT-IP Mobility and Gait Start: 12/03/23 12:07 Freq: NEEDED Status: Active Protocol: Document 12/15/23 10:22 TS (Rec: 12/15/23 10:28 TS [id number]) PT-Transfer Assessment Sit to and From Stand Sit to and from Stand Contact Guard Assistance,1 Person Assistance,Use of Upper Extremities Equipment Transfer Assistive Device Gait Belt,Front Wheeled Walker Orthotic/Prosthetic Devices or Brace: No Comments Mobility Comments STS with FWW cGA. Pt ambulates 2x15' with FWW, heavy UE assist and a rest break inbetween. Pt ambulates back to the chair, was left with all needs needs. Gait Assessment Gait Gait Assistance Required: Contact Guard Assist,1 Person Assist Distance (Feet) 30 Able to Maintain Weight Bearing Status Yes During Gait Assistive Devices Assistive Device Gait Belt,Front Wheeled Walker Gait Deviations General Gait Pattern Decreased Stride Length, Decreased Feet Clearance,Wide Based Gait Factors Limiting Gait Function Factors Limiting Gait Function Decreased Activity Tolerance, Decreased Strength,Limited Range of Motion,Pain,Poor Balance PT-Balance Assessment Sitting Balance and Reactions Static Sitting Balance Ability Good Dynamic Sitting Balance Ability Good Standing Balance and Reactions Static Standing Balance Ability Fair Dynamic Standing Balance Ability Fair Device Used FWW M5 PT-IP Objective Assessments Start: 12/03/23 12:07 Freq: NEEDED Status: Active Protocol: Document 12/05/23 13:50 AB (Rec: 12/05/23 15:52 AB [id number]) Orientation Orientation/Cognition Level of Alertness Alert Orientation Name,Place,Situation Language Function Ability No Deficits Noted Safety Awareness Decreased Safety Awareness Memory Description No Deficits Noted Strength Lower Extremity Strength Assessment Within Functional Limits Muscle Tone Muscle Tone WNL Yes M6 PT-IP Treatment Start: 12/03/23 12:07 Freq: NEEDED Status: Active Protocol: Document 12/15/23 10:22 TS (Rec: 12/15/23 10:28 TS [id number]) Physical Therapy Treatment Education Education Provided Safety M7 PT-IP Assessment and Plan Start: 12/03/23 12:07 Freq: NEEDED Status: Active Protocol: Document 12/15/23 10:22 TS (Rec: 12/15/23 10:28 TS [id number]) PT Summary Assessment and Plan Potential Rehabilitation Potential Fair Summary Impairments Pain,ROM,Strength,Balance, Coordination,Bed Mobility, Transfers,Gait,Activity Tolerance Progress Towards Goals Progressing Toward Goals,Slow Progress due to Pain Assessment Summary Pt is making some progress but continues to be slow. He demonstrates less difficulty with STS and with ambulation this session. Has more tolerance to activity. PT continues to recommend SNF. Goals Bed Mobility Goal Independent Transfer Goal Standby Assistance,Front Wheeled Walker Gait Goal Standby Assistance,Front Wheel Walker Gait Distance 50 Other Goals up/down 3 steps L side bar SBA Days to Meet Goals 5 Frequency of Treatment Frequency Of Treatment Once a Day Treatment Plan Physical Therapy Treatment Plan Bed Mobility Training,Transfer Training,Gait Training, Therapeutic Exercise,Balance Retraining,Discharge Planning, Hot or Cold Pack,Neuromuscular Re-ed,Coordination Retraining ,Manual Therapy Precautions Other Precautions falls Recommendations To Nursing Amount of Assist Needed 1 Person Assist Discharge Recommendations PT Discharge Recommendations SNF Rehab Transportation Needs at Discharge Wheelchair/Cabulance
[2023-12-15] MEDS: CEFDINIR 300 MG CAPSULE PO (09:20)
[2023-12-15 10:00] VITALS: BP 158/100; PULSE 63; RESP 16; TEMP 36.2; O2SAT 98
--- NOTE | 2023-12-15 10:13 | PM.PN.1 ---
Subjective Subjective Interval history: Developed a pruritic left arm, chest, and back rash. Leg swelling getting better daily. Still some intermittent sharp pains, but not as bad as the itching today. Exam Vital Signs (past 8 hours): Fraction of Inspired Oxygen 30 SaO2/FiO2 Ratio 316 Oxygen Delivery Method Room Air,Oximask Oxygen Flow Rate 0 Narrative Exam Narrative: NAD, alert and oriented. Fluent speech. R leg swelling improved. Maculupapular erythematous rash most prominent left arm, but extending to the chest wall, back and smaller extent R arm as well. Objective Labs 12/09/23 05:41 12/09/23 05:41 [facility] Medical History Opioid dependence in remission Morbid obesity with BMI of 45.0-49.9, adult Hypertension Lymphedema Cellulitis Social History household members: family Smoking Status: Current every day smoker alcohol intake: former additional social history: On disability No current insurance divorce, loss of dog, deaths, depressed tobacco: wants to quit food: tries to eat healthy -- but likes burgers -- eats veggies, quit etoh -- a long time ago -- recently increased- 2-3 /week HISTORY OF OPIOID addiction for PAIN -- off now sig trouble with mobility and car is not working pt has had sig problems with blood pressure in the past -- stops medication 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 [facility] 09/2022 Assessment & Plan Assessment & Plan narrative: 1. Right lower extremity cellulitis, severe, culture positive for Proteus vulgaris. We will start oral antibiotics as of December 09 and monitor. Continue right leg elevation. Will add stop date of 12/16 for antibiotics. 2. Dehydration. Resolved. 3. Weakness and ground level fall due to 1. 4. Venous insufficiency. 5. Hypertension. 6. Depression. Restarted citalopram 20 mg daily on 12/05/2023. 7. Severe obesity. Work is working on [employer]. 8. DVT prophylaxis: Subcutaneous heparin 9. Allergic reaction to cephalosporin, not present on admission. PLAN -continue oral antibiotics until 12/16, change cefdinir to levofloxacin today given maculopapular rash noted, probable allergy. Benadryl prn for itching -leg elevation and wound care -social work is going to begin steps towards placement. -antidepressant dose was increased on 12/09. -BP elevated today, have started amlodipine will increase to 10 mg daily today. Continue aldactone, metoprolol, and furosemide 60 mg BID. Full resuscitation Dispo: Placement pending. Likely long-term care. THANIA: Unclear Time-Based Coding :: [TOTAL MINUTES] spent with patient and on the chart (including review of chart, obtaining history, exam, reviewing outside data, placing orders, documenting exam and treatment plan, and counseling patient) on [DATE].
--- NOTE | 2023-12-15 10:46 | CM.DPC ---
DCP Cont. Reviewed EMR and team rounds for status updates. Received call from [facility], they have accepted pt and will transport him tomorrow 12/15, pending time. Will call in the am to clarify transport. Faxed PASSAR and non-smoking agreement, per their request. Will fax d/c clinicals prior to d/c. Updated pt, RN, and hospitalist of plan.
[2023-12-15] MEDS: diphenhydrAMINE 25 MG TABLET PO ×2 (12:03→21:25)
[2023-12-15] MEDS: levoFLOXacin 250 MG TABLET 750 MG PO (12:03)
[2023-12-15 17:57] VITALS: BP 137/92; PULSE 67; RESP 16; TEMP 36.5; O2SAT 99
[2023-12-15 20:00] VITALS: BP 138/76; PULSE 77; RESP 22; TEMP 37; O2SAT 91
[2023-12-16 01:33] VITALS: BP 138/89; PULSE 69; RESP 22; TEMP 36.7; O2SAT 93
[2023-12-16 04:41] LABS: Add Manual Diff / Slide Review NO; Basophils Absolute Auto 100 /uL (0-100); Basophils Percent Auto 1.1 % (0-2); Eosinophils Absolute Auto 500 /uL (0-450); Eosinophils Percent Auto 5.5 % (2-4); Hematocrit 45.1 % (41-53); Hemoglobin 14.9 g/dL (13.5-17.5); Lymphocytes Absolute Auto 2100 /uL (1100-4500); Lymphocytes Percent Auto 24.4 % (25-40); Mean Corpuscular Volume 84.8 fL (80-100); Monocytes Absolute Auto 600 /uL (0-900); Monocytes Percent Auto 6.7 % (3-14); Neutrophils Absolute Auto 5400 /uL (1500-7000); Neutrophils Percent Auto 62.3 % (50-75); Platelet Count 348 X10^3/uL (150-400); Red Blood Cell Count 5.32 X10^6/uL (4.5-5.9); Red Cell Distribution Width 16.6 % (11.6-14.8); White Blood Cell Count 8.7 X10^3/uL (4.5-11.0)
[2023-12-16 05:04] LABS: BUN Creatinine Ratio 19.4 (6-22); Blood Urea Nitrogen 24 mg/dL (9-20); Calcium 9.2 mg/dL (8.4-10.2); Carbon Dioxide 31 mmol/L (22-32); Chloride 97 mmol/L (98-107); Estimated Glomerular Filt Rate > 60 mL/min (>60); Glucose 93 mg/dL (70-100); HEMOLYSIS 15 (0-50); Potassium 4.3 mmol/L (3.4-5.1); Sodium 136 mmol/L (137-145)
[2023-12-16] MEDS: FUROSEMIDE 40 MG TABLET 60 MG PO ×2 (06:51→17:23)
[2023-12-16] MEDS: levoFLOXacin 250 MG TABLET 750 MG PO (06:51)
[2023-12-16] MEDS: diphenhydrAMINE 25 MG TABLET PO ×2 (06:54→17:25)
--- NOTE | 2023-12-16 08:23 | CM.DPC ---
KELYP Cont. Reviewed EMR and met with RN/Hospitalist for updates. Pt is being discharged today to [facility] today between 11-12:00pm, facility is providing transport. Will fax d/c orders and clinicals once available, no further needs identified at this time.
[2023-12-16] MEDS: SPIRONOLACTONE 25 MG TABLET PO (09:06)
[2023-12-16] MEDS: GABAPENTIN 100 MG CAPSULE PO ×3 (09:06→20:44)
[2023-12-16] MEDS: METOPROLOL IR 25 MG TABLET PO ×2 (09:06→20:44)
[2023-12-16] MEDS: ENOXAPARIN 40 MG/0.4 ML SYRINGE SUBCUT ×2 (09:06→20:43)
[2023-12-16] MEDS: CITALOPRAM 10 MG TABLET 40 MG PO (09:06)
[2023-12-16] MEDS: AMLODIPINE 5 MG TABLET 10 MG PO (09:06)
[2023-12-16] MEDS: OXYCODONE/ACETAMINOPHEN 5/325 TABLET 1 TAB PO ×2 (09:07→14:32)
--- NOTE | 2023-12-16 09:07 | PT-IP ANOTE ---
Pt refused PT at this time. Pt would like to rest.
[2023-12-16] MEDS: NICOTINE 21 MG PATCH TOP (09:10)
[2023-12-16] MEDS: predniSONE 20 MG TABLET 60 MG PO (09:22)
--- NOTE | 2023-12-16 09:31 | P.PN_ITS ---
Subjective Subjective Interval history: Subjective: He was develop more of a rash today. This is fairly severe over his torso and left greater than right arm. He was macular papular and quite pruritic. No dyspnea or wheezing. Exam Vital Signs (past 8 hours): - 12/16/23 01:33 Temperature 98.1 F Pulse Rate 69 Respiratory Rate 22 Blood Pressure 138/89 Pulse Oximetry 93 Oxygen Flow Rate 0 Fraction of Inspired Oxygen 30 SaO2/FiO2 Ratio 316 Oxygen Delivery Method Room Air,Oximask Oxygen Flow Rate 0 Narrative Exam Narrative: NAD, alert and oriented. Fluent speech. No tongue swelling. Lungs are clear, normal rate and effort. No wheezing. Heart is regular, no murmur gallop or rub. Abdomen is soft, non distended. Extremities are free of edema. Skin: Macular papular rash over the torso and left greater than right arm. Objective Labs 12/16/23 04:20 12/16/23 04:20 Labs: Laboratory Results - last 24 hr 12/16/23 04:20 WBC 8.7 RBC 5.32 Hgb 14.9 Hct 45.1 MCV 84.8 MCH 28.0 MCHC 33.0 RDW 16.6 H Plt Count 348 Neut % (Auto) 62.3 Lymph % (Auto) 24.4 L [place] % (Auto) 6.7 Eos % (Auto) 5.5 H Baso % (Auto) 1.1 Neut # (Auto) 5400 Lymph # (Auto) 2100 [place] # (Auto) 600 Eos # (Auto) 500 H Baso # (Auto) 100 Sodium 136 L Potassium 4.3 Chloride 97 L Carbon Dioxide 31 BUN 24 H Creatinine 1.24 Estimated GFR > 60 BUN/Creatinine Ratio 19.4 Glucose 93 Calcium 9.2 [facility] Medical History Opioid dependence in remission Morbid obesity with BMI of 45.0-49.9, adult Hypertension Lymphedema Cellulitis Social History household members: family Smoking Status: Current every day smoker alcohol intake: former additional social history: On disability No current insurance divorce, loss of dog, deaths, depressed tobacco: wants to quit food: tries to eat healthy -- but likes burgers -- eats veggies, quit etoh -- a long time ago -- recently increased- 2-3 /week HISTORY OF OPIOID addiction for PAIN -- off now sig trouble with mobility and car is not working pt has had sig problems with blood pressure in the past -- stops medication 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 [facility] 09/2022 Assessment & Plan Assessment & Plan narrative: 1. Right lower extremity cellulitis, severe, culture positive for Proteus vulgaris. We will start oral antibiotics as of December 09 and monitor. Continue right leg elevation. Will add stop date of 12/16 for antibiotics. 2. Dehydration. Resolved. 3. Weakness and ground level fall due to 1. 4. Venous insufficiency. 5. Hypertension. 6. Depression. Restarted citalopram 20 mg daily on 12/05/2023. 7. Severe obesity. Work is working on placement. 8. DVT prophylaxis: Subcutaneous heparin 9. Allergic reaction to cephalosporin, not present on admission. PLAN -continue oral antibiotics until 12/16, change cefdinir to levofloxacin today given maculopapular rash noted, probable allergy. Benadryl prn for itching -leg elevation and wound care -complete Levaquin through December 16. -delay discharge by 1 day, prednisone 60 mg b.i.d. start now. -continue antihistamines, monitor rash. THANIA: 12/16. Time-Based Coding :: [TOTAL MINUTES] spent with patient and on the chart (including review of chart, obtaining history, exam, reviewing outside data, placing orders, documenting exam and treatment plan, and counseling patient) on [DATE].
--- NOTE | 2023-12-16 10:03 | P.DS_ITS ---
History of Present Illness History of Present Illness Chief complaint: Found Down x4 Days Narrative: Per H&P: 58-year-old with past medical history of hypertension, morbid obesity, chronic lower extremities lymphedema, opioid dependence in remission, presents with a fall and was found down for four days. Per the patient report, the patient was sitting in his recliner when it collapsed and he fell to the floor. The patient had contusion of his right shoulder. The patient was too weak to get up and was down on the ground for three almost 4 days. Patient denies any lost of consciousness, but admit to hit his head lightly. Patient denies any headache. In our ER, the patient was hemodynamically stable without any signs of infection. Chest x-ray shows now clear sign of pneumonia. The patient, however, saturating well. Due to , patient shoulder pain as well as difficulty functioning at home, our ER physician would like to admit the patient for IV fluid hydration as well as for physical therapy. Discharge Providers Provider Date of admission: 12/02/23 23:18 Discharge Date: 12/16/23 Primary care physician: Neelam Doss MD Consults: 12/02/23 19:30 Consult to [facility] [employer] Fre[employer] Clerk Stat Comment: [employer] Fre[employer] Clerk Consult needed for:: Lives alone Comment: Lives alone, hx falls, too obese to get himself up after a fall, found down x 4 days 12/02/23 22:46 Consult to Occupational Therapy Evaluate & Treat Comment: Physician Instructions: Evaluate and treat 12/02/23 22:47 Consult to Physical Therapy Evaluate & Treat Comment: Physician Instructions: Evaluate and Treat 12/03/23 01:31 Consult to [facility] Export Freight Clerk Routine Comment: Export Freight Clerk Consult needed for:: Lives alone Unable to care for self No caregiver at home 12/04/23 17:13 Consult to Wound Care Routine Comment: right leg wound Consulting Provider: [facility] Discharge provider: Stefan Montalvo MD Summary Hospital Course Discharge Diagnosis: 1. Right lower extremity cellulitis, severe, culture positive for Proteus vulgaris. Stop date of 12/16 for antibiotics. 2. Dehydration. Resolved. 3. Weakness and ground level fall due to 1. 4. Venous insufficiency. 5. Hypertension. 6. Depression. 7. Severe obesity. 8. Allergic reaction to cephalosporin, not present on admission. Hospital Course: He was admitted for a fall and being down. He was found to have gross leg edema and a right leg wound and cellulitis. Cultures were positive for Proteus. He was initially treated with ceftriaxone and vancomycin. Vancomycin was stopped after cultures were back. He was seen by wound care and had good improvement with diuresis and wound care. He did have great debility. He was switched from ceftriaxone to cefdinir on December 09. He developed a rash on December 14. He was started on antihistamines in his cefdinir was changed to levofloxacin and he has improvement in his rash on December 15. He was last day for antibiotics will be December 16. He will be continued on prednisone for an additional 3 days at the [facility] and antihistamines. His antidepressant was restarted in the dose was increased from 20-40. He also had adjustments in his blood pressure medications. His Lasix was 60 b.i.d., this will be decreased to 60 daily on the day of discharge and his edema and BP will have to be monitored. Status at Discharge Cognitive/behavioral status at discharge: oriented Functional status at discharge: uses cane/walker Overall status at discharge: patient is progressing back to baseline Time Spent with Patient Time spent: Greater than 30 minutes Exam Vital Signs (past 8 hours): Fraction of Inspired Oxygen 30 SaO2/FiO2 Ratio 316 Oxygen Delivery Method Room Air,Oximask Oxygen Flow Rate 0 Narrative Exam Narrative: NAD, alert and oriented. Fluent speech. No tongue swelling. Lungs are clear, normal rate and effort. No wheezing. Heart is regular, no murmur gallop or rub. Abdomen is soft, non distended. Extremities are free of edema. Skin: Macular papular rash over the torso and left greater than right arm. Objective Imaging CT scan - chest: Radiologist's impression: The heart is significantly enlarged. Questionable mild prominence of the interstitial markings, correlate for signs of pulmonary edema. Venous US: Radiologist's impression: Unremarkable duplex arterial ultrasound without evidence significant peripheral vascular disease Labs 12/16/23 04:20 12/16/23 04:20 Labs: Laboratory Results - last 24 hr 12/16/23 04:20 WBC 8.7 RBC 5.32 Hgb 14.9 Hct 45.1 MCV 84.8 MCH 28.0 MCHC 33.0 RDW 16.6 H Plt Count 348 Neut % (Auto) 62.3 Lymph % (Auto) 24.4 L [place] % (Auto) 6.7 Eos % (Auto) 5.5 H Baso % (Auto) 1.1 Neut # (Auto) 5400 Lymph # (Auto) 2100 [place] # (Auto) 600 Eos # (Auto) 500 H Baso # (Auto) 100 Sodium 136 L Potassium 4.3 Chloride 97 L Carbon Dioxide 31 BUN 24 H Creatinine 1.24 Estimated GFR > 60 BUN/Creatinine Ratio 19.4 Glucose 93 Calcium 9.2 [facility] Medical History Opioid dependence in remission Morbid obesity with BMI of 45.0-49.9, adult Hypertension Lymphedema Cellulitis Social History household members: family Smoking Status: Current every day smoker alcohol intake: former additional social history: On disability No current insurance divorce, loss of dog, deaths, depressed tobacco: wants to quit food: tries to eat healthy -- but likes burgers -- eats veggies, quit etoh -- a long time ago -- recently increased- 2-3 /week HISTORY OF OPIOID addiction for PAIN -- off now sig trouble with mobility and car is not working pt has had sig problems with blood pressure in the past -- stops medication 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 [facility] 09/2022 Discharge Assessment & Plan Assessment and Plan Assessment: 1. Right lower extremity cellulitis, severe, culture positive for Proteus vulgaris. Stop date of 12/16 for antibiotics. 2. Dehydration. Resolved. 3. Weakness and ground level fall due to 1. 4. Venous insufficiency. 5. Hypertension. 6. Depression. 7. Severe obesity. 8. Allergic reaction to cephalosporin, not present on admission. Plan of Treatment: Stable for discharge to [facility] facility. He was 1 more day of antibiotic, Levaquin on December 16. He will be on 4 days of prednisone at 60 mg daily for his drug induced rash. We will decrease his Lasix to once a day dosing. Discharge Plan Discharge Plan Patient Disposition: SNF Other facility: [facility] Under care of provider: SNF provider Provider Discharge Comment: Stable for discharge. He does have a rash related to antibiotics which will be treated with prednisone and antihistamines for the next several days. Discharge orders & Medications Prescriptions: New furosemide 40 mg Tablet 60 mg PO DAILY Qty: 30 0RF citalopram 10 mg Tablet 40 mg PO DAILY Qty: 30 0RF hydrocodone-acetaminophen 5-325 mg Tablet 1 tab PO Q4H PRN (Reason: Pain, Moderate (4-6)) Qty: 15 0RF prednisone 20 mg Tablet 60 mg PO DAILY Qty: 24 0RF levofloxacin 250 mg Tablet 750 mg PO 0700 Qty: 1 0RF amlodipine [Norvasc] 5 mg Tablet 10 mg PO DAILY Qty: 30 0RF diphenhydramine HCl [Allergy (diphenhydramine)] 25 mg Tablet 25 mg PO Q6HR PRN (Reason: Itching) Qty: 30 0RF nicotine 21 mg/24 hr Patch 24 Hour 21 mg topical DAILY Qty: 14 0RF zolpidem 5 mg Tablet 5 mg PO BEDTIME PRN (Reason: Sleep) Qty: 10 0RF nystatin [Nystop] 100,000 unit/gram Powder 1 applic topical BID PRN (Reason: Rash (groin)) Qty: 30 0RF metoprolol tartrate 25 mg Tablet 25 mg PO BID Qty: 60 0RF Continued spironolactone 25 mg tablet 25 mg PO DAILY Qty: 30 0RF gabapentin 100 mg capsule 100 mg PO TID Qty: 60 4RF Discontinued furosemide 20 mg tablet 20 mg PO DAILY Patient Comments: i have not been taking any of the meds citalopram 20 mg tablet 20 mg PO DAILY Qty: 30 5RF Patient Comments: pt not taking Follow up/Referrals: Neelam Doss MD [Primary Care Provider] - Discharge Health Status Precautions: [place] Diet/Activity/Treatments Diet: Regular Liquid consistency: Normal/Thin Food texture: Regular Activity: As tolerated. Skin/Wound/Dressing Care Report to your healthcare provider any signs of infection, such as:: chills, fever, increased pain, unusual drainage and unusual redness Visit Report/Discharge Packet Stand Alone Forms: Patient Portal/API Discharge Data Primary Care Provider: Neelam Doss
--- NOTE | 2023-12-16 14:57 | P.PN_ITS ---
Subjective Subjective Interval history: S: rash is a little better, bit still itchy. Dsicharge fell through. Exam Vital Signs (past 8 hours): Fraction of Inspired Oxygen 30 SaO2/FiO2 Ratio 316 Oxygen Delivery Method Room Air,Oximask Oxygen Flow Rate 0 Narrative Exam Narrative: NAD, alert and oriented. Fluent speech. No tongue swelling. Lungs are clear, normal rate and effort. No wheezing. Heart is regular, no murmur gallop or rub. Abdomen is soft, non distended. Extremities are free of edema. Skin: Macular papular rash over the torso and left greater than right arm. Objective Labs 12/16/23 04:20 12/16/23 04:20 Labs: Laboratory Results - last 24 hr 12/16/23 04:20 WBC 8.7 RBC 5.32 Hgb 14.9 Hct 45.1 MCV 84.8 MCH 28.0 MCHC 33.0 RDW 16.6 H Plt Count 348 Neut % (Auto) 62.3 Lymph % (Auto) 24.4 L [place] % (Auto) 6.7 Eos % (Auto) 5.5 H Baso % (Auto) 1.1 Neut # (Auto) 5400 Lymph # (Auto) 2100 [place] # (Auto) 600 Eos # (Auto) 500 H Baso # (Auto) 100 Sodium 136 L Potassium 4.3 Chloride 97 L Carbon Dioxide 31 BUN 24 H Creatinine 1.24 Estimated GFR > 60 BUN/Creatinine Ratio 19.4 Glucose 93 Calcium 9.2 [facility] Medical History Opioid dependence in remission Morbid obesity with BMI of 45.0-49.9, adult Hypertension Lymphedema Cellulitis Social History household members: family Smoking Status: Current every day smoker alcohol intake: former additional social history: On disability No current insurance divorce, loss of dog, deaths, depressed tobacco: wants to quit food: tries to eat healthy -- but likes burgers -- eats veggies, quit etoh -- a long time ago -- recently increased- 2-3 /week HISTORY OF OPIOID addiction for PAIN -- off now sig trouble with mobility and car is not working pt has had sig problems with blood pressure in the past -- stops medication 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 [facility] 09/2022 Assessment & Plan Assessment & Plan narrative: 1. Right lower extremity cellulitis, severe, culture positive for Proteus vulgaris. Stop date of 12/16 for antibiotics. 2. Dehydration. Resolved. 3. Weakness and ground level fall due to 1. 4. Venous insufficiency. 5. Hypertension. 6. Depression. 7. Severe obesity. 8. Allergic reaction to cephalosporin, not present on admission. Plan of Treatment: -delay discharge 1 day, continue prednisone for rash. -continue antibiotics. THANIA: 12/16. Time-Based Coding :: [TOTAL MINUTES] spent with patient and on the chart (including review of chart, obtaining history, exam, reviewing outside data, placing orders, documenting exam and treatment plan, and counseling patient) on [DATE].
--- NOTE | 2023-12-16 16:15 | PT.IPTN ---
Current Diagnoses Lymphedema, not elsewhere classified (12/02/23) Non-pressure chronic ulcer of other part of right lower leg with fat layer exposed (12/02/23) Contusion of right shoulder, initial encounter (12/02/23) Physical Therapy Treatment Note M2 PT-IP Current Condition Start: 12/03/23 12:07 Freq: NEEDED Status: Active Protocol: Document 12/05/23 13:50 AB (Rec: 12/05/23 15:52 AB [id number]) Physical Therapy Current Condition Current Condition Evaluation Date 12/05/23 Treatment Diagnosis dehydration; R shoulder contusion; difficulty in walking Onset Date 12/02/23 M3 PT-IP Subjective Start: 12/03/23 12:07 Freq: NEEDED Status: Active Protocol: Document 12/16/23 16:35 TS (Rec: 12/16/23 16:38 TS [id number]) Subjective Physical Therapy Visit Type Type Treatment Note Visit Start Time 16:15 Visit Stop Time 16:30 Number of [facility] Visits 2 Physical Therapy Visit Comments Patient Comments Agreeable to PT Therapy Pain Assessment Pain When Pain Assessed During Mobility Pain Present Pain Present Pain Reported M4 PT-IP Mobility and Gait Start: 12/03/23 12:07 Freq: NEEDED Status: Active Protocol: Document 12/16/23 16:35 TS (Rec: 12/16/23 16:38 TS [id number]) PT-Transfer Assessment Sit to and From Stand Sit to and from Stand Contact Guard Assistance,1 Person Assistance,Use of Upper Extremities Comments Mobility Comments STS with FWW x2 CGA. pt ambulates ~50' in the room. pt was left back in the chair, all needs met. Gait Assessment Gait Gait Assistance Required: Contact Guard Assist,1 Person Assist Distance (Feet) 50 Assistive Devices Assistive Device Gait Belt,Front Wheeled Walker Gait Deviations General Gait Pattern Decreased Stride Length, Decreased Feet Clearance,Wide Based Gait Factors Limiting Gait Function Factors Limiting Gait Function Decreased Activity Tolerance, Decreased Strength,Limited Range of Motion,Pain,Poor Balance PT-Balance Assessment Sitting Balance and Reactions Static Sitting Balance Ability Good Dynamic Sitting Balance Ability Good Standing Balance and Reactions Static Standing Balance Ability Fair Dynamic Standing Balance Ability Fair Device Used FWW M5 PT-IP Objective Assessments Start: 12/03/23 12:07 Freq: NEEDED Status: Active Protocol: Document 12/05/23 13:50 AB (Rec: 12/05/23 15:52 AB [id number]) Orientation Orientation/Cognition Level of Alertness Alert Orientation Name,Place,Situation Language Function Ability No Deficits Noted Safety Awareness Decreased Safety Awareness Memory Description No Deficits Noted Strength Lower Extremity Strength Assessment Within Functional Limits Muscle Tone Muscle Tone WNL Yes M6 PT-IP Treatment Start: 12/03/23 12:07 Freq: NEEDED Status: Active Protocol: Document 12/16/23 16:35 TS (Rec: 12/16/23 16:38 TS [id number]) Physical Therapy Treatment Education Education Provided Safety M7 PT-IP Assessment and Plan Start: 12/03/23 12:07 Freq: NEEDED Status: Active Protocol: Document 12/16/23 16:35 TS (Rec: 12/16/23 16:38 TS [id number]) PT Summary Assessment and Plan Potential Rehabilitation Potential Fair Summary Impairments Pain,ROM,Strength,Balance, Coordination,Bed Mobility, Transfers,Gait,Activity Tolerance Progress Towards Goals Progressing Toward Goals,Slow Progress due to Pain Assessment Summary Pt is making some progress but continues to be slow. He is CGA for STS and for gati of ~ 50' in the room with FWW. PT continues to recommend SNF. Goals Bed Mobility Goal Independent Transfer Goal Standby Assistance,Front Wheeled Walker Gait Goal Standby Assistance,Front Wheel Walker Gait Distance 50 Other Goals up/down 3 steps L side bar SBA Days to Meet Goals 5 Frequency of Treatment Frequency Of Treatment Once a Day Treatment Plan Physical Therapy Treatment Plan Bed Mobility Training,Transfer Training,Gait Training, Therapeutic Exercise,Balance Retraining,Discharge Planning, Hot or Cold Pack,Neuromuscular Re-ed,Coordination Retraining ,Manual Therapy Precautions Other Precautions falls Recommendations To Nursing Amount of Assist Needed 1 Person Assist Discharge Recommendations PT Discharge Recommendations SNF Rehab Transportation Needs at Discharge Wheelchair/Cabulance
[2023-12-16 16:31] VITALS: BP 143/110; PULSE 67; RESP 18; TEMP 36.6; O2SAT 92
[2023-12-16 20:00] VITALS: BP 138/90; PULSE 89; RESP 20; TEMP 36.9; O2SAT 95
[2023-12-16] MEDS: polyethylene glycoL 3350 17 GM POWD.PACK PO (20:43)
[2023-12-16] MEDS: HYDROCODONE/ACET 5/325 TABLET 1 TAB PO (20:44)
[2023-12-17 00:37] VITALS: BP 129/81; PULSE 61; RESP 18; TEMP 36.6; O2SAT 94
[2023-12-17] MEDS: diphenhydrAMINE 25 MG TABLET PO (00:38)
[2023-12-17 04:46] LABS: Add Manual Diff / Slide Review NO; Basophils Absolute Auto 100 /uL (0-100); Basophils Percent Auto 1.1 % (0-2); Eosinophils Absolute Auto 0 /uL (0-450); Eosinophils Percent Auto 0.5 % (2-4); Hematocrit 42.9 % (41-53); Hemoglobin 14.3 g/dL (13.5-17.5); Lymphocytes Absolute Auto 1700 /uL (1100-4500); Mean Corpuscular HGB Conc 33.4 % (30-36); Mean Corpuscular Hemoglobin 28.2 PG (26-34); Mean Corpuscular Volume 84.3 fL (80-100); Monocytes Absolute Auto 800 /uL (0-900); Monocytes Percent Auto 7.9 % (3-14); Neutrophils Absolute Auto 7300 /uL (1500-7000); Neutrophils Percent Auto 73.5 % (50-75); Platelet Count 365 X10^3/uL (150-400); Red Blood Cell Count 5.09 X10^6/uL (4.5-5.9); Red Cell Distribution Width 16.3 % (11.6-14.8); White Blood Cell Count 9.9 X10^3/uL (4.5-11.0)
[2023-12-17 04:56] LABS: BUN Creatinine Ratio 23.3 (6-22); Blood Urea Nitrogen 31 mg/dL (9-20); Calcium 9.5 mg/dL (8.4-10.2); Carbon Dioxide 32 mmol/L (22-32); Chloride 96 mmol/L (98-107); Estimated Glomerular Filt Rate > 60 mL/min (>60); Glucose 109 mg/dL (70-100); HEMOLYSIS 16 (0-50); Potassium 4.3 mmol/L (3.4-5.1); Sodium 133 mmol/L (137-145)
[2023-12-17 06:00] VITALS: BP 137/84; PULSE 66; RESP 20; TEMP 36.1; O2SAT 96
[2023-12-17] MEDS: levoFLOXacin 250 MG TABLET 750 MG PO (06:24)
[2023-12-17] MEDS: FUROSEMIDE 40 MG TABLET 60 MG PO (06:24)
--- NOTE | 2023-12-17 07:56 | CM.DPC ---
DCP Cont. Reviewed EMR. Pt's discharge was delayed yesterday due to no transportation available to SNF. Set-up a taxi for him for this morning at 9:00am. Will fax updated clinicals and orders once available. No further needs indicated at this time.
[2023-12-17] MEDS: AMLODIPINE 5 MG TABLET 10 MG PO (08:06)
[2023-12-17] MEDS: METOPROLOL IR 25 MG TABLET PO (08:06)
[2023-12-17] MEDS: ENOXAPARIN 40 MG/0.4 ML SYRINGE SUBCUT (08:06)
[2023-12-17] MEDS: CITALOPRAM 10 MG TABLET 40 MG PO (08:07)
[2023-12-17] MEDS: GABAPENTIN 100 MG CAPSULE PO (08:07)
[2023-12-17] MEDS: LORazepam 0.5 MG TABLET PO (08:07)
[2023-12-17] MEDS: predniSONE 20 MG TABLET 60 MG PO (08:07)
[2023-12-17] MEDS: SPIRONOLACTONE 25 MG TABLET PO (08:07)
[2023-12-17] MEDS: OXYCODONE/ACETAMINOPHEN 5/325 TABLET 1 TAB PO (08:16)
--- NOTE | 2023-12-17 09:23 | PC.NURSE ---
Addendum entered by Anna Marie R.N. 12/17/23 09:53: [facility] called back, this RN was able to give report. Original Note: D/c summary packet given to Pt. Pt dressed with assistance. IV already removed. Pt exited to taxi via w/c with [employer]. Called [facility] to give report to [place], he was unavailable.
--- NOTE | 2023-12-17 10:20 | PM.DS.1 ---
History of Present Illness History of Present Illness Chief complaint: Found Down x4 Days Narrative: Per H&P: 58-year-old with past medical history of hypertension, morbid obesity, chronic lower extremities lymphedema, opioid dependence in remission, presents with a fall and was found down for four days. Per the patient report, the patient was sitting in his recliner when it collapsed and he fell to the floor. The patient had contusion of his right shoulder. The patient was too weak to get up and was down on the ground for three almost 4 days. Patient denies any lost of consciousness, but admit to hit his head lightly. Patient denies any headache. In our ER, the patient was hemodynamically stable without any signs of infection. Chest x-ray shows now clear sign of pneumonia. The patient, however, saturating well. Due to , patient shoulder pain as well as difficulty functioning at home, our ER physician would like to admit the patient for IV fluid hydration as well as for physical therapy. 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 Right lower extremity cellulitis, severe, culture positive for Proteus vulgaris. Stop date of 12/16 for antibiotics. 2. Dehydration. Resolved. 3. Weakness and ground level fall due to 1. 4. Venous insufficiency. 5. Hypertension. 6. Depression. 7. Severe obesity. 8. Allergic reaction to cephalosporin, not present on admission. Hospital Course: He was admitted for a fall and being down. He was found to have gross leg edema and a right leg wound and cellulitis. Cultures were positive for Proteus. He was initially treated with ceftriaxone and vancomycin. Vancomycin was stopped after cultures were back. He was seen by wound care and had good improvement with diuresis and wound care. He did have great debility. He was switched from ceftriaxone to cefdinir on December 09. He developed a rash on December 14. He was started on antihistamines in his cefdinir was changed to levofloxacin and he has improvement in his rash on December 15. He was last day for antibiotics will be December 16. He will be continued on prednisone for an additional 3 days at the intermediate [facility] and antihistamines. His antidepressant was restarted in the dose was increased from 20-40. He also had adjustments in his blood pressure medications. His Lasix was 60 b.i.d., this will be decreased to 60 daily on the day of discharge and his edema and BP will have to be monitored. Status at Discharge Cognitive/behavioral status at discharge: oriented Functional status at discharge: uses cane/walker Overall status at discharge: patient is progressing back to baseline Time Spent with Patient Time spent: Greater than 30 minutes Exam Vital Signs (past 8 hours): - 12/17/23 06:00 Temperature 96.9 F L Pulse Rate 66 Respiratory Rate 20 Blood Pressure 137/84 Pulse Oximetry 96 Oxygen Flow Rate 0 Fraction of Inspired Oxygen 30 SaO2/FiO2 Ratio 316 Oxygen Delivery Method Room Air,Oximask Oxygen Flow Rate 0 Objective Imaging Multiple studies:: Radiologist's impression: CT scan - chest: Radiologist's impression: The heart is significantly enlarged. Questionable mild prominence of the interstitial markings, correlate for signs of pulmonary edema. Venous US: Radiologist's impression: Unremarkable duplex arterial ultrasound without evidence significant peripheral vascular disease Labs 12/17/23 04:06 12/17/23 04:06 Labs: Laboratory Results - last 24 hr 12/17/23 04:06 WBC 9.9 RBC 5.09 Hgb 14.3 Hct 42.9 MCV 84.3 MCH 28.2 MCHC 33.4 RDW 16.3 H Plt Count 365 Neut % (Auto) 73.5 Lymph % (Auto) 17.0 L Dundy % (Auto) 7.9 Eos % (Auto) 0.5 L Baso % (Auto) 1.1 Neut # (Auto) 7300 H Lymph # (Auto) 1700 Dundy # (Auto) 800 Eos # (Auto) 0 Baso # (Auto) 100 Sodium 133 L Potassium 4.3 Chloride 96 L Carbon Dioxide 32 BUN 31 H Creatinine 1.33 H Estimated GFR > 60 BUN/Creatinine Ratio 23.3 H Glucose 109 H Calcium 9.5 PFSH Medical History Opioid dependence in remission Morbid obesity with BMI of 45.0-49.9, adult Hypertension Lymphedema Cellulitis Social History household members: family Smoking Status: Current every day smoker alcohol intake: former additional social history: On disability No current insurance divorce, loss of dog, deaths, depressed tobacco: wants to quit food: tries to eat healthy -- but likes burgers -- eats veggies, quit etoh -- a long time ago -- recently increased- 2-3 /week HISTORY OF OPIOID addiction for PAIN -- off now sig trouble with mobility and car is not working pt has had sig problems with blood pressure in the past -- stops medication 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 [facility] 09/2022 Discharge Assessment & Plan Assessment and Plan Assessment: 1. Right lower extremity cellulitis, severe, culture positive for Proteus vulgaris. Stop date of 12/16 for antibiotics. 2. Dehydration. Resolved. 3. Weakness and ground level fall due to 1. 4. Venous insufficiency. 5. Hypertension. 6. Depression. 7. Severe obesity. 8. Allergic reaction to cephalosporin, not present on admission. Plan of Treatment: Stable for discharge to intermediate facility. He was 1 more day of antibiotic, Levaquin on December 16. He will be on 4 days of prednisone at 60 mg daily for his drug induced rash. We will decrease his Lasix to once a day dosing. Discharge Plan Discharge Plan Patient Disposition: [facility] Other facility: [facility] Under care of provider: [facility] provider Provider Discharge Comment: Stable for discharge. He does have a rash related to antibiotics which will be treated with prednisone and antihistamines for the next several days. Discharge orders & Medications Prescriptions: New furosemide 40 mg Tablet 60 mg PO DAILY Qty: 30 0RF citalopram 10 mg Tablet 40 mg PO DAILY Qty: 30 0RF hydrocodone-acetaminophen 5-325 mg Tablet 1 tab PO Q4H PRN (Reason: Pain, Moderate (4-6)) Qty: 15 0RF prednisone 20 mg Tablet 60 mg PO DAILY Qty: 24 0RF levofloxacin 250 mg Tablet 750 mg PO 0700 Qty: 1 0RF amlodipine [Norvasc] 5 mg Tablet 10 mg PO DAILY Qty: 30 0RF diphenhydramine HCl [Allergy (diphenhydramine)] 25 mg Tablet 25 mg PO Q6HR PRN (Reason: Itching) Qty: 30 0RF nicotine 21 mg/24 hr Patch 24 Hour 21 mg topical DAILY Qty: 14 0RF zolpidem 5 mg Tablet 5 mg PO BEDTIME PRN (Reason: Sleep) Qty: 10 0RF nystatin [Nystop] 100,000 unit/gram Powder 1 applic topical BID PRN (Reason: Rash (groin)) Qty: 30 0RF metoprolol tartrate 25 mg Tablet 25 mg PO BID Qty: 60 0RF Continued spironolactone 25 mg tablet 25 mg PO DAILY Qty: 30 0RF gabapentin 100 mg capsule 100 mg PO TID Qty: 60 4RF Discontinued furosemide 20 mg tablet 20 mg PO DAILY Patient Comments: i have not been taking any of the meds citalopram 20 mg tablet 20 mg PO DAILY Qty: 30 5RF Patient Comments: pt not taking Follow up/Referrals: Neelam Doss MD [Primary Care Provider] - Discharge Health Status Precautions: [place] Diet/Activity/Treatments Diet: Regular Liquid consistency: Normal/Thin Food texture: Regular Activity: As tolerated. Skin/Wound/Dressing Care Report to your healthcare provider any signs of infection, such as:: chills, fever, increased pain, unusual drainage and unusual redness Visit Report/Discharge Packet Stand Alone Forms: Patient Portal/API Discharge Data Primary Care Provider: Neelam Doss
== END 2023-12-17 08:50 | DRG 603 ==
LOC: ED 22:47 → AC 12-03 07:44
PROVIDERS: Hospitalist; Internal Medicine; Admitting Provider Internal Medicine; Emergency Provider Emergency Medicine; PCP Family Medicine; Referring Provider Emergency Medicine; Visit Provider Internal Medicine
DX: L03.115 Cellulitis of right lower limb (principal); Z68.43 Body mass index [BMI] 50.0-59.9, adult; L97.912 Non-pressure chronic ulcer of unspecified part of right lower leg with fat layer exposed; S40.011A Contusion of right shoulder, initial encounter; E66.01 Morbid (severe) obesity due to excess calories; F17.200 Nicotine dependence, unspecified, uncomplicated; F11.21 Opioid dependence, in remission; E86.0 Dehydration; I10 Essential (primary) hypertension; I89.0 Lymphedema, not elsewhere classified; I87.2 Venous insufficiency (chronic) (peripheral); R53.1 Weakness; F32.A Depression, unspecified; B96.4 Proteus (mirabilis) (morganii) as the cause of diseases classified elsewhere; L29.9 Pruritus, unspecified; T36.1X5A Adverse effect of cephalosporins and other beta-lactam antibiotics, initial encounter; W18.30XA Fall on same level, unspecified, initial encounter
CPT/HCPCS: 36415; 71045; 80048; 80053; 80202; 81003; 81015; 82550; 82962; 83605; 83690; 83735; 84145; 85025; 85027; 85610; 85651; 85730; 86140; 87040; 87070; 87075; 87077; 87186; 87205; 93925; 94660; 94762; 96360; 96361; 97116; 97162; 97166; 97530; 97535; 99233; 99284; 99285; 99406; J0696; J1644; J1650; J1940